=== PATIENT | male | born 1975 | race Caucasian/White ===

== ENCOUNTER 2017-10-21 23:02 | Emergency (ER) | payer SELFPAY ==
[~2017-10-21] VITALS: Ht 180.3 cm; Wt 79.4 kg
[~2017-10-21 23:02] MED LIST: AZIT250T PO; EMTR1TAB12 PO; Fluconazole PO; RITO100T PO; [UNRECOGNIZED DRUG - CODE] PO
[2017-10-21 23:04] VITALS: BP 114/71
--- NOTE | 2017-10-22 00:15 | NUR ---
PT BB SELF C/C RASH/ITCHING AND SWELLING "ALL OVER BODY" X 3 MONTHS. PT STATES "I HAVE WHITE PATCHES IN MY MOUTH FOR 3-4 WKS". PT AMBULATED TO BED WITH STEADY GAIT. PT PLACED ON MONITOR WITH VS WNL. PT SITTING IN BED IN NO ACUTE DISTRESS. AWAITING MD ALLEN.
[2017-10-22] MEDS ORDERED: LIDOCAINE VISCOUS 2% UD 15 ML UDC ONE (00:28)
[2017-10-22] MEDS ORDERED: predniSONE 20 MG TABLET ONE (00:29)
[2017-10-22] MEDS ORDERED: LIDOCAINE VISCOUS 2% UD 15 ML UDC MM ONE (00:30)
[2017-10-22] MEDS ORDERED: predniSONE 20 MG TABLET PO ONE (00:30)
== END 2017-10-22 01:13 | disposition home or self-care (01) ==
LOC: ER 23:07
DX: K13.21 Leukoplakia of oral mucosa, including tongue (principal); R21 Rash and other nonspecific skin eruption; F17.200 Nicotine dependence, unspecified, uncomplicated; Z86.19 Personal history of other infectious and parasitic diseases
CPT/HCPCS: A4606; Z7610

== ENCOUNTER 2018-02-06 18:58 | Emergency (ER) | payer SELFPAY ==
[~2018-02-06] VITALS: Ht 180.3 cm; Wt 79.4 kg
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
--- NOTE | 2018-02-06 19:15 | NUR ---
MD AT BEDSIDE FOR EVALUATION
[2018-02-06] MEDS ORDERED: ACETAMINOPHEN ES 500 MG TABLET ONE (19:27)
[2018-02-06] MEDS ORDERED: ACETAMINOPHEN ES 500 MG TABLET PO ONE (19:30)
[2018-02-06] MEDS ORDERED: IV NS 0.9% 1,000 ML BAG IV ONE (19:30)
--- NOTE | 2018-02-06 19:45 | NUR ---
AT BEDSIDE FOR IV INSERTION. PT REFUSED IV INSERTION, FLUIDS, AND CT WITH CONTRAST. RISKS AND BENEFITS EXPLAINED TO PT, PT VERBALIZED UNDERSTANDING.
--- NOTE | 2018-02-06 19:56 | NUR ---
PT BROUGHT BY RADIOLOGY FOR XRAY AND CT
--- NOTE | 2018-02-06 20:06 | NUR ---
PT BROUGHT BACK FROM RADIOLOGY
--- NOTE | 2018-02-06 21:07 | NUR ---
Patient discharged to home in stable condition. Written and verbal after care instructions given. Patient verbalizes understanding of instruction. Pt ambulatory with a steady gait
[2018-02-06 21:08] VITALS: BP 135/72
== END 2018-02-06 21:19 | disposition home or self-care (01) ==
LOC: ER 19:01
DX: S20.212A Contusion of left front wall of thorax, initial encounter (principal); Z21 Asymptomatic human immunodeficiency virus [HIV] infection status; F17.200 Nicotine dependence, unspecified, uncomplicated; Z79.899 Other long term (current) drug therapy; Y04.0XXA Assault by unarmed brawl or fight, initial encounter; Y93.89 Activity, other specified; Y92.89 Other specified places as the place of occurrence of the external cause; Y99.8 Other external cause status
CPT/HCPCS: 71046; 74176; 99284; A4606; A4649; J7030; Z7610

== ENCOUNTER 2019-06-05 14:58 | Inpatient (IN) | payer MEDICAID ==
[2019-06-03 20:24] VITALS: BP 115/74
[~2019-06-05] VITALS: Ht 180.3 cm; Wt 80.7 kg
--- NOTE | 2019-06-05 14:58 | NUR ---
CHEYENNE RA 878 FROM HOME, C/O FLU-LIKE SX,COUGH/SOB , PT TO BED 6, NAD NOTED, PT ON MONITOR, VSS, PENDING MD ALLEN
[2019-06-05] MEDS ORDERED: IV NS 0.9% 1,000 ML BAG IV ONE (15:30)
[2019-06-05 15:47] LABS: BASOPHILS % (AUTO) 0.7 % (0.0-2.0); EOSINOPHILS % (AUTO) 18.6 % (0.0-6.0); HEMATOCRIT 34 % (39-51); LYMPHOCYTES % (AUTO) 26.2 % (20.0-44.0); MEAN CORPUSCULAR HGB CONC 33 g/dl (31.0-36.0); MEAN CORPUSCULAR VOLUME 85 fL (80-96); MONOCYTES # (AUTO) 0.4 /CMM (0.1-1.30); NEUTROPHILS # (AUTO) 1.7 /CMM (1.8-8.9); NEUTROPHILS % (AUTO) 44.5 % (43.0-81.0); PLATELET COUNT (AUTO) 111 /CMM (150-450); RED BLOOD CELL COUNT(AUTO) 3.97 MIL/uL (4.5-6.0); WHITE BLOOD COUNT (AUTO) 3.7 K/uL (4.3-11.0)
[2019-06-05] MEDS ORDERED: VANCOMYCIN 1 GM in IV D5W 250 ML IV ONE (16:00)
[2019-06-05] MEDS ORDERED: CEFEPIME 1 GM in IV D5W 50 ML IV ONE ×2 (16:00→18:30)
[2019-06-05] MEDS ORDERED: SULFAMETHOXAZOLE/TRIMETHOPRIM 20 ML in IV D5W 500 ML IV SCH (16:00)
[2019-06-05] MEDS ORDERED: DEXAMETHASONE SOD PHOSPHATE 10 MG/ML VIAL IV ONE (16:00)
[2019-06-05 16:07] LABS: SODIUM SERUM 135 mmol/L (136-145)
[2019-06-05 16:08] LABS: CALCIUM, SERUM 7.9 mg/dL (8.5-10.1); CARBON DIOXIDE 30 mmol/L (21-32); CHLORIDE 101 mmol/L (98-107); CREATININE 0.8 mg/dL (0.6-1.3); GLUCOSE 100 mg/dL (74-106); POTASSIUM 4.6 mmol/L (3.5-5.1); UREA NITROGEN, BLOOD 20 mg/dL (7-18)
[2019-06-05] MEDS ORDERED: DEXAMETHASONE SOD PHOSPHATE 10 MG/ML VIAL ONE (16:16)
[2019-06-05 16:24] LABS: ALKALINE PHOSPHATASE 58 U/L (46-116); ASPARTATE AMINOTRANSFERASE 28 U/L (15-37); BILIRUBIN,TOTAL 0.2 mg/dL (0.2-1.0)
[2019-06-05 16:25] LABS: ALANINE AMINOTRANSFERASE 28 U/L (12-78); ALBUMIN 2.3 g/dL (3.4-5.0); B-TYPE NATRIURETIC PEPTIDE 55 PG/ML (0-125); TOTAL PROTEIN, SERUM 7.7 g/dL (6.4-8.2)
--- NOTE | 2019-06-05 16:45 | NUR ---
PT. 53 Y OLD AWAKE AND ALERT IN ER ROOM # 6 REFUSED ABG AND BIPAP USE ER INFORMED AND PT. CONVICTED TO USE BIPAP FOR SAFETY, BUT PT. STILL REFUSING THE ABG, BIPAP PLACED ON AT 1645 WITH NOTED SETTINGS, AND PLUGGED TO RED OUT LET AND ALARMS ARE SET AND FUNCTIONAL. B/S BILATERALLY DIMINISHED AND AMBU BAG REMAIN AT THE BEDSIDE. PT. KHALIF. BIPAP AND EDUCATED ABOUT THE MACHINE. CONTINUE TO MONITOR. Addendum: 06/05/19 at 1858 by PRAMOD ESPINOSA RT Amended: Links added.
[2019-06-05] MEDS ORDERED: SULF1TAB48 PO (17:16)
[2019-06-05 17:38] LABS: APPEARANCE,URINE Clear (CLEAR); BILIRUBIN,URINE Negative (NEGATIVE); BLOOD, URINE Trace-intact Ery/uL (NEGATIVE); COLOR,URINE Yellow (YELLOW); KETONES,URINE Negative (NEGATIVE); LEUKOCYTE ESTERASE ,URINE Negative (NEGATIVE); NITRITE, URINE Negative (NEGATIVE); PROTEIN,URINE Negative (NEGATIVE); UGLUCOSE Negative (NEGATIVE); UROBILINOGEN,URINE 0.2 EU/dL (0.2)
[2019-06-05 17:58] LABS: BACTERIA,URINE Rare /HPF (None Seen); SQUAMOUS EPITHELIAL CELL,UR None Seen /HPF (None Seen)
[2019-06-05 17:59] LABS: RBC,URINE 0-2 /HPF (0-2); WBC,URINE NONE SEEN /HPF (0-3)
--- NOTE | 2019-06-05 18:05 | NUR ---
ICU 259
[2019-06-05] MEDS ORDERED: ZOLPIDEM TARTRATE 5 MG TABLET PO PRN (18:30)
[2019-06-05] MEDS ORDERED: Z GUARD REMEDY 2 OZ OINT TP PRN (18:30)
[2019-06-05] MEDS ORDERED: ACETAMINOPHEN 325 MG TABLET PO PRN (18:30)
[2019-06-05] MEDS ORDERED: MAGNESIUM HYDROXIDE 30 ML UDC PO PRN (18:30)
[2019-06-05] MEDS ORDERED: HYDROCODONE/APAP 5/325MG 1 EACH TABLET PO PRN (18:30)
[2019-06-05] MEDS ORDERED: ONDANSETRON HCL/PF 4 MG/2 ML VIAL IVP PRN (18:30)
[2019-06-05] MEDS ORDERED: MAG HYDROX/AL HYDROX/SIMETH 30 ML UDC PO PRN (18:30)
--- NOTE | 2019-06-05 18:31 | NUR ---
called for report, no nurse until pm shift.
--- NOTE | 2019-06-05 19:55 | NUR ---
CALLED PM SHIFT NURSE, NOT READY AT THE MOMENT.
--- NOTE | 2019-06-05 19:58 | NUR ---
I WAS DRAWING BLOOD FOR A PT WHEN ER CALLED FOR REPORT, I CALLED BACK TO ER SOON I WAS DONE WITH BLOOD DRAW AFTER 3 MINUTES
--- NOTE | 2019-06-05 20:06 | NUR ---
REPORT GIVEN TO KIM ARMAS FOR JHONATAN PT WILL BE TRANSPORTED TO ICU VIA ACLS PROTOCOL
--- NOTE | 2019-06-05 20:22 | NUR ---
pt transported to icu
[2019-06-05 20:24] VITALS: BP 115/74
[2019-06-05 20:30] VITALS: BP 115/74
--- NOTE | 2019-06-05 20:30 | NUR ---
ENGINEERING TEAM SUPERVISOR - NOTES - PT RECEIVED FROM ER FOR PNEUMONIA, COMPLAINING OF SOB AND LOW O2SAT, REQUIRING BIPAP. PT IS AWAKE, ALERT, ORIENTED X 4, PT IS ABLE TO WALK, STAND AND USE ALL EXTREMITIES. PT REFUSED BIPAP WHEN HE ARRIVED TO ICU AND HE WAS PLACED ON 12 LPM VIA SIMPLE MASK AFTER DESATTING INTO LOW 80S, HE IS NOW SATTING 92%. PT IS IN SINUS RHYTHM HR 80S, BP WNL. PT IS USING URINAL, ADEQUATE CLEAR YELLOW URINE OUTPUT. SKIN IS INTACT, PT HAS ILSA 20G IV AND IS REFUSING ADDITIONAL IV ATTEMPT. PT GIVEN ANTIBIOTICS AND STARTED ON IVF NS @ 100 ML/HR. WILL CONTINUE TO MONITOR
[2019-06-05] MEDS: IV NS 0.9% 1,000 ML IV PRN (20:35)
[2019-06-05] MEDS: AZITHROMYCIN 500 MG in IV D5W 250 ML IV SCH (20:39)
[2019-06-05 21:00] VITALS: BP 109/70
[2019-06-05] MEDS: methylPREDNISolone SOD SUCC 125 MG/2ML VIAL IV SCH (21:52)
[2019-06-05 22:00] VITALS: BP 115/66
[2019-06-05 23:00] VITALS: BP 110/65
[2019-06-06] VITALS (30 sets, daily range): BP systolic 93–127; BP diastolic 43–82
--- NOTE | 2019-06-06 04:45 | NUR ---
PT REFUSED LAB DRAW, PT EDUCATED ON IMPORTANCE OF LABS, AND PT STILL WANTS TO GO BACK TO SLEEP, WILL CONTINUE TO MONITOR
[2019-06-06] MEDS: methylPREDNISolone SOD SUCC 125 MG/2ML VIAL IV SCH ×3 (09:33→18:24)
[2019-06-06 11:13] LABS: BASOPHILS % (AUTO) 0.3 % (0.0-2.0); EOSINOPHILS % (AUTO) 0.1 % (0.0-6.0); HEMATOCRIT 32 % (39-51); HEMOGLOBIN 10.5 g/dL (13.5-17.5); LYMPHOCYTES # (AUTO) 0.9 /CMM (0.8-4.8); LYMPHOCYTES % (AUTO) 22.4 % (20.0-44.0); MEAN CORPUSCULAR HGB CONC 32 g/dl (31.0-36.0); MEAN CORPUSCULAR VOLUME 85 fL (80-96); MONOCYTES # (AUTO) 0.3 /CMM (0.1-1.30); MONOCYTES % (AUTO) 7.2 % (2.0-12.0); NEUTROPHILS # (AUTO) 2.7 /CMM (1.8-8.9); PLATELET COUNT (AUTO) 107 /CMM (150-450); RED BLOOD CELL COUNT(AUTO) 3.81 MIL/uL (4.5-6.0); WHITE BLOOD COUNT (AUTO) 3.9 K/uL (4.3-11.0)
[2019-06-06 12:02] LABS: CREATININE 0.6 mg/dL (0.6-1.3); PHOSPHORUS 3.7 mg/dL (2.5-4.9); POTASSIUM 4.8 mmol/L (3.5-5.1)
[2019-06-06] MEDS: IV NS 0.9% 1,000 ML IV PRN ×2 (14:36→20:38)
[2019-06-06] MEDS: SULFAMETHOXAZOLE/TRIMETHOPRIM 20 ML in IV D5W 500 ML IV SCH ×2 (15:13→21:11)
[2019-06-06] MEDS: CEFEPIME 2 GM in IV D5W 100 ML IV SCH (18:24)
[2019-06-06] MEDS ORDERED: FLUCONAZOLE IN NS 200 MG in PREMIX 1 EA IV SCH ×2 (20:00)
--- NOTE | 2019-06-06 20:00 | NUR ---
DRY CLEANING MANAGER - NOTES - PT RECEIVED SLEEPING, EASY TO AROUSE, ALERT, ORIENTED X 4, PT IS ABLE TO WALK, STAND AND USE ALL EXTREMITIES. PT ON 12 LPM VIA SIMPLE MASK, SATTING LOW 90S%. PT IS IN SINUS RHYTHM HR 80S, BP WNL. PT IS USING URINAL, ADEQUATE CLEAR YELLOW URINE OUTPUT. SKIN IS INTACT, PT HAS ILSA 20G IV AND IS REFUSING ADDITIONAL IV ATTEMPT. PT ON ANTIBIOTICS AND NS @ 100 ML/HR. WILL CONTINUE TO MONITOR
[2019-06-06] MEDS: AZITHROMYCIN 500 MG in IV D5W 250 ML IV SCH (20:11)
[2019-06-07] VITALS (19 sets, daily range): BP systolic 111–130; BP diastolic 54–76
--- NOTE | 2019-06-07 00:05 | NUR ---
PT DESATTING TO 87% ON 15 LPM SIMPLE MASK, PT CHANGED TO NON REBREATHER AT 15 LPM, PT NOW SATTING MID 90S %
[2019-06-07 04:06] LABS: *BASOS 0 % (Not Estab.); *EOS 0 % (Not Estab.); *HCT 32.2 % (37.5-51.0); *HGB 10.2 g/dL (13.0-17.7); *IMMATURE GRANULOCYTES 0 % (Not Estab.); *LYMPHOCYTES 23 % (Not Estab.); *MCH 26.8 pg (26.6-33.0); *MCHC 31.7 g/dL (31.5-35.7); *MCV 85 fL (79-97); *MONOCYTES 4 % (Not Estab.); *MONOS, ABSOLUTE 0.2 x10E3/uL (0.1-0.9); *NEUTROPHILS 73 % (Not Estab.); *NEUTROPHILS, ABSOLUTE 3.3 x10E3/uL (1.4-7.0); *PLT 132 x10E3/uL (150-450); *RBC 3.81 x10E6/uL (4.14-5.80)
[2019-06-07] MEDS: SULFAMETHOXAZOLE/TRIMETHOPRIM 20 ML in IV D5W 500 ML IV SCH ×2 (04:29→16:13)
--- NOTE | 2019-06-07 11:48 | NUR ---
ANNUAL GIVING OFFICER NOTE RECEIVED PATENT FROM MERISSA ,PATIENT ALERT ORIENTED, ON SIMPLE MAST AT THIS TIME SAT 92% , ON TELE MONITOR SR HR 82 , RT UPPER ARM HL INTACT ON IVF ORDERED , BED IN LOWEST AND LOCKED POSITION , WILL CONT TO MONITOR
[2019-06-07] MEDS: methylPREDNISolone SOD SUCC 125 MG/2ML VIAL IV SCH ×3 (11:51→16:19)
--- NOTE | 2019-06-07 12:19 | NUR ---
ICU R NOTE SOLU-MEDROL WAS GIVEN BY MERISSA ARMAS 26 MIN AGO WILL F\U
--- NOTE | 2019-06-07 12:34 | NUR ---
BRIDGE CLUB MANAGER NOTE SPUTUM FOR AF[employer] COLLECTED SENT TO LAB
--- NOTE | 2019-06-07 12:37 | NUR ---
FELT FINISHER NOTE ORTHOSTATIC BP DONE ONLY BOTH POSITION SUPINE AND SITTING UNABLE TO STAND UP AT THIS TIME
[2019-06-07 13:08] LABS: *% CD 4 POS. LYMPH 1.6 % (30.8-58.5); *ABSOLUTE CD 4 HELPER 16 /uL (359-1519); *ABSOLUTE CD 8 SUPPRESSOR 720 /uL (109-897); *CD4/CD8 RATIO 0.02 (0.92-3.72)
--- NOTE | 2019-06-07 13:51 | NUR ---
PETTY RN NOTES RECEIVED PATENT FROM ICU, ALERT ORIENTED X4 ,ON SIMPLE MASK ON 15 L SAT 95%, ON TELE MONITOR SR HR 98 , RT UPPER ARM HL INTACT ON IVF ORDERED, BED IN LOWEST AND LOCKED POSITION , WILL CONT TO MONITOR CALL LIGHT WITHIN REACH
[2019-06-07] MEDS: IV NS 0.9% 1,000 ML IV PRN (14:52)
--- NOTE | 2019-06-07 15:36 | NUR ---
AEROSPACE CONTROL AND WARNING SYSTEMS NOTE CALLED MRI DEPARTMENT STATED THAT WILL BE DONE TODAY
--- NOTE | 2019-06-07 15:55 | NUR ---
Social service consult requested by NATANAEL Lanier for possible homelessness. Per MD notes and chart review, pt. is a 44-year-old male, with history of HIV, Syphilis and recent pneumonia who presented to the ED for evaluation of dizziness for the past 1 week. ELECTRICIAN THIRD contacted pt's PAEWL Angulo, regarding if pt. is homeless. Per PAWEL Angulo, pt is not homeless and resides with his family in [place]. No other social service needs are requested at this time. ELECTRICIAN THIRD is available, if needed.
--- NOTE | 2019-06-07 16:12 | NUR ---
RT Sputum sample obtained and given to Ochoa Angulo.
--- NOTE | 2019-06-07 16:23 | NUR ---
GALINDO RN NOTE ON BREATHING TX ORDERED
--- NOTE | 2019-06-07 18:55 | NUR ---
PETTY RN NOTE MRI DONE
[2019-06-07] MEDS: ETHAMBUTOL HCL (400 MG) 400 MG TABLET PO SCH (18:59)
[2019-06-07] MEDS: RIFAMPIN 300 MG CAPSULE PO SCH (18:59)
--- NOTE | 2019-06-07 19:27 | NUR ---
RN OPENING NOTES RECEIVED PATIENT FROM PAWEL BRADFORD. PATIENT AWAKE IN BED. A/O X 4. PATIENT ABLE TO VERBALIZE NEEDS. ON SIMPLE MASK ON 15 L, TOLERATING WELL. TELE MONITOR SHOWING SR HR 76. NO COMPLAINTS OF PAIN OR DISCOMFORT AT THIS TIME. IV SITE ILSA IN PLACE, INTACT, PATENT, NO SIGNS OF INFECTION/INFILTRATION. SAFETY PRECAUTIONS IMPLEMENTED; CALL LIGHT WITHIN REACH, BED LOW, BED LOCKED, BILATERAL UPPER SIDE RAILS UP. WILL CONTINUE TO MONITOR.
[2019-06-07] MEDS: CEFEPIME 2 GM in IV D5W 100 ML IV SCH (19:28)
[2019-06-07] MEDS: AZITHROMYCIN 500 MG in IV D5W 250 ML IV SCH (20:06)
--- NOTE | 2019-06-08 00:05 | NUR ---
RN NOTES PATIENT REFUSED VITAL SIGNS AT 0000 AND MEDICATION DUE AT 0000. PATIENT STATES HE DOES NOT WANT TO BE BOTHERED. EXPLAINED THE RISKS AND BENEFITS. PATIENT STILL INSISTS ON REFUSING MED IV AND VITAL SIGNS AT THIS TIME. WILL CONTINUE TO MONITOR.
--- NOTE | 2019-06-08 04:05 | NUR ---
RN NOTES PATIENT NONCOMPLIANT WITH VITAL SIGNS DUE FOR 0400. PATIENT STATES HE DOES NOT WANT TO BE DISTURBED. HE STATES "LET ME GET SOME REST. DO NOT DISTURB ME. PLEASE TURN OFF THE LIGHT." EXPLAINED THE RISKS AND BENEFITS OF VITAL SIGNS. PATIENT INSISTS ON REFUSING VITAL SIGNS AT THIS TIME. PATIENT NON COMPLIANT. WILL CONTINUE TO MONITOR.
--- NOTE | 2019-06-08 06:11 | NUR ---
RN CLOSING NOTES PATIENT IS CURRENTLY ASLEEP, EASILY AWAKENED. ON SIMPLE MASK ON 15 LPM, TOLERATING WELL. TELE MONITOR SHOWING SR 74. NO SIGNS OF FACIAL GRIMACING INDICATING PAIN OR DISCOMFORT AT THIS TIME. IV SITE ILSA IN PLACE, INTACT AND PATENT, NO SIGNS OF INFECTION/INFILTRATION, FLUSHED. PATIENT KEPT CLEAN, DRY AND COMFORTABLE. ALL NEEDS MET ON SHIFT. MEDS THAT WERE GIVEN SHOW NO ADVERSE EFFECTS. SAFETY PRECAUTIONS IMPLEMENTED; CALL LIGHT WITHIN REACH, BED LOW, BED LOCKED, BILATERAL UPPER SIDE RAILS UP. WILL ENDORSE TO DAYSWAFT NURSE FOR CONTINUITY OF CARE.
[2019-06-08 08:00] VITALS: BP 116/70
[2019-06-08] MEDS: ETHAMBUTOL HCL (400 MG) 400 MG TABLET PO SCH (08:16)
[2019-06-08] MEDS: methylPREDNISolone SOD SUCC 125 MG/2ML VIAL IV SCH ×3 (08:16→16:03)
--- NOTE | 2019-06-08 08:46 | NUR ---
leasing consultant Notes Patient is in bed. Patient verbalizes anxiety and desire to go home. MD Connei Perez notified. Bed is in lowest position, call light within reach, patient is able to make his needs known to staff. Teaching completed on reason for isolation and purpose of medication.
[2019-06-08] MEDS ORDERED: FLUCONAZOLE (100 MG) 100 MG TABLET PO SCH (09:00)
[2019-06-08] MEDS ORDERED: SODIUM CL FOR INHALATION 3% 15 ML VIAL.NEB IH ONE ×2 (09:30→17:00)
[2019-06-08] MEDS: SULFAMETHOXAZOLE/TRIMETHOPRIM 20 ML in IV D5W 500 ML IV SCH ×5 (09:45→23:48)
[2019-06-08] MEDS: RIFAMPIN 300 MG CAPSULE PO SCH (09:46)
[2019-06-08] MEDS ORDERED: LORAZEPAM 0.5 MG TABLET PO PRN (10:00)
--- NOTE | 2019-06-08 10:35 | NUR ---
telephone exchange operator note endorsed care to eden graham
[2019-06-08 12:00] VITALS: BP 111/71
[2019-06-08] MEDS: IV NS 0.9% 1,000 ML IV PRN (13:56)
[2019-06-08 16:00] VITALS: BP 123/78
[2019-06-08] MEDS: CEFEPIME 2 GM in IV D5W 100 ML IV SCH (18:10)
--- NOTE | 2019-06-08 18:30 | NUR ---
SIGNS AND DISPLAYS SALESPERSON NOTES PATIENT A/O X 4 AT TIMES PATIENT IS NOT COOPERATIVE WITH CARE. PATIENT WANTS TO LEAVE AND GO AMA. PATIENT IS ON TELE MONITOR SR8-'S PATIENTS SKIN IS INTACT. PATIENT IS USING A URINAL. WITH 400 ML COLOR IS ORANGE OUTPUT. NO PAIN, NO SIGNS OF ACUTE RESPIRATORY DISTRESS BED LOCKED AND LOWEST POSITION CALL LIGHT WITH IN REACH ALL SAFEY MEASURE IMPLEMENTED PER HOSPITAL POLICY
--- NOTE | 2019-06-08 19:25 | NUR ---
RN OPENING NOTES: PATIENT IN BED, AWAKE, AND VERBALLY RESPONSIVE. NO SOB. HOB ELEVATED. NO C/O PAIN AT THIS TIME. AAOX4. SAFETY PRECAUTIONS IMPLEMENTED. BED LOCKED AND IN LOWEST POSITION FOR SAFETY. SIDE RAILS X 2 UP. CALL LIGHT PLACED WITHIN REACH. WILL CONT. TO MONITOR. Addendum: 06/08/19 at 2105 by CHRIS MARTEL RN ON PLACEMENT SECRETARY, SHOWING NSR, HR 80s.
[2019-06-08 20:00] VITALS: BP 132/83
[2019-06-08] MEDS ORDERED: AZITHROMYCIN 250 MG TABLET PO SCH (20:00)
[2019-06-09] VITALS: BP 147/80
--- NOTE | 2019-06-09 01:40 | NUR ---
RN NOTE: AT 0045, PATIENT VERBALIZED HE WANTS TO LEAVE AGAINST MEDICAL ADVICE (AMA). UPON FURTHER ASSESSMENT, PATIENT STATED, "I HAVE MADE UP MY MIND. I WANT TO LEAVE THIS HOSPITAL." PATIENT STATED HE FEELS ANXIOUS AND DOES NOT WANT TO STAY ANY LONGER BECAUSE HE HAS BEEN HERE MORE THAN 3 DAYS. OFFERED PRN ANTI-ANXIETY MEDICATION BUT PATIENT REFUSED. EXPLAINED TO PATIENT THE RISKS AND CONSEQUENCES OF LEAVING THE HOSPITAL AND THE BENEFITS OF CONTINUED TREATMENT AND HOSPITALIZATION. CHARGE NURSE AND RN EXPLAINED TO HIM THAT AFB CULTURE SMEAR IS STILL IN PROCESS TO RULE OUT TB. PATIENT STILL REFUSED FURTHER CARE. AT 0105, SPOKE WITH DR. JYOTI GARCIA AND MADE AWARE OF PATIENT'S PLAN OF CARE AND THE INCIDENT. PER MD, OK TO HAVE PATIENT GO AMA. PATIENT IS AAOX4 AND IN STABLE CONDITION. PATIENT SIGNED AMA FORM. IV ACCESS (R) UPPER ARM G20 AND TELE MONITOR REMOVED. PATIENT LEFT THE UNIT WITH ALL PERSONAL BELONGINGS TAKEN. NURSING CLINICAL DATA MANAGEMENT MANAGER JOHN MADE AWARE. WILL NOTIFY WOOD (INFECTION CONTROL) TO CONTACT DEPARTMENT OF HEALTH. Addendum: 06/09/19 at 0300 by CHRIS MARTEL RN AMA FORM SIGNED BY PATIENT PLACED IN HIS CHART. Addendum: 06/09/19 at 0739 by CHRIS MARTEL RN PM CHARGE NURSE KAREN ENDORSED TO AM CHARGE NURSE NICHO ABOUT THE INCIDENT AND TO NOTIFY WOOD (INFECTION CONTROL).
== END 2019-06-09 01:30 | disposition left against medical advice (07) | DRG 974 ==
LOC: ER 15:05 → ICU 18:13 → TELE1 06-07 13:25
PROVIDERS: ADMIT Internal Medicine; ATTEND Internal Medicine
DX: B20 Human immunodeficiency virus [HIV] disease (principal); J96.01 Acute respiratory failure with hypoxia; G93.41 Metabolic encephalopathy; E43 Unspecified severe protein-calorie malnutrition; B59 Pneumocystosis; G93.6 Cerebral edema; E87.1 Hypo-osmolality and hyponatremia; I76 Septic arterial embolism; Z87.01 Personal history of pneumonia (recurrent); F19.10 Other psychoactive substance abuse, uncomplicated; Z91.19 Patient's noncompliance with other medical treatment and regimen; R93.0 Abnormal findings on diagnostic imaging of skull and head, not elsewhere classified; D63.8 Anemia in other chronic diseases classified elsewhere; Z68.24 Body mass index [BMI] 24.0-24.9, adult; F17.210 Nicotine dependence, cigarettes, uncomplicated
CPT/HCPCS: 36415; 70450-TC; 70551-TC; 71045-TC; 71250-TC; 80048-TC; 80076-TC; 80305; 81000-TC; 83605-TC; 83615-TC; 83735-TC; 83880; 84100-TC; 84484-TC; 85025-TC; 85730-TC; 86360; 87040-TC; 87081-TC; 87086-TC; 87116; 87206; 87899; 93307-TC; 94640-TC; 94760-TC; A4216; A4218; G0378; J0456; J0692; J1100; J1450; J2405; J2930; J3370; J3490; J7030; J7060

== ENCOUNTER 2019-06-15 01:40 | Inpatient (IN) | payer MEDICAID ==
[~2019-06-15] VITALS: Ht 180.3 cm; Wt 73.0 kg
[2019-06-15] VITALS (19 sets, daily range): BP systolic 100–137; BP diastolic 56–83
[~2019-06-15 01:40] MED LIST changes: -AZIT250T PO; -EMTR1TAB12 PO; -Fluconazole PO; -RITO100T PO; +SULF1TAB48 PO; -[UNRECOGNIZED DRUG - CODE] PO
--- NOTE | 2019-06-15 01:47 | NUR ---
PT BIB RA FROM HOME C/O SOB. PT STATES THAT HE WAS HERE 2 DAYS AGO FOR PNEUMONIA, BUT LEFT AMA BECAUSE HE WAS ANXIOUS. PT IS HIV POSITIVE. PT STATES HE RECENTLY USED CRYSTAL METH ABOUT A DAY AGO AND IS HAVING TROUBLE BREATHING. PT HAS COUGH WITH BLOODY SPUTUM. AAOX4. PLACED ON SIMPLE FACE MASK OF 10L. CONNECTED TO MONITOR.
--- NOTE | 2019-06-15 01:49 | NUR ---
RT CALLED FOR BREATHING TREATMENT
--- NOTE | 2019-06-15 01:50 | NUR ---
UNABLE TO FIND A VEIN, NOTIFIED.
--- NOTE | 2019-06-15 01:51 | NUR ---
UNABLE TO START IV LINE ON PATIENT. NOTIFIED.
--- NOTE | 2019-06-15 01:58 | NUR ---
FLU SWAB SAMPLE COLLECTED AND SENT WITH MANAGEMENT LECTURER FOR TESTING
[2019-06-15] MEDS ORDERED: methylPREDNISolone SOD SUCC 125 MG/2ML VIAL IV ONE ×2 (02:00→05:30)
[2019-06-15] MEDS ORDERED: ALBUTEROL FS 2.5 MG/3 ML VIAL.NEB CONTNEB ONE (02:00)
[2019-06-15] MEDS ORDERED: IPRATROPIUM NEB FS 0.5 MG/2.5 ML AMPUL.NEB NEB ONE (02:00)
--- NOTE | 2019-06-15 02:01 | NUR ---
POKER IN AT BEDSIDE
[2019-06-15] MEDS ORDERED: methylPREDNISolone SOD SUCC 125 MG/2ML VIAL ONE (02:06)
[2019-06-15] MEDS ORDERED: ALBUTEROL FS 2.5 MG/3 ML VIAL.NEB ONE (02:12)
[2019-06-15] MEDS ORDERED: IPRATROPIUM NEB FS 0.5 MG/2.5 ML AMPUL.NEB ONE (02:12)
--- NOTE | 2019-06-15 02:29 | NUR ---
RT AT BEDSIDE FOR ABG BLOOD DRAW
--- NOTE | 2019-06-15 02:30 | NUR ---
PATIENT REFUSED BLOOD DRAW AT THIS TIME BECAUSE PATIENT DOES NOT WANT NURSE TO ATTEMPT ANOTHER IV . NOTIFIED.
--- NOTE | 2019-06-15 02:30 | NUR ---
PT REFUSED ABG BLOOD TO BE DRAWN. NOTIFIED.
--- NOTE | 2019-06-15 02:34 | NUR ---
RT PT REFUSING ABG AT THIS TIME. RN AND MD ETIENNE AWARE.
--- NOTE | 2019-06-15 03:07 | NUR ---
NURSE DIRECTOR MEDICAL ECONOMICS CALLED TO PAGE PICC LINE NURSE
--- NOTE | 2019-06-15 03:46 | NUR ---
URINE COLLECTED AND SENT TO LAB FOR TESTING.
--- NOTE | 2019-06-15 03:56 | NUR ---
called RT to place the pt on BIPAP, called house sup for PETTY bed
--- NOTE | 2019-06-15 04:08 | NUR ---
RT AT BEDSIDE TO PLACE BIPAP ON PT.
--- NOTE | 2019-06-15 04:12 | NUR ---
repaged dr. Chand
[2019-06-15] MEDS ORDERED: OLANZAPINE 10 MG VIAL IM ONE ×2 (04:15→04:30)
--- NOTE | 2019-06-15 04:15 | NUR ---
DR ETIENNE ON THE PHONE W/ DR. MAGALLANES
--- NOTE | 2019-06-15 04:30 | NUR ---
PT TAKEN OFF BIPAP, PT DOES NOT WANT BIPAP, PREFERS NONREBREATHER INSTEAD.
--- NOTE | 2019-06-15 05:15 | NUR ---
ADDICTIONS RECOVERY SPECIALIST AT BEDSIDE DRAWING BLOOD AND CULTURES.
[2019-06-15 05:18] LABS: BASOPHILS % (AUTO) 0.5 % (0.0-2.0); EOSINOPHILS % (AUTO) 9.2 % (0.0-6.0); HEMATOCRIT 31 % (39-51); HEMOGLOBIN 10.3 g/dL (13.5-17.5); LYMPHOCYTES # (AUTO) 0.3 /CMM (0.8-4.8); LYMPHOCYTES % (AUTO) 10.2 % (20.0-44.0); MEAN CORPUSCULAR HGB CONC 33 g/dl (31.0-36.0); MEAN CORPUSCULAR VOLUME 86 fL (80-96); MONOCYTES # (AUTO) 0.1 /CMM (0.1-1.30); MONOCYTES % (AUTO) 3.8 % (2.0-12.0); NEUTROPHILS # (AUTO) 2.6 /CMM (1.8-8.9); NEUTROPHILS % (AUTO) 76.3 % (43.0-81.0); PLATELET COUNT (AUTO) 101 /CMM (150-450); RED BLOOD CELL COUNT(AUTO) 3.63 MIL/uL (4.5-6.0); WHITE BLOOD COUNT (AUTO) 3.4 K/uL (4.3-11.0)
[2019-06-15] MEDS ORDERED: SULFAMETHOXAZOLE/TRIMETHOPRIM 10 ML VIAL IV ONE ×2 (05:18→05:24)
[2019-06-15] MEDS ORDERED: D5W IV ONE (05:30)
[2019-06-15] MEDS ORDERED: SULFAMETHOXAZOLE IV ONE (05:30)
[2019-06-15] MEDS ORDERED: TRIMETHOPRIM IV ONE (05:30)
[2019-06-15] MEDS ORDERED: VANCOMYCIN 1 GM in IV D5W 250 ML IV ONE (05:30)
[2019-06-15 05:31] LABS: CALCIUM, SERUM 7.7 mg/dL (8.5-10.1); CARBON DIOXIDE 26 mmol/L (21-32); CHLORIDE 104 mmol/L (98-107); CREATININE 0.6 mg/dL (0.6-1.3); GLUCOSE 126 mg/dL (74-106); POTASSIUM 3.1 mmol/L (3.5-5.1); SODIUM SERUM 137 mmol/L (136-145); UREA NITROGEN, BLOOD 21 mg/dL (7-18)
--- NOTE | 2019-06-15 05:32 | NUR ---
PATIENT SENT TO CT
[2019-06-15 05:44] LABS: ALANINE AMINOTRANSFERASE 19 U/L (12-78); ALKALINE PHOSPHATASE 42 U/L (46-116); ASPARTATE AMINOTRANSFERASE 28 U/L (15-37); B-TYPE NATRIURETIC PEPTIDE 251 PG/ML (0-125); BILIRUBIN,TOTAL 0.2 mg/dL (0.2-1.0); TOTAL PROTEIN, SERUM 6.2 g/dL (6.4-8.2)
[2019-06-15] MEDS ORDERED: CT SWABBABLE VALVE TRANS SET 1 EA INFUS.SET MC ONE (05:47)
[2019-06-15] MEDS ORDERED: IV NS 0.9% 250 ML IV ONE (05:47)
[2019-06-15] MEDS ORDERED: IOHEXOL-350 100 ML VIAL IV ONE (05:47)
--- NOTE | 2019-06-15 05:48 | NUR ---
PATIENT RETURNED FROM CT
[2019-06-15] MEDS ORDERED: LORAZEPAM INJ 2 MG/ML VIAL IV PRN (06:00)
[2019-06-15] MEDS ORDERED: MORPHINE SULFATE INJ 2 MG/ML DISP.SYRIN IV PRN (06:00)
[2019-06-15] MEDS ORDERED: ONDANSETRON HCL/PF 4 MG/2 ML VIAL IVP PRN (06:00)
--- NOTE | 2019-06-15 06:31 | NUR ---
Konrad dowell in [facility] - 06/15/19 at 0633 by [facility] [id number]
--- NOTE | 2019-06-15 06:33 | NUR ---
REPORT GIVEN TO SMOOTH ARMAS FOR JHONATAN.
[2019-06-15] MEDS ORDERED: VANCOMYCIN 1 GM VIAL ONE (06:43)
--- NOTE | 2019-06-15 07:30 | NUR ---
RN NOTE PT IN BED 111/2 WITHOUT DETAILED REPORT. PT AGITATED ,CONFUSED, ON NON REBREATHER MASK 15 L/MIN. SATURATION 95%, IV VANCO INFUSING. REFUSED TELEMETRY LEADS AND BOX PLACED ON THE CHEST. CALL LIGHT WITHIN REACH, WILL MONITOR.
[2019-06-15] MEDS: SULFAMETHOXAZOLE/TRIMETHOPRIM 20 ML in IV D5W 500 ML IV SCH ×2 (08:00→16:00)
--- NOTE | 2019-06-15 08:22 | NUR ---
RN NOTE PT TRANSFERRED TO ROOM 101 FOR POSSIBLE TB. PT COMBATIVE REMOVES OXYGEN MASK. REFUSED IV TO BE CONNECTED BACK. COMBATIVE, SATURATION DROPS TO 60-56%. PER GOKUL BETTS TO RESTRAINT BOTH WRISTS IF NON COMPLIANT. BUT LATER PT CALMED DOWN, ASKED FOR WATER, JUICE AND FOOD.
[2019-06-15] MEDS: PANTOPRAZOLE 40 MG TABLET.DR PO SCH (08:46)
[2019-06-15] MEDS: Potassium Chloride 20 MEQ in IV NS 0.9% 1,000 ML IV PRN (08:46)
--- NOTE | 2019-06-15 09:00 | NUR ---
RN NOTE BACTRIM SCHEDULED FOR 0800 NOT GIVEN BECAUSE PT HAD RECEIVED DOSE IN ER AROUND 0600 THIS AM BEFORE COMING TO [facility]. PHARMACY AWARE.
--- NOTE | 2019-06-15 10:02 | NUR ---
ABG ATTEMPTED ON PATIENT. PROCEDURE AND PURPOSE EXPLAINED TO PATIENT. PATIENT VERBALLY REFUSED AND BECAME COMBATIVE. AT THIS TIME IT IS TOO DANGEROUS TO ATTEMPT ABG. PAWEL PEREZ NOTIFIED
[2019-06-15] MEDS ORDERED: DOSE PER PHARMACY MICAFUNGIN 1 EA XX PRN (10:30)
--- NOTE | 2019-06-15 10:42 | NUR ---
RN NOTE PT TRANSFERRED TO ICU 255 REPORT GIVEN TO RADHA BEAUTY COUNSELOR FOR JHONATAN. PT WAS ON NON REBREATHER MASK, BECAME AGITATED UPON TRANSFERRING, MOTHER AT BEDSIDE.
[2019-06-15] MEDS ORDERED: MICAFUNGIN SODIUM 100 MG in IV NS 0.9% 100 ML IV SCH (11:00)
--- NOTE | 2019-06-15 11:00 | NUR ---
COPY CENTER SPECIALIST ADMITTING NOTES Pt transferred from [facility] to ICU 255 for Acute Respiratory Failure. Pt transferred via bed accompanied by RN, WORKERS' COMPENSATION COMMISSIONER & mother. Pt is agitated, restless & combative. Refused to be assess & clean - charge nurse is aware. Pt on NRB at 15lpm, SOB, sating at 94%. ST on telemonitor. Has LH G20 SL, flushing well. Reconnect on current IVF & started IV KCl replacement, pt started to scream & shout to the staff. Refusing IV treatment despite of slowing down the KCl rate. CN at bedside. Disconnected from IVF & KCl IV per pt request despite of health teaching given. Juan BATTERY TECHNICIAN made aware w/ NNO. Dr. Kent updated about pt condition. Informed him that pt being non compliant w/ tx & care being given. Per MD to place pt on hi flow & order coccidiodies AB panel, serum & pneumocystis smear. RT made aware. Pt provided w/ sterile cup, instructed to spit phlegm if there's any. Lucinda BATTERY TECHNICIAN updated about pt status. Made aware that pt has been refusing IV tx & wasn't able to give Bactrim IV.
[2019-06-15] MEDS: methylPREDNISolone SOD SUCC 125 MG/2ML VIAL IV SCH ×3 (11:33→21:09)
[2019-06-15] MEDS: POTASSIUM CL. PREMIX PERIPHER. 50 ML IV SCH ×3 (13:30→14:29)
--- NOTE | 2019-06-15 16:37 | NUR ---
He left AMA on 06/09/19. He now readmitted to ICU with hypoxia and pneumonia.Patient lives locally with family. He was ambulatory and independent with adl's prior to admission. He has history of AIDS, methamphetamine abuse and dependency and anxiety disorder.Current dc plan is to return home. Addendum: 06/15/19 at 1637 by STEPHENIE SHI RN Amended: Links added.
[2019-06-15] MEDS ORDERED: AZITHROMYCIN 250 MG TABLET PO SCH (18:00)
--- NOTE | 2019-06-15 18:56 | NUR ---
HEAVY EQUIPMENT DIESEL MECHANIC CLOSING NOTES Pt resting comfortably on his bed, denies any SOB while on Hi flow. Pt refused to be bothered, wanted to sleep. SR/ST on telemonitor. Pt still refused to be connected to IVF, midline ordered, RN train operations supervisor & CN made aware. Safety precaution in place w/ bed in lowest & locked pos. Call light placed w/in reach. Isolation prec observed. Will endorse to PM RN for JHONATAN.
--- NOTE | 2019-06-15 19:55 | NUR ---
RN OPENING NOTES: PATIENT IN BED, ASLEEP, BUT EASILY AROUSABLE. ON HIGH FLOW O2 AT 50 LPM. NO RESPIRATORY DISTRESS AT THIS TIME. NO C/O PAIN. PATIENT REFUSING KCL IV. RISKS AND CONSEQUENCES EXPLAINED. MIDLINE TO BE REINSERTED ORDERED. SAFETY PRECAUTIONS IMPLEMENTED. BED LOCKED, ALARM ON, AND IN LOWEST POSITION. HOB ELEVATED AT ALL TIMES. CALL LIGHT PLACED WITHIN REACH. WILL CONT. TO MONITOR.
--- NOTE | 2019-06-15 20:30 | NUR ---
RN NOTE: PER RT, PATIENT REFUSED SPUTUM COLLECTION. RISKS AND CONSEQUENCES EXPLAINED.
[2019-06-15] MEDS: SULFAMETH/TRIMETH 800/160 MG 1 UDTAB TABLET PO SCH (21:09)
--- NOTE | 2019-06-15 22:25 | NUR ---
RN NOTE: PATIENT REFUSED MIDLINE INSERTION. RISKS AND CONSEQUENCES EXPLAINED. STILL REFUSED. PATIENT STATED, "TRY TOMORROW MORNING. I JUST WANT TO SLEEP." PATIENT ALSO REFUSED KCL IV. PAGED DR. MAGALLANES. WILL CONT. TO MONITOR FOR CHANGES. Addendum: 06/15/19 at 2231 by CHRIS MARTEL RN RECEIVED NEW ORDER FROM DR. MAGALLANES FOR KDUR 40 MEQ X 1. Addendum: 06/15/19 at 2257 by CHRIS MARTEL RN DR. MAGALLANES AWARE THAT PATIENT REFUSED MIDLINE AT THIS TIME.
[2019-06-15] MEDS ORDERED: POTASSIUM CHLORIDE 20 MEQ TAB.PRT.SR PO ONE (22:30)
[2019-06-16] VITALS (24 sets, daily range): BP systolic 93–160; BP diastolic 53–84
--- NOTE | 2019-06-16 04:28 | NUR ---
RN NOTE: PATIENT REFUSED BLOOD DRAW AT THIS TIME. RISKS AND CONSEQUENCES EXPLAINED, BUT PATIENT STILL REFUSED. CHARGE NURSE AWARE.
[2019-06-16] MEDS: SULFAMETH/TRIMETH 800/160 MG 1 UDTAB TABLET PO SCH ×2 (06:02→12:07)
[2019-06-16] MEDS: methylPREDNISolone SOD SUCC 125 MG/2ML VIAL IV SCH ×3 (06:03→21:00)
--- NOTE | 2019-06-16 07:15 | NUR ---
DIRECTOR FEDERAL INITIAL NOTES Rec'd pt asleep on bed, not in any distress, A/O x1, refused to be assess, wanted to sleep. On hi flow, not in any respiratory distress. SR on telemonitor. Has LH G20 SL, no IVF infusing as pt keeps on refusing. Safety precaution in place w/ bed in lowest & locked pos. Call light placed w/in reach. On airborne precaution. Will cont to monitor & attend pt needs.
--- NOTE | 2019-06-16 07:15 | NUR ---
RN CLOSING NOTES: PATIENT ASLEEP BUT EASILY AROUSABLE. NO RESPIRATORY DISTRESS. REMAINS ON HI FLOW O2, TOLERATING WELL. NO C/O PAIN DURING SHIFT. SAFETY PRECAUTIONS HAVE BEEN IMPLEMENTED. BED LOCKED, ALARM ON, AND IN LOWEST POSITION. INFORMED AM SHIFT NURSE REGARDING PATIENT'S REFUSAL OF MIDLINE INSERTION LAST NIGHT AND TO TRY THIS AM INSTEAD. DR. MAGALLANES AWARE. REMAINS ON AIRBORNE PRECAUTION. RT WAS UNABLE TO COLLECT SPUTUM. ENDORSED TO AM SHIFT NURSE FOR CONTINUITY OF CARE.
[2019-06-16] MEDS: PANTOPRAZOLE 40 MG TABLET.DR PO SCH (07:56)
[2019-06-16] MEDS: FLUCONAZOLE (100 MG) 100 MG TABLET PO SCH (08:23)
--- NOTE | 2019-06-16 08:35 | NUR ---
Pt seen by Dr. Dexter. updated about condition. Per , better to insert PICC line.
[2019-06-16] MEDS ORDERED: ETHAMBUTOL HCL (400 MG) 400 MG TABLET PO SCH (09:00)
[2019-06-16] MEDS ORDERED: RIFAMPIN 300 MG CAPSULE PO SCH (09:00)
--- NOTE | 2019-06-16 10:30 | NUR ---
Pt consented for PICC line insertion. Called pt sister Mirian & Zuleyka (pt's niece), updated about pt condition & POC.
--- NOTE | 2019-06-16 12:00 | NUR ---
s/p ILSA PICC line insertion c/o Amparo, per RN no need for CXR. Blood draw done for scheduled labs this AM.
[2019-06-16] MEDS: Potassium Chloride 20 MEQ in IV NS 0.9% 1,000 ML IV PRN (12:07)
[2019-06-16] MEDS ORDERED: PIPERACILLIN /TAZOBACTAM 3.375 G in IV D5W 50 ML IV ONE (13:00)
[2019-06-16 13:22] LABS: CALCIUM, SERUM 8.2 mg/dL (8.5-10.1); CREATININE 0.8 mg/dL (0.6-1.3); MAGNESIUM 1.9 mg/dL (1.8-2.4); PHOSPHORUS 2.9 mg/dL (2.5-4.9); POTASSIUM 4.8 mmol/L (3.5-5.1)
[2019-06-16] MEDS ORDERED: FEE PK DOSING 1 MIN EA MC ONE (13:49)
[2019-06-16 14:18] LABS: BASOPHILS % (AUTO) 0.3 % (0.0-2.0); EOSINOPHILS % (AUTO) 0.2 % (0.0-6.0); HEMATOCRIT 32 % (39-51); HEMOGLOBIN 10.3 g/dL (13.5-17.5); LYMPHOCYTES # (AUTO) 0.8 /CMM (0.8-4.8); LYMPHOCYTES % (AUTO) 15.6 % (20.0-44.0); MEAN CORPUSCULAR HGB CONC 32 g/dl (31.0-36.0); MEAN CORPUSCULAR VOLUME 87 fL (80-96); MONOCYTES # (AUTO) 0.2 /CMM (0.1-1.30); MONOCYTES % (AUTO) 3.6 % (2.0-12.0); NEUTROPHILS # (AUTO) 4.3 /CMM (1.8-8.9); NEUTROPHILS % (AUTO) 80.3 % (43.0-81.0); PLATELET COUNT (AUTO) 115 /CMM (150-450); WHITE BLOOD COUNT (AUTO) 5.4 K/uL (4.3-11.0)
--- NOTE | 2019-06-16 15:20 | NUR ---
Pt seen & examined by Lucinda RENEE, updated about pt condition. Carried out new orders. Faxed request form to [facility] re: request for pt's medical records.
[2019-06-16] MEDS: VANCOMYCIN 1.25 GM in IV D5W 250 ML IV SCH ×2 (15:26→21:31)
--- NOTE | 2019-06-16 17:15 | NUR ---
RT NOTE PT REFUSED SPUTUM INDUCTION, FOR AFB NURSE MADE AWARE WILL MONITOR CLOSELY
--- NOTE | 2019-06-16 18:54 | NUR ---
RN EMBEDDED CLOSING NOTES Pt resting on bed, not in any distress, A/O x1, sleeping. Tolerating hi flow, not in any respiratory distress but tachypneic. SR on telemonitor. Has ILSA PICC line w/ IVF infusing w/ no s/sx of infection/infiltration noted. Safety precaution kept in place w/ bed in lowest & locked pos. Call light placed w/in reach. On airborne precaution. Will endorse to PM RN for JHONATAN.
--- NOTE | 2019-06-16 19:15 | NUR ---
RN NOTE: PATIENT IN BED, ASLEEP, BUT EASILY AROUSABLE. REMAINS ON HI FLOW O2. NO C/O PAIN AT THIS TIME. ILSA PICC LINE INTACT, PATENT, AND FLUSHING WELL. SAFETY PRECAUTIONS IMPLEMENTED. BED LOCKED, ALARM ON, AND IN LOWEST POSITION. HOB ELEVATED. CALL LIGHT PLACED WITHIN REACH. WILL CONT. TO MONITOR.
[2019-06-16] MEDS: PIPERACILLIN /TAZOBACTAM 3.375 G in IV D5W 100 ML IV SCH (19:56)
[2019-06-16] MEDS: SULFAMETHOXAZOLE/TRIMETHOPRIM 20 ML in IV D5W 500 ML IV SCH ×2 (23:43→23:56)
--- NOTE | 2019-06-16 23:56 | NUR ---
RN NOTE: PATIENT REFUSED IV BACTRIM. PATIENT STARTED SCREAMING, "GO AWAY! LEAVE ME ALONE." PATIENT ALSO STATED, "I DON'T WANT ANY ANTIBIOTICS." RISKS AND CONSEQUENCES EXPLAINED, PATIENT STILL REFUSED. CHARGE NURSE MADE AWARE. Addendum: 06/17/19 at 0734 by CHRIS MARTEL RN 0000: BACTIM IV MEDICATION WASTED PER PATIENT REFUSED, WITNESSED BY ANOTHER PAWEL JONES. PATIENT ALSO REFUSED TO GET HIS TEMP CHECKED AT THIS TIME.
[2019-06-17] VITALS (23 sets, daily range): BP systolic 100–138; BP diastolic 54–86
[2019-06-17] MEDS: Potassium Chloride 20 MEQ in IV NS 0.9% 1,000 ML IV PRN ×2 (01:46→16:12)
--- NOTE | 2019-06-17 02:40 | NUR ---
RN NOTE: PATIENT'S O2 SAT DESATURATING AT 85-88%. RT NOTIFIED. RT WENT TO THE ROOM. PATIENT REFUSING O2. RISKS AND CONSEQUENCES EXPLAINED TO PATIENT, STILL REFUSED. PATIENT STATED, "I JUST WANT TO SLEEP."
--- NOTE | 2019-06-17 02:57 | NUR ---
Pt refuses respiratory intervention, pt refuses to talk speak, pt refuses to listen. Primary RN, and rn discharge aware.
[2019-06-17 04:56] LABS: CALCIUM, SERUM 8.3 mg/dL (8.5-10.1); CREATININE 0.6 mg/dL (0.6-1.3); POTASSIUM 3.8 mmol/L (3.5-5.1)
[2019-06-17] MEDS: methylPREDNISolone SOD SUCC 125 MG/2ML VIAL IV SCH ×3 (06:07→20:58)
[2019-06-17] MEDS: PIPERACILLIN /TAZOBACTAM 3.375 G in IV D5W 100 ML IV SCH ×3 (06:07→20:49)
[2019-06-17] MEDS: VANCOMYCIN 1.25 GM in IV D5W 250 ML IV SCH ×3 (06:07→22:05)
--- NOTE | 2019-06-17 07:00 | NUR ---
RN CLOSING NOTES: PATIENT AWAKE AND VERBALLY RESPONSIVE. PATIENT AGREED TO TAKE IV ANTIBIOTICS ZOSYN AND VANCO. PATIENT IN NO ACUTE DISTRESS. NEED TO F/U MED RECORDS FROM [facility]. ENDORSED TO AM SHIFT NURSE FOR CONTINUITY OF CARE.
--- NOTE | 2019-06-17 07:05 | NUR ---
RN NOTE: RECIVIED PT ON BED, ALERT/ ORIENTED x1-2 ,ON HI FLOW O2. O2 SAT WNL, NO DISTRESS NOTED, ILSA PICC LINE INTACT, PATENT, AND FLUSHING WELL. SR UP x3, CALL LIGHT WITHIN EASY SEARCH, SAFETY PRECAUTIONS IMPLEMENTED. BED LOCKED, ALARM ON, AND IN LOWEST POSITION. HOB ELEVATED. CALL LIGHT PLACED WITHIN REACH. WILL CONT. TO MONITOR.
[2019-06-17] MEDS: SULFAMETHOXAZOLE/TRIMETHOPRIM 20 ML in IV D5W 500 ML IV SCH ×2 (08:29→16:13)
[2019-06-17] MEDS: PANTOPRAZOLE 40 MG TABLET.DR PO SCH (08:29)
[2019-06-17] MEDS: FLUCONAZOLE (100 MG) 100 MG TABLET PO SCH (08:30)
--- NOTE | 2019-06-17 10:50 | NUR ---
pt. is desaturating, refuse RT intervention. Addendum: 06/17/19 at 1050 by GEORGIA MATIAS RT Amended: Links added.
--- NOTE | 2019-06-17 10:53 | NUR ---
RN NOTES O2 SAT IS IN LOW 80'S , PT IS VERY AGITATED AND SCREAMING , YELLING AND SAYING LEAVE ME ALONE, DOES NOT WANT TO BE TOUCHED . DR. VÁSQUEZ NOTED , CONTINUE TO MONITOR
--- NOTE | 2019-06-17 15:34 | NUR ---
pt.wants to use non rebreather. refused high flow nasal cannula. charge nurse notified. Addendum: 06/17/19 at 1535 by GEORGIA MATIAS RT Amended: Links added.
--- NOTE | 2019-06-17 16:00 | NUR ---
RN NOTES PT REFUSED TO HAVE HIGH FLOW O2 ON , PT WANTS TO BE ON NON REBREATHING MASK, CONTINUE TO MONITOR .
--- NOTE | 2019-06-17 18:00 | NUR ---
RN NOTES PT STABLE AT THIS TIME, O2 SAT WNL , SR UP x3, CALL LIGHT WITHIN EASY REACH, NO DISTRESS NOTED, WILL ENDORSE TO MENU PLANNER NURSE FOR CONTINUITY OF CARE .
--- NOTE | 2019-06-17 19:30 | NUR ---
Pt A&Ox4, grunting, ill appearance, yells out demands to the nurses, c/o sob, oxygen saturation 95% w/ Weg-agyxljxvl-[id number] 15LPM. Pt consumed 100 % dinner, drinks his own sodas. Pt w RUP picc line patent and infusing ordered IV fluid. Pt used bedside commode to defecated dark brown formed stool 400ml independently. Pt used urinal straw, clear urine 200 ml collected. Comfort & safety checked, verbal assurance rendered.
--- NOTE | 2019-06-17 20:20 | NUR ---
Pt laying quietly, breathing even, speaking in full sentence, clear speech, denies pain at this time. Pt w short temper, but reasonable when explain things ahead of time. comfort & safety maintained in pt.
--- NOTE | 2019-06-17 23:00 | NUR ---
REPORTS RECEIVED FROM PAWEL SKY FOR [facility] OF CARE. PATIENT IS RESTING IN BED. WITH NON REBREATHER MAS AT 15L/MIN. V/S TAKEN AND RECORDED. PATIENT IS AWAKE, A/O X4. NOT IN RESPIRATORY DISTRESS. HOB ELEVATED. URINAL AND BEDSIDE COMMODE AT THE BEDSIDE. ON DROPLET ISOLATION, SIGN ON THE DOOR PLACED AND CART AVAILABLE. AIRLINE FLIGHT ATTENDANT MADE AWARE OF THE ISOLATION. VITALS STABLE. CALL LIGHT WITHIN REACH. BED IN LOWEST AND LOCKED POSITION.
--- NOTE | 2019-06-17 23:00 | NUR ---
Patient stable, taken up to tele floor, transported by RN & STAMP MOUNTER.
[2019-06-18] VITALS (7 sets, daily range): BP systolic 119–131; BP diastolic 70–81
--- NOTE | 2019-06-18 | NUR ---
PATIENT'S RIGHT UPPER ARM PICC LINE WHITE PORT IS CLOGGED. THE OTHER 2 LUMENS ARE PATENT.
[2019-06-18] MEDS: SULFAMETHOXAZOLE/TRIMETHOPRIM 20 ML in IV D5W 500 ML IV SCH ×4 (00:27→23:07)
[2019-06-18] MEDS: PIPERACILLIN /TAZOBACTAM 3.375 G in IV D5W 100 ML IV SCH ×4 (04:11→19:59)
[2019-06-18] MEDS: Potassium Chloride 20 MEQ in IV NS 0.9% 1,000 ML IV PRN (04:12)
[2019-06-18] MEDS: methylPREDNISolone SOD SUCC 125 MG/2ML VIAL IV SCH ×3 (04:12→20:57)
--- NOTE | 2019-06-18 04:36 | NUR ---
BILLIARD PARLOR MANAGER REPORTED THAT THE PATIENT SAID THAT HE SAW FEW COCKROCHES CRAWLING IN HIS BED, CAITY PADILLA CHECKED THE BED AND THE SURROUNDINGS BUT NOTHING FOUND. CHARGE NURSE MOOK MADE AWARE. BILLIARD PARLOR MANAGER TOOK THE SECURITIES AND REAL ESTATE DIRECTOR AND CIGARETTE VAPER, AND GAVE TO THE CHARGE NURSE WITH THE PATIENT'S CASH ACCOUNTANT IT. CHECKED THE BED OF THE PATIENT FOR BUGS, NOTHING FOUND.
[2019-06-18] MEDS: VANCOMYCIN 1.25 GM in IV D5W 250 ML IV SCH ×4 (06:00→21:00)
--- NOTE | 2019-06-18 06:03 | NUR ---
MS RN CLOSING NOTES: PATIENT IS RESTING IN BED, A/O X4. STILL WITH NON REBREATHER MASK AT 15L/MIN. HOB ELEVATED AT ALL TIMES FOR COMFORT. URINAL AND COMMODE AT THE BEDSIDE. NO COMPLAIN OF PAIN DURING SHIFT. DROPLET ISOLATION OBSERVED AT ALL TIMES. CALL LIGHT WITHIN REACH. BED IN LOWEST AND LOCKED POSITION. CAITY PADILLA REPORTED THAT PATIENT IS UPSET RE: COCKROCHES IN BED, AND PATIENT WANTS TO TALK TO THE [employer]ES FOOTBALLER, CHARGE NURSE MOOK MADE AWARE.
--- NOTE | 2019-06-18 06:32 | NUR ---
PATIENT COMPLAINED OF DIFFICULTY OF BREATHING, PATIENT WAS ON THE PHONE TALKING TO HIS FAMILY MEMBER , VERY UPSET. CALLED THE RT FOR TREATMENT. INFORMED THE PATIENT.
--- NOTE | 2019-06-18 07:17 | NUR ---
PER CHARGE NURSE MOOK, HOUSEKEEPING ALREADY INFORMED THE PEST CONTROL.
--- NOTE | 2019-06-18 07:25 | NUR ---
INFORMED DR MAGALLANES RE: PATIENT REFUSED THE 0600 VANCOMYCIN.
[2019-06-18] MEDS: ALBUTEROL FS 2.5 MG/3 ML VIAL.NEB NEB PRN (07:52)
--- NOTE | 2019-06-18 08:14 | NUR ---
Rounds to patient, talking with curtain closed. Would like more food and says it (breathing treatment) is not working. Will give dietary tray and follow up with weight and intake/output. Yony Barnes RN
[2019-06-18] MEDS: PANTOPRAZOLE 40 MG TABLET.DR PO SCH (08:35)
[2019-06-18] MEDS: FLUCONAZOLE (100 MG) 100 MG TABLET PO SCH (08:35)
--- NOTE | 2019-06-18 19:00 | NUR ---
RN medsurg opening notes Received Pt from morning nurse. Pt is alert and orinetedX4. Pt is resting in bed comfortably. Respiration is normal in mask 15 L. No SOB. No S/S of distress noted. Pt refused assessment. Made aware risks and benefits. ILSA Picc line is clean, intact and no redness. airborne precautions is maintained. Bed at low position, brakes locked, side rails upX3 and call light is within reach. Will continue to monitor.
--- NOTE | 2019-06-18 20:00 | NUR ---
RN medsurg notes Pt refused VS at 1999. Pt also refused meds Zosyn at 1999. Made aware risks and benefits. Pt keep refusing. Charge nurse is aware and informed.
--- NOTE | 2019-06-18 21:30 | NUR ---
RN medsurg notes Find out and noticed window in Pt's room was open. Staff Closed the window and locked it. Pt stated "I will open the window again!" Made aware that is our hospital protocol and policy must closed and locked the window all the time. Pt keep screaming and yelling. Security was called and went to the room to check the window and locked it. Pt keep screaming and yelling. Charge nurse is aware and informed. Will continue to monitor.
--- NOTE | 2019-06-18 23:48 | NUR ---
PAWEL medsur notes Pt refused weekly skin assessment and pictures. Made aware risks and benefits. Pt keep refusing. Will continue to monitor.
[2019-06-19] MEDS: PIPERACILLIN /TAZOBACTAM 3.375 G in IV D5W 100 ML IV SCH ×4 (03:57→20:19)
[2019-06-19] MEDS: methylPREDNISolone SOD SUCC 125 MG/2ML VIAL IV SCH ×4 (04:20→21:00)
[2019-06-19] MEDS: VANCOMYCIN 1.25 GM in IV D5W 250 ML IV SCH (05:07)
--- NOTE | 2019-06-19 06:57 | NUR ---
RN medsurg closing notes Pt is resting in bed comfortably. Pt is alert and orientedX4, easily agitated and anxious. Respiration is normal in non rebreather mask. No SOB. No S/S of distress noted. ILSA PICC line is clean, intact, patent and infusing well. VS is stable. Afebrile. Routine meds were given as ordered. Kept Pt clean, dry and comfortable. All needs met and attended. Airborne precautions is maintained. Safety precautions is maintained. Bed at low position, brakes locked, side rails upX3 and call light is within reach. Will endorse to morning nurse for JHONATAN.
[2019-06-19 07:41] LABS: BASOPHILS % (AUTO) 0.4 % (0.0-2.0); EOSINOPHILS % (AUTO) 0.1 % (0.0-6.0); HEMATOCRIT 33 % (39-51); HEMOGLOBIN 10.6 g/dL (13.5-17.5); LYMPHOCYTES # (AUTO) 0.4 /CMM (0.8-4.8); LYMPHOCYTES % (AUTO) 25.8 % (20.0-44.0); MEAN CORPUSCULAR HGB CONC 32 g/dl (31.0-36.0); MEAN CORPUSCULAR VOLUME 87 fL (80-96); MONOCYTES # (AUTO) 0.1 /CMM (0.1-1.30); NEUTROPHILS # (AUTO) 1.1 /CMM (1.8-8.9); NEUTROPHILS % (AUTO) 69.7 % (43.0-81.0); PLATELET COUNT (AUTO) 78 /CMM (150-450); RED BLOOD CELL COUNT(AUTO) 3.83 MIL/uL (4.5-6.0)
--- NOTE | 2019-06-19 07:57 | NUR ---
MS RN NOTES PATIENT RECEIVED RESTING INSIDE ROOM. AWAKE, A/O X 4. NO CHANGES IN LOC NOTED. PATIENT ON O2 AT 15L/MIN VIA NRM, REPORTS SOB WHEN HE REMOVES MASK. DR MARIN PRESENT AT UNIT AND AWARE. MAINTAINED ISOLATION PRECAUTIONS. WILL CONTINUE TO MONITOR. BED LOCKED AND IN LOW POSITION. BILATERAL UPPER SIDE RAILS UP AND LOCKED. CALL LIGHT WITHIN EASY REACH
[2019-06-19 08:00] VITALS: BP 142/80
[2019-06-19] MEDS: FLUCONAZOLE (100 MG) 100 MG TABLET PO SCH (08:35)
[2019-06-19] MEDS: PANTOPRAZOLE 40 MG TABLET.DR PO SCH (08:39)
[2019-06-19 09:19] LABS: WHITE BLOOD COUNT (AUTO) 1.6 K/uL (4.3-11.0)
[2019-06-19 09:29] LABS: CALCIUM, SERUM 7.8 mg/dL (8.5-10.1); CREATININE 0.9 mg/dL (0.6-1.3); POTASSIUM 3.8 mmol/L (3.5-5.1)
[2019-06-19] MEDS: SULFAMETHOXAZOLE/TRIMETHOPRIM 20 ML in IV D5W 500 ML IV SCH ×3 (10:23→23:05)
--- NOTE | 2019-06-19 11:20 | NUR ---
MS RN NOTES WITH ORDER FROM DR MARIN TO ATTEMPT TO WEAN OFF OXYGEN, NOTED AND CARRIED OUT. PATIENT MADE AWARE AND VERBALIZED UNDERSTANDING. OFFERED FACE MASK AND PATIENT AGREED BUT REFUSED TO USE FACE MASK SOON HE TRIED IT. VERBALIZED, "IT DOESNT WORK". PLACED TO 10L/MIN VIA FACE MASK BUT PATIENT INSISTING THAT IT DOESNT WORK. TESTED O2 OUTPUT ON MASK AND NOTED TO BE WORKING PROPERLY BUT PATIENT REFUSES TO USE FACE MASK, VERBALIZED HE WOULD ONLY USE EITHER NASAL CANULA OR NON-REBREATHER MASK. PLACED ON NC AT 5L/MIN, NOTED O2 SAT TO DROP TO 78/79%. PATIENT PLACED BACK TO NON-REBREATHER MASK. DR MARIN MADE AWARE, NO NEW ORDERS AT THIS TIME. WILL CONTINUE TO MONITOR
[2019-06-19 12:30] LABS: BAND % (MANUAL) 1 % (0.0-5.0); LYMPHOCYTES % (MANUAL) 9 % (16-48); NEUTROPHILS % (MANUAL) 90 (42-76)
--- NOTE | 2019-06-19 14:15 | NUR ---
MS RN NOTES VANCO TROUGH 9. PHARMACY MADE AWARE, VERBALIZED THEY WILL CHANGE DOSE TROUGH LEVEL IS LOW. AWAITING NEW ORDERS. WILL CONTINUE TO MONITOR
--- NOTE | 2019-06-19 15:30 | NUR ---
MS RN NOTES WITH NEW ORDER FOR VANCOMYCIN DOSE CHANGE, AWAITING FOR MEDICATION TO BE DELIVERED, PHARMACY AWARE. WILL CONTINUE TO MONITOR
[2019-06-19 16:00] VITALS: BP 107/54
[2019-06-19] MEDS: VANCOMYCIN 1.5 GM in IV D5W 500 ML IV SCH ×2 (16:51→22:45)
--- NOTE | 2019-06-19 18:59 | NUR ---
MS RN NOTES PATIENT ALERT AND ORIENTED X 4. PATIENT IN BED RESTING. ON NON-REBREATHER MASK 15L. PATIENT PRESENTS GRUNTING, DEEP, AND SHALLOWS BREATHS. CONTINUE TO COMPLAIN OF SOB WHEN NOT USING NON-REBREATHER MASKS. DR MARIN AWARE, NO NEW ORDERS AT THIS TIME. MAINTAIN ISOLATION PRECAUTIONS. PATIENT KEPT CLEAN, DRY AND SAFETY PRECAUTIONS INITIATED WITH BED IN THE LOWEST POSITION, BED ALARM ON, BED LOCKED, BILATERAL SIDE-RAILS UP, AND CALL LIGHT WITH IN EASY REACH. WILL ENDORSE JHONATAN TO ONCOMING NURSE.
--- NOTE | 2019-06-19 19:30 | NUR ---
MS RN NOTES PATIENT REFUSED VITALS
--- NOTE | 2019-06-19 19:45 | NUR ---
MS RN NOTES PATIENT IN BED, AWAKE, WITH NON-REBREATHER MASK ON 15L. PATIENT DISPLAYS GRUNTING WHILE ON MASK. PATIENT ASKED TO BE LEFT ALONE. IV ON ILSA PICC LINE 3 LUMEN. SAFETY PRECAUTIONS IN PLACE. BED IN LOWEST POSITION, LOCKED, AND CALL LIGHT KEPT WITHIN REACH. WILL CONTINUE TO MONITOR.
--- NOTE | 2019-06-20 | NUR ---
MS RN NOTES PATIENT REFUSED MEDICATIONS 1999 ZOSYN, 2100 SOLUMEDROL, 2300 VANCO, AND 0000 BACTRIM. EDUCATED PATIENT ABOUT THE REASON FOR THE MEDICATIONS. PATIENT CONTINUE TO REFUSED AND STATED HE WOULD LIKE TO BE LEFT ALONE. CHARGE NURSE AWARE AND DOC AWARE. WILL CONTINUE TO MONITOR.
[2019-06-20] MEDS: Potassium Chloride 20 MEQ in IV NS 0.9% 1,000 ML IV PRN (03:21)
[2019-06-20] MEDS: PIPERACILLIN /TAZOBACTAM 3.375 G in IV D5W 100 ML IV SCH ×3 (03:57→22:25)
[2019-06-20] MEDS: methylPREDNISolone SOD SUCC 125 MG/2ML VIAL IV SCH ×3 (04:56→21:32)
[2019-06-20] MEDS: VANCOMYCIN 1.5 GM in IV D5W 500 ML IV SCH ×3 (07:00→16:10)
[2019-06-20 07:19] LABS: CALCIUM, SERUM 7.9 mg/dL (8.5-10.1); CREATININE 0.8 mg/dL (0.6-1.3); POTASSIUM 4.1 mmol/L (3.5-5.1)
--- NOTE | 2019-06-20 07:19 | NUR ---
MS RN NOTES PATIENT IN BED, ASLEEP EASILY AROUSED, ALERT AND ORIENTED X 4. BREATHING EVEN AND UNLABORED ON ROOM AIR. SHOWS NO SIGNS OF ACUTE RESPIRATORY DISTRESS. NO ACUTE PAIN. IV ON RIGHT AC 18G RUNNING D5 1/2 NS AT 125ML/HR. CLEAN DRY AND INTACT. SHOWS NO INFILTRATION, NO REDNESS. SAFETY PRECAUTIONS IN PLACE. ALL DUE MEDICATIONS GIVEN. BED IN LOWEST POSITION, LOCKED, AND CALL LIGHT KEPT WITHIN REACH. WILL ENDORSE TO ONCOMING NURSE. Addendum: 06/20/19 at 0720 by KVNG ELLIS RN WRONG PATIENT.
--- NOTE | 2019-06-20 07:20 | NUR ---
MS RN NOTES PATIENT IN BED, AWAKE, WITH NON-REBREATHER MASK ON 15L. PATIENT DISPLAYS GRUNTING WHILE ON MASK. PATIENT ASKED TO BE LEFT ALONE. IV ON ILSA PICC LINE 3 LUMEN. SAFETY PRECAUTIONS IN PLACE. ALL DUE MEDICATIONS GIVEN. BED IN LOWEST POSITION, LOCKED, AND CALL LIGHT KEPT WITHIN REACH. WILL ENDORSE TO ONCOMING NURSE.
--- NOTE | 2019-06-20 07:28 | NUR ---
MS RN OPENING NOTE RECEIVED PATIENT IN BED RESTING COMFORTABLY. PATIENT IN NO ACUTE DISTRESS. NO SOB NOTED. PATIENT BREATHING IS EVEN AND UNLABORED. PATIENT BREATHING ON NON REBREATHER MASK ON 15L. SAFETY PRECAUTIONS IN PLACE. PATIENT BED IS LOCKED AND IN LOWEST POSITION. CALL LIGHT WITHIN REACH. WILL CONTINUE TO MONITOR.
[2019-06-20] MEDS: PANTOPRAZOLE 40 MG TABLET.DR PO SCH (07:30)
--- NOTE | 2019-06-20 08:16 | NUR ---
MS RN NOTE PATIENT REFUSING VANCOMYCIN 0700 DOSE. EDUCATED RISKS VS BENEFITS. PATIENT CONTINUES TO REFUSE.
--- NOTE | 2019-06-20 08:31 | NUR ---
MS RN NOTE PATIENT REFUSING PANTOPRAZOLE 0730. EDUCATED RISKS VS BENEFITS. PATIENT CONTINUED TO REFUSE.
--- NOTE | 2019-06-20 08:40 | NUR ---
MS RN NOTE PATIENT FEELING SHORT OF BREATH. PATIENT SATURATING 96% SPO2 ON 15L NONREBREATHER. ORDERED FOR BREATHING TREATMENT. RT TO COME AND SEE PATIENT.
--- NOTE | 2019-06-20 08:46 | NUR ---
MS RN NOTE PATIENT REFUSING TO HAVE ABGS FROM ARTERIAL ACCESS, ONLY ALLOWS FOR VENOUS ACCESS. PATIENT GETTING AGITATED AND REFUSING ARTERIAL ACCESS.
[2019-06-20] MEDS: SULFAMETHOXAZOLE/TRIMETHOPRIM 20 ML in IV D5W 500 ML IV SCH ×2 (08:56→18:20)
[2019-06-20] MEDS: FLUCONAZOLE (100 MG) 100 MG TABLET PO SCH (08:59)
[2019-06-20 09:02] LABS: ABG BASE EXCESS 3.1 mmol/L; ABG OXYGEN SATURATION 93.6 % (92.0-98.5); ABG PH 7.483 (7.350-7.450); ABG PO2 64.8 mmHg (75.0-100.0); COHb 0.6 % (0.5-1.5); MetHb 0.2 % (0.0-1.5); O2Hb 92.9 % (94.0-97.0); SITE, ABG Other; VENT MODE, BG NON REBREATHER
--- NOTE | 2019-06-20 09:04 | NUR ---
RT Pt was refusing ABG and only allowing to draw blood through PICC line, sample was ran as VBG. Salena charge nurse notified and aware.
[2019-06-20] MEDS: ALBUTEROL FS 2.5 MG/3 ML VIAL.NEB NEB PRN (09:31)
--- NOTE | 2019-06-20 09:40 | NUR ---
MS RN NOTE PATIENT BREATHING IS EVEN AND UNLABORED. TOLERATED BREATHING TREATMENT WELL. WILL CONTINUE TO MONITOR.
[2019-06-20] MEDS ORDERED: ALPRAZOLAM 1 MG TABLET PO ONE (15:00)
--- NOTE | 2019-06-20 16:30 | NUR ---
MS RN NOTE WHEN ATTEMPTING TO GRAB VITALS FROM RN AND GRAIN AND YEAST PLANTS SUPERVISOR, PATIENT REFUSES. PATIENT GETS IRRITABLE AND STATES "LEAVE ME ALONE". EDUCATED IMPORTANCE OF VITALS AND PATIENT CONTINUED TO REFUSE.
--- NOTE | 2019-06-20 18:20 | NUR ---
MS RN NOTE SPOKE WITH LUDIN PETERSON, PER LUDIN TITRATE DOWN OXYGEN ON NON REBREATHER PATIENT TOLERATES. PATIENT NOW ON 10L OXYGEN NONREBREATHER SATURATING AT AT 94% SPO2.
--- NOTE | 2019-06-20 18:50 | NUR ---
MS RN CLOSING NOTE PATIENT IN BED RESTING COMFORTABLY. PATIENT IN NO ACUTE DISTRESS. NO SOB NOTED. PATIENT BREATHING IS EVEN AND UNLABORED. PATIENT CURRENTLY ON NONREBREATHER 10L OXYGEN SATURATING AT 94-95% SPO2. WILL ENDORSE TO GRADE TAMPER TO MONITOR AND CONTINUE TO TITRATE DOWN MUCH PATIENT TOLERATES. PATIENT KEPT CLEAN AND DRY THROUGHOUT SHIFT. PATIENT IN NO PAIN AT THIS TIME. PATIENT BED IS LOCKED AND IN LOWEST POSITION. SAFETY PRECAUTIONS IN PLACE. CALL LIGHT WITHIN REACH. WILL ENDORSE CARE TO PM SHIFT FOR JHONATAN. Addendum: 06/20/19 at 1932 by CHETNA KENDRICK RN MS RN CLOSING NOTE PATIENT IN BED RESTING COMFORTABLY. PATIENT MAINTAINED ON ISOLATION PRECAUTIONS. PATIENT IN NO ACUTE DISTRESS. NO SOB NOTED. PATIENT BREATHING IS EVEN AND UNLABORED. PATIENT CURRENTLY ON NONREBREATHER 10L OXYGEN SATURATING AT 94-95% SPO2. WILL ENDORSE TO GRADE TAMPER TO MONITOR AND CONTINUE TO TITRATE DOWN MUCH PATIENT TOLERATES. PATIENT KEPT CLEAN AND DRY THROUGHOUT SHIFT. PATIENT IN NO PAIN AT THIS TIME. PATIENT BED IS LOCKED AND IN LOWEST POSITION. SAFETY PRECAUTIONS IN PLACE. CALL LIGHT WITHIN REACH. WILL ENDORSE CARE TO PM SHIFT FOR JHONATAN.
--- NOTE | 2019-06-20 19:20 | NUR ---
MS RN OPENING NOTES PATIENT OXYGEN SATURATION AT 88-90% WITH NONREBREATHER MASK AT 10L. TITRATED OXYGEN BACK TO 12L AND STATING AT 92-94%. NO SOB NOTED AND IS BREATHING EVEN & UNLABORED. A/OX4. PICC LINE PRESENT ON RIGHT UPPER ARM WITH BACTRIM RUNNING AT 260 CC/HR. BED LOCKED, SIDE RAILS X2, CALL LIGHT WITHIN REACH. WILL CONTINUE TO MONITOR.
[2019-06-20 20:00] VITALS: BP 114/71
--- NOTE | 2019-06-20 20:00 | NUR ---
MS RN NOTES UNABLE TO HANG ZOSYN DUE AT 1999. BACTRIM STILL RUNNING AT 260CC/HR.
[2019-06-20 20:38] VITALS: BP 114/71
--- NOTE | 2019-06-20 22:25 | NUR ---
MS RN NOTES IV ANTIBIOTIC BACTRIM COMPLETED. ZOSYN STARTED AT 25CC/HR
--- NOTE | 2019-06-20 22:30 | NUR ---
MS RN NOTES TITRATED OXYGEN TO 10L, STATING AT 93-95%. WILL CONTINUE TO MONITOR.
[2019-06-21] MEDS: VANCOMYCIN 1.5 GM in IV D5W 500 ML IV SCH ×3 (03:06→20:41)
--- NOTE | 2019-06-21 03:06 | NUR ---
MS RN NOTES UNABLE TO SCAN IVPB VANCO 1.5GM. PER [facility], OK TO USE MANUAL BARCODE TO SCAN MEDICATION ON EMAR.
[2019-06-21] MEDS ORDERED: SULFAMETHOXAZOLE/TRIMETHOPRIM 20 ML in IV D5W 500 ML IV SCH (05:00)
[2019-06-21] MEDS: methylPREDNISolone SOD SUCC 125 MG/2ML VIAL IV SCH ×3 (05:27→21:26)
[2019-06-21] MEDS: PIPERACILLIN /TAZOBACTAM 3.375 G in IV D5W 100 ML IV SCH ×3 (05:27→22:51)
--- NOTE | 2019-06-21 06:00 | NUR ---
MS RN NOTES UNABLE TO WITHDRAW BLOOD FROM RIGHT UPPER PICC LINE. PATIENT REFUSED BASKET PERSON TO DRAW BLOOD ON ARM.
--- NOTE | 2019-06-21 07:45 | NUR ---
MS RN CLOSING NOTES PATIENT SLEEPING IN BED, EASY TO AWAKEN. ON 13L NON-REBREATHER MASK. OXYGEN SATURATION 92-95%. NO S/S OF ACUTE RESPIRATORY DISTRESS AND NO COMPLAINTS OF PAIN AT THIS TIME. PICC LINE PRESENT ON RIGHT UPPER ARM, WHITE AND BLOOD PORT CURRENTLY CLOGGED. BED LOCKED, ALARM ON, SIDE RAILS X2, CALL LIGHT WITHIN REACH. WILL ENDORSE TO DAY SHIFT NURSE TO FOLLOW PLAN OF CARE.
[2019-06-21 08:00] VITALS: BP 111/72
--- NOTE | 2019-06-21 08:30 | NUR ---
patient refusing titrate O2 level as ordered. Education provided , patient not listening and getting aggressive
[2019-06-21] MEDS: PANTOPRAZOLE 40 MG TABLET.DR PO SCH (09:47)
[2019-06-21] MEDS: SULFAMETHOXAZOLE/TRIMETHOPRIM 20 ML in IV D5W 500 ML IV SCH ×2 (09:47→18:00)
[2019-06-21] MEDS: FLUCONAZOLE (100 MG) 100 MG TABLET PO SCH (09:47)
[2019-06-21] MEDS: ALPRAZOLAM 1 MG TABLET PO PRN (13:11)
[2019-06-21 16:00] VITALS: BP 117/82
[2019-06-21 16:35] LABS: BASOPHILS % (AUTO) 0.2 % (0.0-2.0); EOSINOPHILS % (AUTO) 0.1 % (0.0-6.0); HEMATOCRIT 36 % (39-51); HEMOGLOBIN 11.8 g/dL (13.5-17.5); LYMPHOCYTES # (AUTO) 0.5 /CMM (0.8-4.8); MEAN CORPUSCULAR HGB CONC 33 g/dl (31.0-36.0); MEAN CORPUSCULAR VOLUME 85 fL (80-96); MONOCYTES # (AUTO) 0.1 /CMM (0.1-1.30); MONOCYTES % (AUTO) 4.8 % (2.0-12.0); NEUTROPHILS # (AUTO) 1.4 /CMM (1.8-8.9); NEUTROPHILS % (AUTO) 68.9 % (43.0-81.0); PLATELET COUNT (AUTO) 89 /CMM (150-450); RED BLOOD CELL COUNT(AUTO) 4.29 MIL/uL (4.5-6.0); WHITE BLOOD COUNT (AUTO) 2.1 K/uL (4.3-11.0)
[2019-06-21 16:57] LABS: BAND % (MANUAL) 3 % (0.0-5.0); LYMPHOCYTES % (MANUAL) 26 % (16-48); MONOCYTES % (MANUAL) 5 % (0-11.0); NEUTROPHILS % (MANUAL) 66 (42-76)
[2019-06-21 17:07] LABS: CALCIUM, SERUM 8.4 mg/dL (8.5-10.1); CREATININE 0.8 mg/dL (0.6-1.3); MAGNESIUM 1.9 mg/dL (1.8-2.4); POTASSIUM 4.8 mmol/L (3.5-5.1)
--- NOTE | 2019-06-21 17:10 | NUR ---
Tylenol for jocelyne pain administrated
--- NOTE | 2019-06-21 18:10 | NUR ---
Called pharmacy and requested Bactrim IV scheduled for 1800. Per pharmacy it will be delivered soon.
[2019-06-21] MEDS: ACETAMINOPHEN 325 MG TABLET PO PRN (19:25)
--- NOTE | 2019-06-21 19:25 | NUR ---
patient resting in bed, remains on non-rebreather mask 13l , refusing to ayon on simple mask and decrease O2 flow. Patient noncompliant. All needs attended , scheduled meds administrated. Patient kept clean and dry. ILSA PICC line intact and flashing well. Will endorse to next shift for JHONATAN.
--- NOTE | 2019-06-21 19:45 | NUR ---
MS RN OPENING NOTES RECEIVED PATIENT FROM MORNING SHIFT, ALERT AND ORIENTED X 3 ABLE TO FOLLOW DIRECTIONS. BREATHING REGULAR AND UNLABORED ON OXYGEN AT 13L/MIN VIA NON-REBREATHER MASK. RIGHT UPPER ARM PICC LINE INTACT AND PATENT, INFUSING WELL WITH NO BLEEDING OR S/S OF INFECTION NOTED. REFUSED BODY ASSESSMENT, RISK AND BENEFITS EXPLAINED. NO COMPLAINTS OF PAIN/DISCOMFORT REPORTED AT THIS TIME. BED LOW AND LOCKED ON SEMI FOWLERS POSITION. CALL LIGHT IN REACH. WILL CONTINUE TO MONITOR.
[2019-06-21 20:39] VITALS: BP 90/65
[2019-06-21 22:00] VITALS: BP 90/65
[2019-06-22] MEDS: SULFAMETHOXAZOLE/TRIMETHOPRIM 20 ML in IV D5W 500 ML IV SCH ×4 (01:39→23:04)
[2019-06-22] MEDS: VANCOMYCIN 1.5 GM in IV D5W 500 ML IV SCH ×2 (03:42→12:50)
[2019-06-22] MEDS: methylPREDNISolone SOD SUCC 125 MG/2ML VIAL IV SCH ×3 (05:09→21:46)
[2019-06-22] MEDS: PIPERACILLIN /TAZOBACTAM 3.375 G in IV D5W 100 ML IV SCH ×3 (05:43→20:32)
[2019-06-22] MEDS: ALPRAZOLAM 1 MG TABLET PO PRN ×2 (05:53→15:08)
--- NOTE | 2019-06-22 06:00 | NUR ---
MS RN NOTES NOTED WITH ANXIETY AND AGITATION, KICKING HIS BED AND SCREAMING. XANAX 1MG GIVEN BY MOUTH. NON-PHARMACOLOGICAL INTERVENTIONS PROVIDED. WILL CONTINUE TO MONITOR.
--- NOTE | 2019-06-22 06:40 | NUR ---
MS RN CLOSING NOTES PATIENT IN BED ALERT AND ORIENTED X 3. ABLE TO FOLLOW DIRECTIONS. BREATHING REGULAR AND UNLABORED ON OXYGEN AT 13L/MIN VIA NON-REBREATHER MASK. RIGHT UPPER ARM PICC LINE PATENT AND INFUSING WELL. NO COMPLAINTS OF PAIN/DISCOMFORT REPORTED THE WHOLE SHIFT. MAINTAINED ON ISOLATION FOR IMMUNOSUPPRESSION. REFUSED TO BE TRANSFERRED ON DIFFERENT ROOM EVEN AFTER EXPLAINING THAT HIS CURRENT ROOM IS FOR REPAIR. MOLDED GOODS SPOT PICKER NOTIFIED. BED LOW AND LOCKED ON SEMI FOWLERS POSITION. CALL LIGHT IN REACH. WILL ENDORSE TO MORNING SHIFT FOR JHONATAN.
[2019-06-22 06:51] LABS: CALCIUM, SERUM 6.9 mg/dL (8.5-10.1); POTASSIUM 3.9 mmol/L (3.5-5.1)
--- NOTE | 2019-06-22 07:00 | NUR ---
MS RN NOTES REFUSED OXYGEN TITRATION, RISK AND BENEFITS EXPLAINED. ENDORSE ACCORDINGLY TO MORNING SHIFT.
--- NOTE | 2019-06-22 07:05 | NUR ---
MS RN NOTES CRITICAL LAB: SODIUM 114; GLUCOSE 690mg/dl. REPORTED TO LAB THAT PRIOR AND WHILE DRAWING PATIENTS BLOOD FROM PICC LINE, HE'S EATING FRUITS WITH PINEAPPLE AND PAPAYA'S. ENDORSE ACCORDINGLY TO MORNING SHIFT.
--- NOTE | 2019-06-22 07:45 | NUR ---
MS RN NOTES PATIENT RECEIVED IN BED RESTING. ALERT AND ORIENTED X 4. CRITICAL LAB VALUES NOTIFIED FROM PREVIOUS NURSE, BLOOD GLUCOSE OF 690 mg/dL AND SODIUM 114, DR PETERSON MADE AWARE, NO NEW ORDERS AT THIS TIME. PATIENT ON NON-REBREATHER MASK, GRUNTING AND SHALLOW DEEP BREATHS PRESENT. SKIN DRY, INTACT, AND WARM. ILSA PICC LINE CLEAN, DRY AND INTACT. PATIENT URINE OUTPUT, CLEAR AND YELLOW. SAFETY PRECAUTION IN PLACE, BED IN THE LOWEST POSITION, BED LOCKED, BED ALARM ON, BILATERAL SIDE RAILS UP, AND CALL LIGHT WITHIN EASY REACH. WILL CONTINUE TO MONITOR PATIENT.
[2019-06-22] MEDS ORDERED: DEXTROSE 50%-WATER 50 ML DISP.SYRIN IV PRN (08:00)
--- NOTE | 2019-06-22 08:04 | NUR ---
MS RN NOTES DR PETERSON, ORDERED LABS; BASIC METABOLIC PANEL, MAGNESIUM, PHOSPHORUS, AND CBC. DR LOPEZ STATED TO WEAN OFF PATIENT FROM NON-REBREATHER MASK, AND NOTIFY O2 STAT WHILE WEANING PATIENT. IF PATIENT CAN TOLERATE. WILL CONTINUE TO MONITOR PATIENT.
[2019-06-22] MEDS: PANTOPRAZOLE 40 MG TABLET.DR PO SCH (08:36)
[2019-06-22] MEDS: FLUCONAZOLE (100 MG) 100 MG TABLET PO SCH (08:36)
--- NOTE | 2019-06-22 09:26 | NUR ---
MS RN NOTES ATTEMPTED TO WEAN PATIENT OFF O2. O2 SAT 75% IN ROOM AIR, 79% IN 5L/MIN VIA NC, 92% IN 8L/MIN VIA SIMPLE MASK. DR PETERSON, CONST[place] MADE AWARE. WILL CONTINUE TO MONITOR
--- NOTE | 2019-06-22 10:04 | NUR ---
MS RN NOTES PLACED CALL TO MICROBIOLOGY TO FOLLOW-UP REGARDING PNEUMOCYSTIS RESULT. PER MICROBIOLOGY TECH, NO RESULT FOR PNEUMOCYSTIS IS AVAILABLE AT THIS TIME NO SPECIMEN WAS PROVIDED. PATIENT UNABLE TO PROVIDED SPECIMEN AT THIS TIME WELL AND DOES NOT WANT TO BE INDUCED. RISKS AND BENEFITS EXPLAINED BUT PATIENT CONTINUES TO REFUSE. DR HENRIQUEZ MADE AWARE, NO NEW ORDERS AT THIS TIME. WILL CONTINUE TO MONITOR
--- NOTE | 2019-06-22 10:32 | NUR ---
Social Work Consult Met with this patient who has AIDS and a history of methamphetamine abuse and homelessness. Patient is alert and oriented x4. He says he is homeless but " will go to his mother upon discharge but this is temporary". Patient acknowledges that he is anxious and also says " I need oxygen when I leave". Discussed case with Guillaume, his assigned RN and Leila HAYWARD. Patient will be given homeless resources upon discharge and his oxygen needs will be addressed by case management. Patient cannot go to shelters with oxygen. He is aware of this and says his mother will let him stay with her temporarily. Provided support. Guillaume will request psychiatry consult via Sabas Varela NP.Will follow up if needed. Patient is not suicidal or homicidal and no in need of crisis evaluation or 5150. Will provide homeless resources and patient needs to sign a homeless waiver upon discharge.
[2019-06-22 11:37] LABS: BASOPHILS % (AUTO) 0.1 % (0.0-2.0); HEMATOCRIT 31 % (39-51); HEMOGLOBIN 9.9 g/dL (13.5-17.5); LYMPHOCYTES # (AUTO) 0.4 /CMM (0.8-4.8); LYMPHOCYTES % (AUTO) 23.7 % (20.0-44.0); MEAN CORPUSCULAR HGB CONC 32 g/dl (31.0-36.0); MEAN CORPUSCULAR VOLUME 87 fL (80-96); MONOCYTES # (AUTO) 0.1 /CMM (0.1-1.30); MONOCYTES % (AUTO) 3.6 % (2.0-12.0); NEUTROPHILS # (AUTO) 1.1 /CMM (1.8-8.9); NEUTROPHILS % (AUTO) 72.6 % (43.0-81.0); PLATELET COUNT (AUTO) 92 /CMM (150-450); RED BLOOD CELL COUNT(AUTO) 3.62 MIL/uL (4.5-6.0)
[2019-06-22 11:47] LABS: WHITE BLOOD COUNT (AUTO) 1.5 K/uL (4.3-11.0)
[2019-06-22 12:11] LABS: BAND % (MANUAL) 6 % (0.0-5.0); LYMPHOCYTES % (MANUAL) 24 % (16-48); MONOCYTES % (MANUAL) 3 % (0-11.0); NEUTROPHILS % (MANUAL) 67 (42-76)
[2019-06-22 12:23] LABS: CALCIUM, SERUM 7.3 mg/dL (8.5-10.1); CREATININE 0.9 mg/dL (0.6-1.3); MAGNESIUM 1.5 mg/dL (1.8-2.4); PHOSPHORUS 2.8 mg/dL (2.5-4.9)
[2019-06-22] MEDS: BLOOD SUGAR DIAGNOSTIC 1 EACH STRIP IN SCH ×3 (12:32→21:57)
--- NOTE | 2019-06-22 13:30 | NUR ---
MS RN NOTES GLUCOSE FROM BMP WITH RESULT OF 553. FSBS TAKEN TWICE WITH RESULTS OF 187 AND 154. PATIENT REFUSED TO HAVE INSULIN PER SS. RISKS AND BENEFITS EXPLAINED BUT PATIENT STRONGLY REFUSED, YELLED THAT HE IS NOT DIABETIC AND HE DOES NOT NEED INSULIN. DR PETERSON MADE AWARE, NO NEW ORDERS AT THIS TIME.
[2019-06-22] MEDS: INSULIN REGULAR, HUMAN 100 UNIT/ML 3 ML VIAL SQ PRN ×3 (15:11→21:58)
[2019-06-22 16:00] VITALS: BP 102/54
--- NOTE | 2019-06-22 16:32 | NUR ---
MS RN NOTES WITH NEW ORDER FOR VANCOMYCIN PER PHARMACY DOSING, WITH NEW DOSE SCHEDULED FOR 1700. PLACED CALL TO PHARMACY AND SPOKE WITH BRYSON TO VERIFY TIME, VERBALIZED OK TO GIVE VANCOMYCIN ORDERED FOR 1700. WILL CONTINUE TO MONITOR
[2019-06-22] MEDS: VANCOMYCIN 1.25 GM in IV D5W 250 ML IV SCH ×2 (16:53→22:04)
--- NOTE | 2019-06-22 18:17 | NUR ---
MS RN NOTES PATIENT IN BED RESTING. ALERT AND ORIENTED X 4. PATIENT ON 5L SIMPLE FACE MASK, NO SIGNS OF RESPIRATORY DISTRESS OR DEPRESSION, PATIENT PRESENT WITH GRUNTING. USES URINAL, WITH CLEAR AND YELLOW URINE OUTPUT. PATIENT KEPT CLEAN AND DRY. RIGHT UPPER ARM PICC LINE INTACT. PROVIDED COMFORT MEASURES. SAFETY PRECAUTIONS TAKEN PLACE, WITH BED LOCKED, IN THE LOWEST POSITION, BILATERAL SIDE RAILS UP, BED ALARM ON, AND CALL LIGHT WITHIN EASY REACH. WILL ENDORSE JHONATAN TO ONCOMING NURSE.
--- NOTE | 2019-06-22 19:45 | NUR ---
MS RN RECEIVED PATIENT IN BED A/O X 3,5LPM VIA MASK, REFUSES TO USE NASAL CANNULA DESPITE EXPLAINING RISKS AND BENEFITS. 02 SAT 100%. STABLE AND NOT IN DISTRESS. WILL CONTINUE TO MONITOR
[2019-06-22 20:00] VITALS: BP 115/75
[2019-06-22] MEDS: Potassium Chloride 20 MEQ in IV NS 0.9% 1,000 ML IV PRN (21:46)
--- NOTE | 2019-06-22 21:58 | NUR ---
PT REFUSED R INSULIN SLIDING SCALE OF 2 UNITS. BLOOD SUGAR 141 MG/DL DESPITE EXPLAINING RISKS AND BENEFITS OFFERED 3 TIMES STILL REFUSED
--- NOTE | 2019-06-22 22:00 | NUR ---
ATTEMPTED TO WEAN PATIENT OFF O2. O2 SAT 84% IN ROOM AIR, PT WANTED TO HAVE HIS SIMPLE FACE MASK ON AT 5LPM VIA 02 SAT 100%. PT REFUSED NASAL CANNULA AT THIS TIME
[2019-06-23] MEDS: PIPERACILLIN /TAZOBACTAM 3.375 G in IV D5W 100 ML IV SCH ×3 (03:09→21:02)
[2019-06-23] MEDS: VANCOMYCIN 1.25 GM in IV D5W 250 ML IV SCH ×3 (05:43→17:59)
[2019-06-23] MEDS: methylPREDNISolone SOD SUCC 125 MG/2ML VIAL IV SCH ×3 (05:44→21:02)
[2019-06-23] MEDS: BLOOD SUGAR DIAGNOSTIC 1 EACH STRIP IN SCH ×4 (05:44→21:13)
[2019-06-23] MEDS: INSULIN REGULAR, HUMAN 100 UNIT/ML 3 ML VIAL SQ PRN (06:12)
--- NOTE | 2019-06-23 06:43 | NUR ---
PT SLEPT WELL, NEEDS ATTENDED AND ANTICIPATED, KEPT CLEAN, DRY AND COMFORTABLE AT ALL TIMES. AM CARE RENDERED. NO APPARENT DISTRESS, PT REFUSED R INSULIN SLIDING SCALE BLOOD SUGAR 134 MG/DL PT VERBALIZED "IM NOT DIABETIC I DONT NEED ANY INSULIN" DESPITE EXPLAINING RISKS AND BENEFITS. SAFETY MEASURES IN PLACE. WILL ENDORSE TO NEXT SHIFT POC.
--- NOTE | 2019-06-23 07:33 | NUR ---
RN OPENING NOTES Patient received on oxygen mask, 10 L per hour. A/OP x4 at this time, refusing sputum sample, regular diet, with ILSA picc line. Bed at the lowest setting, call light within reach, side rails up x2.
[2019-06-23 08:00] VITALS: BP 113/62
[2019-06-23] MEDS: SULFAMETHOXAZOLE/TRIMETHOPRIM 20 ML in IV D5W 500 ML IV SCH ×3 (08:30→23:08)
[2019-06-23] MEDS: PANTOPRAZOLE 40 MG TABLET.DR PO SCH (08:31)
[2019-06-23] MEDS: FLUCONAZOLE (100 MG) 100 MG TABLET PO SCH (08:31)
[2019-06-23 08:45] LABS: CALCIUM, SERUM 7.9 mg/dL (8.5-10.1); CREATININE 0.9 mg/dL (0.6-1.3); POTASSIUM 4.3 mmol/L (3.5-5.1)
--- NOTE | 2019-06-23 10:19 | NUR ---
RN NOTES Patient refused blood draw at this time. Patient stated he is tired and weak. Patient refused 3x.
[2019-06-23] MEDS: ALPRAZOLAM 1 MG TABLET PO PRN ×2 (11:22→16:57)
[2019-06-23 16:00] VITALS: BP 123/73
[2019-06-23] MEDS ORDERED: oxyCODONE/APAP (5/325 MG) 1 UDTAB TABLET PO ONE (18:15)
--- NOTE | 2019-06-23 18:44 | NUR ---
RN CLOSING NOTES Patient remains on 10 L mask, no sob noted, and patient states that he is in pain at this time. BRAILLE AND TALKING BOOKS CLERK made aware and ordered a one time percocet. Patient has not had any issues until then. ILSA PICC line remains intact. Per Vivien Villa BRAILLE AND TALKING BOOKS CLERK, finish the NS with 20 MeQ bag and run NS. psych consult still pending. Bed at the lowest setting, call light within reach, side rails up x2. Will give report to NOC RN for JHONATAN bedside.
--- NOTE | 2019-06-23 19:10 | NUR ---
MS/RN OPENING NOTES: Patient is in bed sleeping.Saturating well on 10L mask oxygen. A/O x4, refusing sputum sample and skin assessment, regular diet, with ILSA picc line. Safety measures in place. Bed at the lowest setting, call light within reach, side rails up x2. Will continue monitoring pt. accordingly,.
[2019-06-23 20:00] VITALS: BP 111/65
--- NOTE | 2019-06-23 22:00 | NUR ---
MS/RN NOTES: PATIENT REFUSED ACCUCHECK. INFORMED ABOUT RISK AND BENEFITS 3X. STILL INSISTED ON REFUSING. WILL CONTINUE TO MONITOR PATIENT ACCORDINGLY.
[2019-06-24] MEDS: ALPRAZOLAM 1 MG TABLET PO PRN (00:15)
--- NOTE | 2019-06-24 00:18 | NUR ---
MS/RN NOTES: PATIENT IS AGITATED AND ANXIOUS. OFFERED XANAX 1MG PO TAB. TOLERATED WELL. IN STABLE CONDITION, WILL CONTINUE MONITORING PT. ACCORDINGLY.
[2019-06-24] MEDS: PIPERACILLIN /TAZOBACTAM 3.375 G in IV D5W 100 ML IV SCH ×3 (03:58→20:17)
[2019-06-24] MEDS: Potassium Chloride 20 MEQ in IV NS 0.9% 1,000 ML IV PRN (04:06)
[2019-06-24] MEDS: methylPREDNISolone SOD SUCC 125 MG/2ML VIAL IV SCH ×3 (04:06→20:18)
[2019-06-24] MEDS: VANCOMYCIN 1.5 GM in IV D5W 500 ML IV SCH ×3 (04:39→21:46)
--- NOTE | 2019-06-24 06:36 | NUR ---
MS/RN CLOSING NOTES: Patient remains on 5 L NC, no sob noted, saturating well at 94% and patient states that he is not in pain at this time. Refused blood sugar checks. Informed about risks and benefits x3. Still insisted refusing. Will endorse to day shift nurse to try again because patient doesn't wanna be disturbed at this time. ILSA PICC line remains intact. Psych consult still pending. Bed at the lowest setting, call light within reach, side rails up x2. All needs met and provided. All due meds given. Will give report to day shift RN for JHONATAN bedside.
[2019-06-24] MEDS: BLOOD SUGAR DIAGNOSTIC 1 EACH STRIP IN SCH ×4 (07:22→20:36)
--- NOTE | 2019-06-24 07:39 | NUR ---
rn opening notes Patient received on 10L mask, no sob noted, patient denies pain at this time and is asking for ice cream. A/O x4 and is refusing blood sugar check. ILSA picc line present, regular diet. Bed at the lowest setting, call light within reach, side rails up x2.
[2019-06-24] MEDS: FLUCONAZOLE (100 MG) 100 MG TABLET PO SCH (09:02)
[2019-06-24] MEDS: SULFAMETHOXAZOLE/TRIMETHOPRIM 20 ML in IV D5W 500 ML IV SCH ×3 (09:03→23:52)
[2019-06-24] MEDS: PANTOPRAZOLE 40 MG TABLET.DR PO SCH (09:03)
--- NOTE | 2019-06-24 10:31 | NUR ---
rn notes patient on room air at this time with no sob noted. Saturating 95%. Asleep and is relaxed.
[2019-06-24] MEDS: QUETIAPINE FUMARATE 25 MG TABLET PO SCH ×2 (10:43→20:17)
--- NOTE | 2019-06-24 15:19 | NUR ---
rn notes vancomycin not given due to vancomycin trough not being drawn yet. Stat order was already placed.
[2019-06-24 16:00] VITALS: BP 132/70
[2019-06-24 16:48] LABS: CALCIUM, SERUM 7.8 mg/dL (8.5-10.1); MAGNESIUM 1.7 mg/dL (1.8-2.4); PHOSPHORUS 3.2 mg/dL (2.5-4.9)
--- NOTE | 2019-06-24 17:00 | NUR ---
rn notes Patient refuses blood glucose check all shift. Explained to the patient the benefits. He still refuses 3x.
--- NOTE | 2019-06-24 18:00 | NUR ---
rn closing notes Patient remains on nasal cannula 5 litters per minute. Patient states that this is what he prefers. Patient refuses re draw of blood from him. Patient has a short temper and yells at staff. Very disrespectful. Patient requests for chocolate ice cream the whole shift. Bed at the lowest setting, call light within reach, side rails up x2. Will give report to NOC RN for JHONATAN bedside.
[2019-06-24] MEDS ORDERED: IV NS 0.9% 1,000 ML BAG IV PRN (19:30)
[2019-06-24 20:12] VITALS: BP 126/71
--- NOTE | 2019-06-24 20:32 | NUR ---
REFUSED ACCUCHECK PATIENT REFUSING ACCUCHECK. INFORMED THAT ALTHOUGH HE IS NOT DIABETIC THEY ARE RECOMMENDING WE CHECK IT DUE TO STEROIDS PT STATES, "I KNOW ALL THAT BRO, IT DOESNT MATTER. I JUST DONT WANT TO BE BOTHERED. HURRY UP FINISH UP GET OUT OF HERE AND LEAVE ME ALONE. I WANT TO SLEEP TONIGHT."
[2019-06-24] MEDS: INSULIN REGULAR, HUMAN 100 UNIT/ML 3 ML VIAL SQ PRN (20:36)
[2019-06-25] MEDS: IV NS 0.9% 1,000 ML IV PRN (00:07)
--- NOTE | 2019-06-25 01:21 | NUR ---
PAWEL MARQUIS NOTE. PATIENT SEEN LAYING IN BED. PT IN NO APPARENT RESPIRATORY DISTRESSL. REVIEWED POC WITH PATIENT QUESTIONS QUESTIONS CONCERNS ADDRESSED. PATIENT IS IRRITIBALE STATES, I DON'T NEED NOTHN. I WANT TO BE LEFT ALONE." PATIENT RECIEVING OXYGEN VIA NC. WILL CONT TO MONITOR. Addendum: 06/25/19 at 0525 by SHARMAINE MARION RN NOTE TIME SHOULD BE 1919
[2019-06-25] MEDS: VANCOMYCIN 1.5 GM in IV D5W 500 ML IV SCH ×3 (04:53→21:06)
[2019-06-25] MEDS: PIPERACILLIN /TAZOBACTAM 3.375 G in IV D5W 100 ML IV SCH ×3 (04:53→20:09)
[2019-06-25] MEDS: methylPREDNISolone SOD SUCC 125 MG/2ML VIAL IV SCH ×3 (04:54→21:06)
--- NOTE | 2019-06-25 05:25 | NUR ---
PATIENT REFUSING AM ACCUCHECK AND BLOOD DRAW. PATIENT STATES, "AINT NOBODY GOING TO DRAW BLOOD ON ME TODAY." INFORMED THAT DOCTOR WOULD LIKE TO SEE NEW TEST RESULTS PATIENT STILL REFUSING AM BLOOD DRAW, AM ACCUCHECK ADN SUBSEQUENT INSULIN
--- NOTE | 2019-06-25 05:27 | NUR ---
WEANING OFF OXYGEN UNSUCESSFUL. ATTEMPTED TO WEAN PATIENT OFF OXYGEN BY TURNING O2 DOWN FROM 5 TO 2 LNC. PATIENT REPORTEDLY DID NOT TOLERATE WEANING. WHILE RESTING IN BED PATIENT REPORTS HE IS FEELING SHORT OF BREATH AND SPO2 REPORTEDLY PER THE MACHINE IS AT 83%. PT RR IS 32. 0532 PATIENT TURNED UP TO 6 LNC VIA NC. PATIENT OFFERED FACE MASK BUT PATIENT REFUSED. STATES JUST TURN IT UP, i DON'T WANT TO WEAR NO FACEMASK." PATIENT BREATHING NOW 24 RR SPO2 NOW AT 88% Addendum: 06/25/19 at 0540 by SHARMAINE MARION RN SPO2 NOW AT 90% ON 6LNC HR 100 RR OF 24 PT REPORTS HE FEELS A BIT BETTER
--- NOTE | 2019-06-25 05:56 | NUR ---
PT SATURATING AT 90 PERCENT NOW ON 5LNC STILL DENIES SOB RR OF 24 WILL CONT MONITOR.
[2019-06-25] MEDS: BLOOD SUGAR DIAGNOSTIC 1 EACH STRIP IN SCH ×5 (07:21→21:34)
--- NOTE | 2019-06-25 07:22 | NUR ---
316 CLOSING NOTE. RN PM PATIENT AWAKE, PATIENT REFUSED ACCUCHECKS DOEN. LAB INFORMED THAT PATIENT REFUSING BLOOD DRAWS. DRILLER OPERATOR STATES THEY WILL ATTEMPT TO COLLECT LATER TODAY. PATIENT IN HIS ROOM SATURATING AT 90% ON NC. PT IS TACHYNEIC BUT BREATHING IS EVEN. PT DENES FFEELING SHORT OF BREATH AT THIS TIME. PAT INT BED DOWN LOCKED SRX2 CALL LIGHT WITHIN REACH. PATIENT VERBALIZED UNDERSTANDING TO CALL FOR ASSISTANCE NEEDE.D
[2019-06-25 08:00] VITALS: BP 118/76
--- NOTE | 2019-06-25 08:00 | NUR ---
MS RN OPENING NOTES RECEIVED PT IN BED, AWAKE ALERT AND ORIENTED X 4. NO CARDIAC DISTRESS NOTED. PT HAS HX OF HIV, ON REVERSE ISOLATION. PT HAS A PICC LINE ON ILSA NS AT 75ML/HR. NO COMPLAINTS OF PAIN OR DISCOMOFORT. SAFETY PRECAUTIONS IN PLACE. BED LOCKED AND IN LOW POSITION SIDE RAILS UP.
[2019-06-25] MEDS: PANTOPRAZOLE 40 MG TABLET.DR PO SCH (08:49)
[2019-06-25] MEDS: QUETIAPINE FUMARATE 25 MG TABLET PO SCH ×2 (08:50→21:06)
[2019-06-25] MEDS: FLUCONAZOLE (100 MG) 100 MG TABLET PO SCH (08:50)
[2019-06-25] MEDS: SULFAMETHOXAZOLE/TRIMETHOPRIM 20 ML in IV D5W 500 ML IV SCH ×2 (08:50→16:55)
[2019-06-25 10:01] LABS: BASOPHILS % (AUTO) 0.5 % (0.0-2.0); EOSINOPHILS % (AUTO) 0.1 % (0.0-6.0); HEMATOCRIT 33 % (39-51); HEMOGLOBIN 10.8 g/dL (13.5-17.5); LYMPHOCYTES # (AUTO) 0.3 /CMM (0.8-4.8); MEAN CORPUSCULAR HGB CONC 33 g/dl (31.0-36.0); MEAN CORPUSCULAR VOLUME 85 fL (80-96); MONOCYTES # (AUTO) 0.1 /CMM (0.1-1.30); MONOCYTES % (AUTO) 4.9 % (2.0-12.0); NEUTROPHILS # (AUTO) 1.1 /CMM (1.8-8.9); NEUTROPHILS % (AUTO) 74.5 % (43.0-81.0); PLATELET COUNT (AUTO) 115 /CMM (150-450); RED BLOOD CELL COUNT(AUTO) 3.89 MIL/uL (4.5-6.0)
[2019-06-25 10:11] LABS: WHITE BLOOD COUNT (AUTO) 1.4 K/uL (4.3-11.0)
[2019-06-25 10:14] LABS: CALCIUM, SERUM 7.7 mg/dL (8.5-10.1); CREATININE 0.9 mg/dL (0.6-1.3); MAGNESIUM 1.6 mg/dL (1.8-2.4); PHOSPHORUS 3.2 mg/dL (2.5-4.9); POTASSIUM 3.9 mmol/L (3.5-5.1)
[2019-06-25 10:18] LABS: BAND % (MANUAL) 5 % (0.0-5.0); EOSINOPHILS % (MANUAL) 1 % (0-4); LYMPHOCYTES % (MANUAL) 21 % (16-48); MONOCYTES % (MANUAL) 5 % (0-11.0); NEUTROPHILS % (MANUAL) 68 (42-76)
--- NOTE | 2019-06-25 10:30 | NUR ---
CRITICAL WBC 1.4 NOTIFED JOSE E ELEVATOR TECHNICIAN (HOSPITALIST) AND SOMMER MCCAULEY ELEVATOR TECHNICIAN (INFECTIOUS DISEASE) REGARDING BCRITICALLY LOW WBC. ACCORDING TO THEM NOTHING NEEDS TO BE DONE FOR NOW. PT HAS HIV. NO NEW ORDERS RECEIVED.
[2019-06-25] MEDS: Magnesium 1GM/D5W 100ML PREMIX 100 ML IV SCH ×2 (10:55→12:02)
--- NOTE | 2019-06-25 13:16 | NUR ---
F/U PHARMACY RE VANCO PER PHARMACY ([facility]I) ADMINISTER 1.5G VANCO FOR THE 1PM DOSE. NOTED AND CARRIED OUT.
[2019-06-25 16:00] VITALS: BP 137/86
--- NOTE | 2019-06-25 16:00 | NUR ---
SEEN BY PULMONOLOGY PT WAS SEEN BY PULMONOLOGY DR HUFFMAN, PER MD TO CHANGE NC TO A SIMPLE MASK, KEEP PT AT 6L, LONG PT IS SATURATING >90%
--- NOTE | 2019-06-25 17:15 | NUR ---
PT KEEPS WANTING TO INCREASE OXYGEN LEVEL. PT IS CURRENTLY ON A SIMPLE MASK AT 6L. SATURATING AT 91%. HE STARTS TO COUGH, THEN HE CALLS FOR 'NURSE! NURSE!' HE STATES HE'S SHORT OF BREATH. I ENCOURAGED HIM TO TAKE DEEP BREATHS SLOWLY, IT WILL HELP. HE SAYS, "NO. INCREASE MY OXYGEN, I WANT IT UP. IM HAVING SOB.", PT SATURATION STILL BETWEEN 90-91 AT THIS POINT. PT GETS UPSET AT NURSE THAT WE ARE NOT INCREASING THE O2 LEVELS TO THE MAX. I EXPLAINED TO HIM THAT THIS WILL NOT BE ALSO GOOD FOR HIS LUNGS TO KEEP O2 LEVELS AT A VERY HIGH AMOUNT. HE BECOMES VERY ARGUMENTATIVE AND ANGRY AND STARTS YELLING
--- NOTE | 2019-06-25 18:26 | NUR ---
MS RN CLOSING NOTES PATIENT AWAKE, ALERT AND ORIENTED. REFUSED ALL ACCUCHECKS THIS SHIFT. HE STATES THAT HES NOT DIABETIC AND THAT HIS BLOOD SUGAR DOES NOT NEED TO BE CHECKED. EXPLAINED RISKS CONSEQUENCES AND NEGATIVE OUTCOMES OF NON COMPLIANT BEHAVIORS. PATIENT IS CURRENTLY ON A SIMPLE MASK AT 6L O2. SATURATING AT 90-91%. IV SITE NOTED ON ILSA PICC LINE. NO S/S OF INFECTION OR INFILTRATION NOTED. IV SITE FLUSING WELL. PT HAD X 4 BM TODAY. BED DOWN LOCKED SRX2 CALL LIGHT WITHIN REACH. PATIENT VERBALIZED UNDERSTANDING TO CALL FOR ASSISTANCE NEEDED. WILL ENDORSE TO ONCOMING SHIFT.
--- NOTE | 2019-06-25 19:08 | NUR ---
NON COMPLIANT TO O2 ORDERS PT IS VERY NON COMPLIANT TO O2 ORDERS. HE REQUESTED FOR A NASAL CANULA TO BE PUT ON AND PLACED THE O2 AT 12L. I TOLD HIM THIS IS NOT APPROPRIATE, NOT GOOD FOR HIS LUNGS AND THIS IS NOT THE MD'S ORDERS. I TOLD HM THAT NEEDS TO BE ON A SIMPLE MASK AND WE CAN INCREASE THE O2 LEVELS. I TRIED TO LOWER IT DOWN. AND HE BECAME EXTREMELY UPSET AND STARTED YELLING AND SCREAMING. HE GOT UP, AND STARTED CURSING STATING, "FUCK! JUST DO WHAT I TELL YOU TO DO! I KNOW MY BODY." HE GOT UP AND TURNED THE O2, TOOK THE NASAL CANULA AND PLACED IT BACK ON HIS NOSE. I GAVE THE PT SPACE AND HE CONTINUED TO CURSE AND YELL AND SCREAM I LEFT THE ROOM. Addendum: 06/25/19 at 1913 by MICKEY GARCIA RN NON COMPLIANT TO O2 ORDERS PT IS VERY NON COMPLIANT TO O2 ORDERS. HE REQUESTED FOR A NASAL CANULA TO BE PUT ON AND PLACED THE O2 AT 12L. I TOLD HIM THIS IS NOT APPROPRIATE, NOT GOOD FOR HIS LUNGS AND THIS IS NOT THE MD'S ORDERS. I TOLD HM THAT NEEDS TO BE ON A SIMPLE MASK AND WE CAN INCREASE THE O2 LEVELS. I TRIED TO LOWER IT DOWN. AND HE BECAME EXTREMELY UPSET AND STARTED YELLING AND SCREAMING. HE GOT UP, AND STARTED CURSING STATING, "FUCK! JUST DO WHAT I TELL YOU TO DO! I KNOW MY BODY." HE GOT UP AND TURNED THE O2, TOOK THE NASAL CANULA AND PLACED IT BACK ON HIS NOSE. I GAVE THE PT SPACE AND HE CONTINUED TO CURSE AND YELL AND SCREAM I LEFT THE ROOM. PT TURNED UP THE O2 AT THE VERY MAXIMUM AMOUNT.
[2019-06-25 20:11] VITALS: BP 130/77
--- NOTE | 2019-06-25 21:34 | NUR ---
MS RN NOTES PT REFUSED BLOOD SUGAR CHECK. EXPLAINED TO PT IMPORTANCE OF BLOOD SUGAR CHECK IN HIS POC BUT PT STILL REFUSED. WILL CONTINUE TO MONITOR.
[2019-06-26] MEDS: SULFAMETHOXAZOLE/TRIMETHOPRIM 20 ML in IV D5W 500 ML IV SCH ×4 (00:38→23:27)
[2019-06-26] MEDS: IV NS 0.9% 1,000 ML IV PRN (04:10)
[2019-06-26] MEDS: PIPERACILLIN /TAZOBACTAM 3.375 G in IV D5W 100 ML IV SCH ×3 (04:10→20:01)
[2019-06-26] MEDS: methylPREDNISolone SOD SUCC 125 MG/2ML VIAL IV SCH ×3 (05:16→21:58)
[2019-06-26] MEDS: VANCOMYCIN 1.5 GM in IV D5W 500 ML IV SCH ×3 (05:17→20:30)
--- NOTE | 2019-06-26 06:20 | NUR ---
MS RN NOTES AWAKE & RESPONSIVE. NOT IN ANY DISTRESS. NO SOB NOTED. DENIES ANY PAIN OR DISCOMFORT AT THIS TIME. WITH IVF INFUSING WELL. AM CARE DONE. MONITORED ACCORDINGLY. CALL LIGHT WITHIN REACH. BED IN LOWEST POSITION. SR UP X 2 FOR SAFETY. WILL ENDORSE TO NEXT SHIFT.
[2019-06-26] MEDS: BLOOD SUGAR DIAGNOSTIC 1 EACH STRIP IN SCH ×4 (06:33→21:55)
[2019-06-26 08:00] VITALS: BP 137/70
--- NOTE | 2019-06-26 08:00 | NUR ---
MS RN OPENING NOTES Received Patient asleep and resting in bed. A/O x 4. VS stable with no acute distress. Breathing even and unlabored on 10LPM via Mask with no respiratory distress. Denies pain. No signs and symptoms of pain. ILSA PICC Line clean, intact, patent and flushing well with NS infusing at 75ml/hr. Safety precautions in place. Bed locked and set to lowest position with side rails x 2 up. All needs rendered at this time. Call light within reach. Will continue to monitor.
[2019-06-26] MEDS: PANTOPRAZOLE 40 MG TABLET.DR PO SCH (08:20)
[2019-06-26] MEDS: FLUCONAZOLE (100 MG) 100 MG TABLET PO SCH (08:21)
[2019-06-26] MEDS: QUETIAPINE FUMARATE 25 MG TABLET PO SCH ×2 (08:21→20:02)
[2019-06-26 17:16] LABS: BASOPHILS % (AUTO) 0.1 % (0.0-2.0); HEMATOCRIT 31 % (39-51); HEMOGLOBIN 10.3 g/dL (13.5-17.5); LYMPHOCYTES # (AUTO) 0.3 /CMM (0.8-4.8); LYMPHOCYTES % (AUTO) 15.9 % (20.0-44.0); MEAN CORPUSCULAR HGB CONC 33 g/dl (31.0-36.0); MEAN CORPUSCULAR VOLUME 85 fL (80-96); MONOCYTES # (AUTO) 0.1 /CMM (0.1-1.30); MONOCYTES % (AUTO) 6.4 % (2.0-12.0); NEUTROPHILS # (AUTO) 1.4 /CMM (1.8-8.9); NEUTROPHILS % (AUTO) 77.6 % (43.0-81.0); PLATELET COUNT (AUTO) 153 /CMM (150-450); RED BLOOD CELL COUNT(AUTO) 3.66 MIL/uL (4.5-6.0)
[2019-06-26 17:22] LABS: WHITE BLOOD COUNT (AUTO) 1.8 K/uL (4.3-11.0)
[2019-06-26 17:36] LABS: CALCIUM, SERUM 7.8 mg/dL (8.5-10.1); POTASSIUM 4.1 mmol/L (3.5-5.1)
--- NOTE | 2019-06-26 17:41 | NUR ---
MS RN NOTES BS - 143 Patient refused Insulin coverage. Explained risks and benefits. Patient still refused. Patient in stable condition. Will continue to monitor.
[2019-06-26] MEDS: INSULIN REGULAR, HUMAN 100 UNIT/ML 3 ML VIAL SQ PRN (17:43)
[2019-06-26 17:57] LABS: BAND % (MANUAL) 9 % (0.0-5.0); LYMPHOCYTES % (MANUAL) 15 % (16-48); MONOCYTES % (MANUAL) 6 % (0-11.0); NEUTROPHILS % (MANUAL) 70 (42-76)
--- NOTE | 2019-06-26 18:31 | NUR ---
MS RN NOTES Patient request Tums for indigestion. Called and notified [facility]. Per MD, may order 500mg Tums PRN TID. Order noted and carried out. Patient in stable condition. Will continue to monitor.
--- NOTE | 2019-06-26 18:48 | NUR ---
MS RN CLOSING NOTES Patient awake and resting in bed. A/O x 4. VS stable with no acute distress. Breathing even and unlabored on 10LPM via Mask with no respiratory distress. Denies pain. No signs and symptoms of pain. ILSA PICC Line clean, intact, patent and flushing well with NS infusing at 75ml/hr. Safety precautions in place. Bed locked and set to lowest position with side rails x 2 up. All needs rendered at this time. Mom at bedside. Call light within reach. Will endorse plan of care to oncoming shift.
[2019-06-26] MEDS ORDERED: CALCIUM CARBONATE 500 MG TAB.CHEW PO PRN (19:00)
--- NOTE | 2019-06-26 19:10 | NUR ---
MS/RN OPENING NOTES: Received poatient asleep and resting in bed. A/O x 4. VS stable with no acute distress. Breathing even and unlabored on 10LPM via Mask with no respiratory distress. Denies pain. No signs and symptoms of pain. ILSA PICC Line clean, intact, patent and flushing well with NS infusing at 75ml/hr. Safety precautions in place. Bed locked and set to lowest position with side rails x 2 up. All needs rendered at this time. Call light within reach. Will continue to monitor.
[2019-06-26 20:00] VITALS: BP 130/62
[2019-06-27] MEDS: PIPERACILLIN /TAZOBACTAM 3.375 G in IV D5W 100 ML IV SCH ×3 (03:03→20:00)
[2019-06-27] MEDS: VANCOMYCIN 1.5 GM in IV D5W 500 ML IV SCH ×2 (04:21→13:02)
[2019-06-27] MEDS: methylPREDNISolone SOD SUCC 125 MG/2ML VIAL IV SCH ×3 (04:21→20:05)
[2019-06-27] MEDS: IV NS 0.9% 1,000 ML IV PRN (06:08)
--- NOTE | 2019-06-27 06:37 | NUR ---
MS/RN CLOSING NOTES: Patient is in stable condition. Resting in bed. Remains A/O x 4. No significant changes in condition. VS stable with no acute distress. Breathing even and unlabored on 10LPM via Mask with no respiratory distress. Denies pain. No signs and symptoms of pain. ILSA PICC Line clean, intact, patent and flushing well with NS infusing at 75ml/hr. Safety precautions in place. Bed locked and set to lowest position with side rails x 2 up. All needs rendered at this time. Kept warm and comfortable in bed the entire night, Call light within reach. Will endorse plan of care to day shift nurse.
[2019-06-27 07:06] LABS: BASOPHILS % (AUTO) 0.3 % (0.0-2.0); HEMATOCRIT 33 % (39-51); HEMOGLOBIN 10.6 g/dL (13.5-17.5); LYMPHOCYTES # (AUTO) 0.3 /CMM (0.8-4.8); LYMPHOCYTES % (AUTO) 14.2 % (20.0-44.0); MEAN CORPUSCULAR HGB CONC 33 g/dl (31.0-36.0); MEAN CORPUSCULAR VOLUME 85 fL (80-96); MONOCYTES # (AUTO) 0.1 /CMM (0.1-1.30); MONOCYTES % (AUTO) 4.5 % (2.0-12.0); NEUTROPHILS # (AUTO) 1.6 /CMM (1.8-8.9); PLATELET COUNT (AUTO) 155 /CMM (150-450); RED BLOOD CELL COUNT(AUTO) 3.83 MIL/uL (4.5-6.0)
--- NOTE | 2019-06-27 07:15 | NUR ---
MS RN OPENING NOTES: RECEIVED PATIENT IN BED, AWAKE, WATCHING TV, A/O X4. PATIENT ON OXYGEN THERAPY ON 10 LPM VIA MASK. BREATHING IS EVEN, WITH NO SOB AT THIS TIME. DENIES ANY PAIN. ILSA PICC LINE IS INTACT AND INFUSING NS AT 75 CC/HR. SAFETY PRECAUTIONS IN PLACE; BED IN LOW POSITION AND LOCKED, RAILS UP X 2, CALL LIGHT WITHIN REACH. WILL CONTINUE TO MONITOR PATIENT.
[2019-06-27] MEDS: PANTOPRAZOLE 40 MG TABLET.DR PO SCH (07:38)
[2019-06-27] MEDS: BLOOD SUGAR DIAGNOSTIC 1 EACH STRIP IN SCH ×4 (07:44→22:00)
[2019-06-27 08:00] VITALS: BP 134/75
[2019-06-27 08:13] LABS: CREATININE 0.8 mg/dL (0.6-1.3); POTASSIUM 4.3 mmol/L (3.5-5.1)
[2019-06-27 08:21] LABS: WHITE BLOOD COUNT (AUTO) 1.9 K/uL (4.3-11.0)
--- NOTE | 2019-06-27 08:28 | NUR ---
MS RN NOTES RECEIVED A CALL FROM LAB WITH A CRITICAL VALUE FOR WBC OF 1.9. NOTIFIED.
[2019-06-27] MEDS: SULFAMETHOXAZOLE/TRIMETHOPRIM 20 ML in IV D5W 500 ML IV SCH ×2 (08:33→16:00)
[2019-06-27] MEDS: QUETIAPINE FUMARATE 25 MG TABLET PO SCH ×2 (09:00→20:06)
[2019-06-27] MEDS: FLUCONAZOLE (100 MG) 100 MG TABLET PO SCH (09:00)
[2019-06-27 09:15] LABS: LYMPHOCYTES % (MANUAL) 13 % (16-48); MONOCYTES % (MANUAL) 10 % (0-11.0); NEUTROPHILS % (MANUAL) 77 (42-76)
--- NOTE | 2019-06-27 12:07 | NUR ---
MS/RN NOTES BS 120MG/DL NO COVERAGE.
--- NOTE | 2019-06-27 14:46 | NUR ---
FIRE EXTINGUISHER TECHNICIAN was informed by Dr. Friedman to schedule a family meeting to discuss plan of care. FIRE EXTINGUISHER TECHNICIAN with assistance from RN Jennifer, ( mother is Bulgarian speaking) contacted pt's mother Luis and left a voicemail message requesting her to call back or speak to pt's nurse when she visits this evening to give a day and time for a meeting. [facility] also updated pt's PAWEL Dominguez to let pt's mother know when she visits this evening that doctor is wanting to schedule a family meeting to discuss plan of care.
--- NOTE | 2019-06-27 18:00 | NUR ---
MS/RN NOTES PATIENT REFUSED TO TAKE ANTIBIOTIC AND ACCUCHECK EXPLAINED THE RISK AND BENEFITS 2X, STILL PATIENT VERBALIZED THAT HE DOESN'T NEED IT.
--- NOTE | 2019-06-27 18:00 | NUR ---
MS/RN NOTES PATIENT REFUSED FOR SPUTUM COLLECTION EXPLAINED THE RISK AND BENEFITS X4. CHARGED NURSE IS AWARE.
--- NOTE | 2019-06-27 18:22 | NUR ---
MS/RN CLOSING NOTES PATIENT IS ON THE BED LYING COMFORTABLY. PATIENT IS ALERT AND ORIENTED X3. DENIES PAIN AT THIS TIME. NO RESPIRATORY DISCOMFORT NOTED. PATIENT IS ON MASK REBREATHER AT 10 L/HR. IV FLUID OF NS 1L AT 75ML/HR ON AND INFUSING WELL. RIGHT UA PICC PATENT AND INTACT. SEEN AND EXAMINED BY MD WITH ORDERS MADE AND CARRIED OUT. ALL DUE MEDS WAS GIVEN. PATIENT CHECKED EVERY 2 HOURS. BED IN LOWEST POSITION. SIDE RAILS UP X2. CALL LIGHT WITH IN REACH. WILL ENDORSED TO FOOD SERVICE HOTEL RUNNER FOR [facility].
--- NOTE | 2019-06-27 19:10 | NUR ---
MS/RN OPENING NOTES: Received patient resting in bed. A/O x 4. Verbally responsive and able to make needs known. VS stable with no acute distress. Breathing even and unlabored on 10LPM via Mask with no respiratory distress. No complains of pain at this time. ILSA PICC line clean, intact, patent and flushing well. patient is refusing to be connected and received IV fluids. Per patient "I don't need it". Explain the risks and benefits x3. Patient insisted on refusing. Safety precautions are in place. Bed is in locked and set to lowest position with side rails x 2 up. All needs rendered at this time. Call light within reach. Will continue to monitor accordingly.
[2019-06-27 20:00] VITALS: BP 128/76
--- NOTE | 2019-06-27 20:00 | NUR ---
MS/RN NOTES: PATIENT IS COMPLIANT WITH PO MEDS HOWEVER, REFUSES ALL IV ANTIBIOTICS. PER PATIENT "I DON'T EVEN NEED ALL THIS ANTIBIOTICS I'M GETTING." EDUCATED ABOUT THE RISKS AND BENEFITS X3. STILL INSISTED ON REFUSING. PATIENT IS STABLE AND WILL CONTINUE MONITORING ACCORDINGLY.
[2019-06-27 20:43] VITALS: BP 128/76
--- NOTE | 2019-06-27 22:00 | NUR ---
MS/RN NOTES: PATIENT REFUSED BS CHECK. EDUCATED ABOUT RISKS AND BENEFITS 3X. STILL INSISTED ON REFUSAL. WILL CONTINUE TO MONITOR.
--- NOTE | 2019-06-28 | NUR ---
MS/RN NOTES: PATIENT IS REFUSED BACTRIM 500 ML IV ANTIBIOTIC. EDUCATED ABOUT THE RISKS AND BENEFITS X3. STILL INSISTED ON REFUSING. PATIENT IS STABLE AND WILL CONTINUE MONITORING ACCORDINGLY.
[2019-06-28] MEDS: PIPERACILLIN /TAZOBACTAM 3.375 G in IV D5W 100 ML IV SCH ×3 (03:17→20:06)
[2019-06-28] MEDS: methylPREDNISolone SOD SUCC 125 MG/2ML VIAL IV SCH ×3 (05:03→20:06)
--- NOTE | 2019-06-28 05:44 | NUR ---
MS/RN NOTES: PATIENT IS REFUSED ZOSYN 3.375 MG IV ANTIBIOTIC. EDUCATED ABOUT THE RISKS AND BENEFITS X3. STILL INSISTED ON REFUSING. PATIENT IS STABLE AND WILL CONTINUE MONITORING ACCORDINGLY.
--- NOTE | 2019-06-28 06:52 | NUR ---
MS/RN CLOSING NOTES: Patient is in stable condition. Remains A/O x 4. No significant changes in condition. VS stable with no acute distress. Breathing even and unlabored on 10LPM via Mask with no respiratory distress. Denies pain. No signs and symptoms of pain. ILSA PICC Line clean, intact, patent and flushing well. Refuses fluids and antibiotics through out the shift, REFUSES LAB DRAW RIGHT NOW. WILL ENDORSE TO DAY SHIFT TO TRY LATER. Safety precautions in place. Bed locked and set to lowest position with side rails x 2 up. All needs rendered at this time. Kept warm and comfortable in bed the entire night, Call light within reach. Will endorse plan of care to day shift nurse.
[2019-06-28] MEDS: BLOOD SUGAR DIAGNOSTIC 1 EACH STRIP IN SCH ×4 (07:30→21:55)
[2019-06-28] MEDS: PANTOPRAZOLE 40 MG TABLET.DR PO SCH (07:30)
--- NOTE | 2019-06-28 07:51 | NUR ---
rn opening notes Patient received on mask, 12 L per minute. No sob noted, eating by himself, a/o x4. Denies pain at this time. Refusing a lot of blood draws, insulin checks, and IV fluid. Explained the benefits of such things, but still refuses. Bed at the lowest setting, call light within reach, side rails up x2.
[2019-06-28] MEDS: SULFAMETHOXAZOLE/TRIMETHOPRIM 20 ML in IV D5W 500 ML IV SCH ×4 (08:00→16:31)
[2019-06-28] MEDS: FLUCONAZOLE (100 MG) 100 MG TABLET PO SCH ×2 (08:53→11:51)
[2019-06-28] MEDS: QUETIAPINE FUMARATE 25 MG TABLET PO SCH ×3 (08:53→20:06)
--- NOTE | 2019-06-28 08:53 | NUR ---
rn notes Patient is refusing all of his medications x3. Patient stated "Fuck this hospital, I want to go home, I do not want to take anything, fuck this hospital".
--- NOTE | 2019-06-28 10:53 | NUR ---
Dr. Friedman discussed plan of care with pt's mother and sister Mirian via phone regarding pt. going home with hospice or [facility]. Per Dr. Friedman, pt's sister Mirian will visit the pt. today and speak with him regarding his two options. NATANAEL Martino has been updated as well.
[2019-06-28 12:03] LABS: CALCIUM, SERUM 7.8 mg/dL (8.5-10.1); CREATININE 0.8 mg/dL (0.6-1.3); POTASSIUM 4.4 mmol/L (3.5-5.1)
[2019-06-28 12:12] LABS: BASOPHILS % (AUTO) 0.2 % (0.0-2.0); HEMATOCRIT 35 % (39-51); HEMOGLOBIN 11.2 g/dL (13.5-17.5); LYMPHOCYTES # (AUTO) 0.3 /CMM (0.8-4.8); LYMPHOCYTES % (AUTO) 11.9 % (20.0-44.0); MEAN CORPUSCULAR HGB CONC 33 g/dl (31.0-36.0); MEAN CORPUSCULAR VOLUME 85 fL (80-96); MONOCYTES # (AUTO) 0.1 /CMM (0.1-1.30); MONOCYTES % (AUTO) 4.8 % (2.0-12.0); NEUTROPHILS # (AUTO) 2.3 /CMM (1.8-8.9); NEUTROPHILS % (AUTO) 83.1 % (43.0-81.0); PLATELET COUNT (AUTO) 152 /CMM (150-450); RED BLOOD CELL COUNT(AUTO) 4.05 MIL/uL (4.5-6.0); WHITE BLOOD COUNT (AUTO) 2.8 K/uL (4.3-11.0)
[2019-06-28 13:26] LABS: BAND % (MANUAL) 5 % (0.0-5.0); LYMPHOCYTES % (MANUAL) 5 % (16-48); MONOCYTES % (MANUAL) 7 % (0-11.0); MYELOCYTES % 5 % (0-0); NEUTROPHILS % (MANUAL) 78 (42-76)
[2019-06-28 16:00] VITALS: BP 131/72
[2019-06-28] MEDS: IBUPROFEN 400 MG TABLET PO PRN (17:09)
--- NOTE | 2019-06-28 18:04 | NUR ---
RN CLOSING NOTES Patient remains on mask 12 L per minute o2. A/O x4, remains aggressive at times, verbally. R UA picc line with NS 75 ml per hour running. Refused blood sugar checks. Stating pain is under control. IV abx medications taken this shift. Bed at the lowest setting, call light within reach, side rails up x2.Will give report to NOC RN for [facility] bedside.
--- NOTE | 2019-06-28 19:37 | NUR ---
MS RN NOTES PATIENT RECEIVED RESTING IN BED IN A HIGH FOWLERS POSITION, A/O X4. ON A MASK RECEIVING 10L OF O2, BREATHING EVEN AND UNLABORED, NO SOB NOTED. NO PAIN OR DISCOMFORT NOTED, NO SIGNS OF ACUTE DISTRESS. ILSA PICC NOTED INTACT. SAFETY PRECAUTIONS IN PLACE WITH BED IN LOWEST POSITION, CALL LIGHT WITHIN REACH, BREAKS ON, AND SIDE RAILS UPX2. WILL CONTINUE TO MONITOR.
[2019-06-28 20:00] VITALS: BP 124/77
--- NOTE | 2019-06-28 20:50 | NUR ---
MS RN NOTES PATIENT O2 SAT 86% ON 10 L VIA MASK. PATIENT HEAD OF THE BED IN HIGH FOWLERS ALREADY, CALLED RT. PATIENT WAS IRRITATED AND NON COMPLIANT, EDUCATED AND EXPLAINED TO PATIENT RISKS OF LOW O2 SAT. PT, COMPLIANT AND SWITCHED PATIENT TO NON REBREATHER MASK 16L 02 SAT AT 95%. PATIENT STILL IRRITATED AND TOLD ME TO "LEAVE HIM ALONE AND TO NOT COME BACK" WILL CONTINUE TO MONITOR.
[2019-06-29] MEDS: SULFAMETHOXAZOLE/TRIMETHOPRIM 20 ML in IV D5W 500 ML IV SCH ×4 (00:20→23:03)
[2019-06-29] MEDS: methylPREDNISolone SOD SUCC 125 MG/2ML VIAL IV SCH ×3 (04:13→20:30)
[2019-06-29] MEDS: PIPERACILLIN /TAZOBACTAM 3.375 G in IV D5W 100 ML IV SCH ×3 (04:13→20:00)
[2019-06-29] MEDS: IV NS 0.9% 1,000 ML IV PRN (05:36)
[2019-06-29] MEDS: BLOOD SUGAR DIAGNOSTIC 1 EACH STRIP IN SCH ×4 (06:45→21:46)
--- NOTE | 2019-06-29 06:46 | NUR ---
MS RN CLOSING NOTES PATIENT RESTING IN BED IN A HIGH FOWLERS POSITION, A/O X4. ON A NON REBREATHER MASK RECEIVING 12L OF O2, BREATHING EVEN AND UNLABORED, NO SOB NOTED. NO PAIN OR DISCOMFORT NOTED, NO SIGNS OF ACUTE DISTRESS. ILSA PICC NOTED INTACT. SAFETY PRECAUTIONS IN PLACE WITH BED IN LOWEST POSITION, CALL LIGHT WITHIN REACH, BREAKS ON, AND SIDE RAILS UPX2. ALL NEEDS WERE ATTENDE TO THROUGHOUT THE NIGHT. WILL ENDORSE TO ONCOMING SHIFT ABOUT [facility].
[2019-06-29 07:55] LABS: BASOPHILS % (AUTO) 0.3 % (0.0-2.0); HEMATOCRIT 34 % (39-51); HEMOGLOBIN 11.3 g/dL (13.5-17.5); LYMPHOCYTES # (AUTO) 0.3 /CMM (0.8-4.8); LYMPHOCYTES % (AUTO) 12.3 % (20.0-44.0); MEAN CORPUSCULAR HGB CONC 33 g/dl (31.0-36.0); MEAN CORPUSCULAR VOLUME 86 fL (80-96); NEUTROPHILS # (AUTO) 1.9 /CMM (1.8-8.9); NEUTROPHILS % (AUTO) 85.4 % (43.0-81.0); PLATELET COUNT (AUTO) 122 /CMM (150-450); RED BLOOD CELL COUNT(AUTO) 3.99 MIL/uL (4.5-6.0); WHITE BLOOD COUNT (AUTO) 2.2 K/uL (4.3-11.0)
--- NOTE | 2019-06-29 07:56 | NUR ---
ms opening notes Received patient on non rebreather mask, 15 L o2. No sob noted, patient denies pain at this time. Able to draw blood from patients PICC line. ILSA picc line with 75 ml per hour. Bed at the lowest setting, call light within reach, side rails up x2.
[2019-06-29 08:00] VITALS: BP 124/66
[2019-06-29 08:09] LABS: CALCIUM, SERUM 7.3 mg/dL (8.5-10.1); CREATININE 0.8 mg/dL (0.6-1.3); POTASSIUM 4.2 mmol/L (3.5-5.1)
[2019-06-29] MEDS: QUETIAPINE FUMARATE 25 MG TABLET PO SCH ×2 (08:09→20:25)
[2019-06-29] MEDS: PANTOPRAZOLE 40 MG TABLET.DR PO SCH (08:09)
[2019-06-29] MEDS: FLUCONAZOLE (100 MG) 100 MG TABLET PO SCH (08:10)
--- NOTE | 2019-06-29 10:27 | NUR ---
Psychiatric Social Work Note Pt. was reportedly angry and volatile with family last night. He was seen in his room this morning where he is very irritable and angry. P. is alert and oriented to person, situation and place. Patient is very anxious and repeats " I cannot breathe". 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 Discussed this case with Dr Jaeger who last saw this patient on June [address] Jaeger will come and do another consultation. Patient has multiple comorbidities that cause his behavior and labile mood. He is neither suicidal nor homicidal. Discussed case with Leila Santiago LCSW who will coordinate with case management re code status and likely discharge home with mother and Hospice which has been recommended by [facility] physician. Patient was rejected at [place] per Pamela ARMASmailroom manager.
[2019-06-29] MEDS: IBUPROFEN 400 MG TABLET PO PRN (17:55)
--- NOTE | 2019-06-29 18:09 | NUR ---
rn closing notes Patient remains on NRB at this time, ILSA piccline remains patent with NS @ 75 ml per hour. Patient gets verbally abusive at times, yelling at his mom, staff, and just yelling in the room by himself. Takes medications and IV medications but not blood sugar checks. Bed at the lowest setting, call light within reach, side rails up x2. Will give report to NOC RN for [facility] bedside.
--- NOTE | 2019-06-29 19:05 | NUR ---
MS RN NOTES PT RECEIVED IN BED AND AWAKE. PT A/O X3 AND ABLE TO MAKE NEEDS KNOWN. SAFETY MEASURES IN PLACE WITH BED IN LOWEST AND LOCKED POSITION WITH SIDE RAILS UPX2, PT NOTED TO BE ON 15L VIA NONREBREATHER AT THIS TIME WITH PLAN TO WEAN OFF OXYGEN, PICC LINE IS PATENT CALL LIGHT WITHIN REACH, WILL CONTINUE TO MONITOR.
--- NOTE | 2019-06-29 20:00 | NUR ---
MS RN NOTES PT REFUSED VITALS AT THIS TIME. WILL CONTINUE TO MONITOR.
--- NOTE | 2019-06-29 20:15 | NUR ---
MS RN NOTES PT COMPLAINS OF PAIN, PT REFUSED TYLENOL AND MOTRIN WAS PREVIOUSLY GIVEN. MADE AWARE. NEW ORDER FOR NORCO 5/325 PO X1. AWAITING VERIFICATION FROM PHARMACY. WILL CONTINUE TO MONITOR.
--- NOTE | 2019-06-29 20:22 | NUR ---
MS RN NOTES PT REFUSING IV ATX ZOSYN 3.375 AT THIS TIME. PT YELLING AND VERBALLY ABUSIVE. EXPLAINED RISKS AND BENEFITS AND PT VERBALIZED UNDERSTANDING.
[2019-06-29] MEDS ORDERED: HYDROCODONE/APAP 5/325MG 1 EACH TABLET PO ONE (20:30)
--- NOTE | 2019-06-29 20:31 | NUR ---
MS RN NOTES PT REFUSED SOLUMEDROL MEDICATION. PT CONTINUES TO YELL AND BE ABUSIVE TO STAFF. EXPLAINED RISKS AND BENEFITS AND PT VERBALIZED UNDERSTANDING.
--- NOTE | 2019-06-29 21:02 | NUR ---
MS RN NOTES PT REFUSING IV HYDRATION AT THIS TIME. WILL CONTINUE TO MONITOR.
--- NOTE | 2019-06-29 21:46 | NUR ---
MS RN NOTES PT REFUSING ACCU-CHECK AT THIS TIME. WILL CONTINUE TO MONITOR.
--- NOTE | 2019-06-29 23:03 | NUR ---
MS RN NOTES PT REFUSING IV ABX BACTRIM AT THIS TIME. EXPLAINED RISK AND BENEFITS AND PT VERBALIZED UNDERSTANDING. WILL CONTINUE TO MONITOR.
[2019-06-30] MEDS: PIPERACILLIN /TAZOBACTAM 3.375 G in IV D5W 100 ML IV SCH ×3 (04:00→20:58)
--- NOTE | 2019-06-30 04:23 | NUR ---
MS RN NOTES PT CONTINUES TO REFUSE ZOSYN AT THIS TIME. WILL CONTINUE TO MONITOR.
[2019-06-30] MEDS: methylPREDNISolone SOD SUCC 125 MG/2ML VIAL IV SCH ×3 (04:26→21:34)
[2019-06-30] MEDS: IBUPROFEN 400 MG TABLET PO PRN ×2 (04:33→16:27)
[2019-06-30] MEDS: BLOOD SUGAR DIAGNOSTIC 1 EACH STRIP IN SCH ×4 (07:01→21:34)
--- NOTE | 2019-06-30 07:01 | NUR ---
MS RN NOTES PT REFUSED BLOOD SUGAR CHECK AT THIS TIME. WILL CONTINUE TO MONITOR.
--- NOTE | 2019-06-30 07:27 | NUR ---
RN OPENING NOTE PT WAS RECEIVED IN BED AT LOWEST AND LOCKED POSITION WITH SIDE RAILS UPX2, A/O X3, NOTED TO BE ON 15L VIA NONREBREATHER AT THIS TIME WITH PLAN TO WEAN OFF OXYGEN, PT REFUSED FLUIDS/ACCUCHECKS/VITALS/ANTIBIOTICS LAST NIGHT, PICC LINE IS PATENT AND INTACT WITH BLOOD JUST DRAWN FOR LABS, SAFETY PRECAUTIONS IN PLACE, CALL LIGHT IN REACH, WILL MONITOR PT ACCORDINGLY
--- NOTE | 2019-06-30 07:34 | NUR ---
MS RN NOTES PT IN BED AND AWAKE. PT A/O X3 AND ABLE TO MAKE NEEDS KNOWN. SAFETY MEASURES IN PLACE WITH BED IN LOWEST AND LOCKED POSITION WITH SIDE RAILS UPX2, PT NOTED TO BE ON 15L VIA NONREBREATHER AT THIS TIME WITH PLAN TO WEAN OFF OXYGEN, PICC LINE IS PATENT CALL LIGHT WITHIN REACH, NO ACUTE CHANGES THROUGHOUT SHIFT, WILL ENDORSE TO ONCOMING NURSE FOR [facility].
[2019-06-30 07:52] LABS: BASOPHILS % (AUTO) 0.1 % (0.0-2.0); HEMATOCRIT 36 % (39-51); HEMOGLOBIN 11.8 g/dL (13.5-17.5); LYMPHOCYTES # (AUTO) 0.3 /CMM (0.8-4.8); LYMPHOCYTES % (AUTO) 11.9 % (20.0-44.0); MEAN CORPUSCULAR HGB CONC 32 g/dl (31.0-36.0); MEAN CORPUSCULAR VOLUME 86 fL (80-96); MONOCYTES # (AUTO) 0.1 /CMM (0.1-1.30); MONOCYTES % (AUTO) 2.3 % (2.0-12.0); NEUTROPHILS # (AUTO) 2.4 /CMM (1.8-8.9); NEUTROPHILS % (AUTO) 85.7 % (43.0-81.0); PLATELET COUNT (AUTO) 108 /CMM (150-450); RED BLOOD CELL COUNT(AUTO) 4.22 MIL/uL (4.5-6.0); WHITE BLOOD COUNT (AUTO) 2.8 K/uL (4.3-11.0)
[2019-06-30 08:00] VITALS: BP 126/70
[2019-06-30] MEDS: SULFAMETHOXAZOLE/TRIMETHOPRIM 20 ML in IV D5W 500 ML IV SCH ×2 (08:00→15:03)
[2019-06-30] MEDS: FLUCONAZOLE (100 MG) 100 MG TABLET PO SCH (08:10)
[2019-06-30] MEDS: QUETIAPINE FUMARATE 25 MG TABLET PO SCH ×2 (08:10→21:00)
[2019-06-30] MEDS: PANTOPRAZOLE 40 MG TABLET.DR PO SCH (08:10)
--- NOTE | 2019-06-30 08:14 | NUR ---
RN NOTE PT REFUSED IV BACTRIM AT THIS TIME SAYING "HE DOES NOT NEED IT, I AM GOOD", INFORMED AND EDUCATED ABOUT ANTIBIOTIC REFUSAL. WILL CONTINUE TO MONITOR
[2019-06-30 08:22] LABS: CALCIUM, SERUM 7.7 mg/dL (8.5-10.1); CREATININE 0.8 mg/dL (0.6-1.3); POTASSIUM 4.3 mmol/L (3.5-5.1)
[2019-06-30 08:34] LABS: BAND % (MANUAL) 16 % (0.0-5.0); LYMPHOCYTES % (MANUAL) 10 % (16-48); METAMYELOCYTES % 2 % (0-0); MONOCYTES % (MANUAL) 1 % (0-11.0); NEUTROPHILS % (MANUAL) 71 (42-76)
[2019-06-30] MEDS: ALBUTEROL FS 2.5 MG/3 ML VIAL.NEB NEB PRN (11:28)
--- NOTE | 2019-06-30 11:34 | NUR ---
RN NOTE PT REFUSED ACCUCHECK AT THIS TIME, INFORMED AND EDUCATED ABOUT INTENDED PURPOSE AND RISKS AND BENEFITS OF GETTING BLOOD SUGARS CHECKED.
--- NOTE | 2019-06-30 15:03 | NUR ---
RN NOTE PT AGAIN REFUSED IV BACTRIM AT THIS TIME SAYING "I AM GOOD", PT ALSO REFUSED VITALS. INFORMED AND EDUCATED ABOUT ANTIBIOTIC AND VITAL SIGN REFUSAL. WILL CONTINUE TO MONITOR
--- NOTE | 2019-06-30 15:30 | NUR ---
RN NOTE INSULATOR TESTER SULAIMAN WILSON FROM ID MADE AWARE OF PT REFUSING IV BACTRIM, ASKED IF POSSIBLE TO SWITCH TO PO. INSULATOR TESTER WILL F/U WITH ID DOCTOR REGARDING CHANGE
--- NOTE | 2019-06-30 16:21 | NUR ---
RN NOTE PAGE AND NOTIFIED OF PATIENT COMPLAINT OF CHEST PAIN 7 TO 8 DESCRIBED CRUSHING, ORDER GIVEN FOR STAT EKG AND TROPONIN. WILL IMPLEMENT AND CARRY OUT
--- NOTE | 2019-06-30 16:57 | NUR ---
RN NOTE STAT EKG DONE AND INFORMED BY RT THAT IT WAS SINUS TACH
--- NOTE | 2019-06-30 17:11 | NUR ---
RN NOTE PT REFUSED ACCUCHECK AGAIN AT THIS TIME, INFORMED AND EDUCATED ABOUT INTENDED PURPOSE AND RISKS AND BENEFITS OF GETTING BLOOD SUGARS CHECKED.
--- NOTE | 2019-06-30 17:15 | NUR ---
RN NOTE BLOOD DRAWN FOR TROPONIN AT THIS TIME
--- NOTE | 2019-06-30 18:19 | NUR ---
RN CLOSING NOTE PT IN BED AT LOWEST AND LOCKED POSITION WITH SIDE RAILS UPX2, A/O X3, ON 15L VIA NONREBREATHER AT THIS TIME, PT REFUSED FLUIDS/ACCUCHECKS/VITALS/ANTIBIOTICS THROUGHOUT THE SHIFT, PICC LINE IS PATENT AND INTACT, TROPONIN PENDING, SAFETY PRECAUTIONS IN PLACE, CALL LIGHT IN REACH, ALL NEEDS ATTENDED TO, WILL ENDORSE TO NIGHT RN FOR [facility].
--- NOTE | 2019-06-30 19:20 | NUR ---
PT REFUSING IVF NS DESPITE EXPLAINING RISKS AND BENEFITS EDUCATED PT.
--- NOTE | 2019-06-30 20:06 | NUR ---
MS RN PATIENT IN BED AWAKE, A/O X 3, STABLE AND NOT IN DISTRESS, SAFETY MEASURES IN PLACE. WILL CONTINUE TO MONITOR.
[2019-06-30] MEDS: SULFAMETH/TRIMETH 800/160 MG 1 UDTAB TABLET PO SCH (21:00)
--- NOTE | 2019-06-30 22:04 | NUR ---
MS RN PATIENT REFUSED ACCUCHECK, MEDICATION BACTRIM AND SEROQUEL DUE AT HS DESPITE EXPLAINING RISKS AND BENEFITS OFFERED 3 TIMES. PT STILL REFUSED.
--- NOTE | 2019-06-30 22:05 | NUR ---
PT REFUSING VITAL SIGNS AT THIS TIME PT VERBALIZED "LEAVE ME ALONE". DESPITE EXPLAINING RISKS AND BENEFITS
--- NOTE | 2019-07-01 03:00 | NUR ---
PT SLEEPING CALM AT THIS TIME. NO S/S OF DISTRESS. WILL CONTINUE TO MONITOR.
[2019-07-01] MEDS: PIPERACILLIN /TAZOBACTAM 3.375 G in IV D5W 100 ML IV SCH ×3 (04:00→19:47)
[2019-07-01] MEDS: methylPREDNISolone SOD SUCC 125 MG/2ML VIAL IV SCH ×3 (04:57→20:58)
[2019-07-01] MEDS: SULFAMETH/TRIMETH 800/160 MG 1 UDTAB TABLET PO SCH ×3 (04:58→21:00)
--- NOTE | 2019-07-01 04:59 | NUR ---
PT REFUSED ZOSYN IV ATB DUE AT 0400 AND BACTRIM PO DUE AT 0500 DESPITE EXPLAINING RISKS AND BENEFITS PER PT "NO ANTIBIOTIC ONLY STEROIDS FOR MY LUNGS". OFFERED 3 TIMES PT STILL REFUSED.
[2019-07-01] MEDS: BLOOD SUGAR DIAGNOSTIC 1 EACH STRIP IN SCH ×4 (06:30→21:10)
--- NOTE | 2019-07-01 06:31 | NUR ---
PT REFUSED ACCUCHECK DESPITE EXPLAINING RISKS AND BENEFITS OFFERED 3 TIMES PT REFUSED. PT VERBALIZED"IM NOT DIABETIC LEAVE ME ALONE".
--- NOTE | 2019-07-01 06:33 | NUR ---
MS RN PT NEEDS ATTENDED AND ANTICIPATED, MONITORED ACCORDINGLY. PT STILL ON 15L NON RE BREATHER MASK O2 SAT 100%. REFUSING TO BE CHANGED AT THIS TIME. KEPT CLEAN, DRY AND COMFORTABLE. SAFETY MEASURES AT ALL TIMES. WILL ENDORSE NEXT SHIFT POC.
[2019-07-01] MEDS: PANTOPRAZOLE 40 MG TABLET.DR PO SCH (07:30)
--- NOTE | 2019-07-01 07:30 | NUR ---
RN OPENING NOTES RECEIVED PATIENT IN BED RESTING. A/OX4, ABLE TO MAKE NEEDS KNOWN. NOT IN NAY FORM OF DISTREES, DENIED PAIN OR DISCOMFORT AT THIS TIME. NOTED ON 15 LPM OXYGEN VIA NONREBREATHER MASK, REFUSED TO BE WEANED OFF ON OXYGEN, PATIENT YELLED, "DONT FCKN TOUCH THAT OXYGEN!". REFUSED TO BE HOOK ON IVF. WILL NOTIFY MD. NO NEEDS AT THIS TIME PER PATIENT. KEPT PATIENT SAFE AND COMFORTABLE. BED IN LOW/LOCKED POSITION, SIDERAILS UPX2, HOB ELEVATED. CALL LIGHT IN REACH. WILL CONT TO MONIOTR ACCORDINGLY.
--- NOTE | 2019-07-01 07:40 | NUR ---
DR CANTU AT BEDSIDE TALKING TO THE PATIENT. MD AWARE OF PATIENT'S REFUSAL OF IVF AND O2 WEAN OFF.. PER MD, HE IS AWARE THAT PATIENT REFUSED A LOT OF THINGS.
[2019-07-01 08:00] VITALS: BP 139/77
[2019-07-01 08:03] LABS: CALCIUM, SERUM 7.7 mg/dL (8.5-10.1); CREATININE 0.6 mg/dL (0.6-1.3); POTASSIUM 4.4 mmol/L (3.5-5.1)
[2019-07-01] MEDS: FLUCONAZOLE (100 MG) 100 MG TABLET PO SCH (08:27)
[2019-07-01] MEDS: QUETIAPINE FUMARATE 25 MG TABLET PO SCH ×2 (08:27→20:58)
--- NOTE | 2019-07-01 08:29 | NUR ---
RN NOTES ASKED PATIENT IF HE WANTED TO TAKE HIS AM MEDICATIONS NOW. TOLD PATIENT EACH MEDICATIONS AND WHAT IT IS FOR. WHILE EXPLAINING THE MEDICATIONS TO THE PATIENT, PATIENT NODDED HEAD FROM SIDE TO SIDE AND YELLED "JUST LEAVE ME ALONE!". PATIENT WAS VERBALLY ABUSIVE AND HOSTILE TOWARDS STAFF. TOLD PATIENT TO CALL/PRESS CALL LIGHT IF HE NEEDS ANYTHING.
--- NOTE | 2019-07-01 08:49 | NUR ---
pt. is awake and alert refused abg. Addendum: 07/01/19 at 0849 by GEORGIA MATIAS RT Amended: Links added.
--- NOTE | 2019-07-01 11:45 | NUR ---
RN NOTE PATIENT REFUSED ACCUCHECK AT THIS TIME, INFORMED AND EDUCATED ABOUT INTENDED PURPOSE AND RISKS AND BENEFITS OF GETTING BLOOD SUGARS CHECKED. PATIENT SAID "NO!" WITH HAND GESTURE ASKING FOR THE NURSE TO GO AWAY.
[2019-07-01 12:08] LABS: ABG BASE EXCESS 2.3 mmol/L; ABG OXYGEN SATURATION 90.4 % (92.0-98.5); ABG PH 7.425 (7.350-7.450); COHb 0.3 % (0.5-1.5); MetHb 0.4 % (0.0-1.5); O2Hb 89.8 % (94.0-97.0); SITE, ABG Right Radial; VENT MODE, BG NON REBREATHER
[2019-07-01] MEDS: ALPRAZOLAM 1 MG TABLET PO PRN (13:53)
--- NOTE | 2019-07-01 14:00 | NUR ---
rn notes: ABG Patient agreed ABG. RT tomi blood.
--- NOTE | 2019-07-01 14:45 | NUR ---
Relayed to Dr Idalia SANTANA results. Per MD, patient does NOT need to be transferred to ICU, as patient requested earlier. Patient stays in [facility].
[2019-07-01 16:00] VITALS: BP 129/87
--- NOTE | 2019-07-01 16:36 | NUR ---
rn notes Dr Friedman paged and notified of patients complaints of chest pain 11/23 described as crushing. Per MD, "he did that yesterday, we did EKG and Troponin and it was negative. Its the pneumonia.". Asked MD if he wants to order something. Per MD, "NO NEW ORDERS".. Readback verified..
--- NOTE | 2019-07-01 18:04 | NUR ---
BS 161. REFUSED INSULIN COVERAGE. EXPLAINED RISKS AND BENEFITS BUT STILL REFUSED AND STATED "NO".
--- NOTE | 2019-07-01 19:00 | NUR ---
PAWEL moseley opening notes Received Pt from morning nurse. Pt is resting in bed comfortably. Respiration is normal in non rebreather 15 L. No SOB. No S/S of distress noted. ILSA Piccline is clean, intact, patent and SL. Safety precautions is maintained. Bed at low position, brakes locked, side rails upX3 and call light is within reach. Will continue to monitor. Addendum: 07/01/19 at 2202 by NAI VASQUEZ RN Pt is alert and orientedX3.
--- NOTE | 2019-07-01 19:32 | NUR ---
RN CLOSING NOTES PATIENT IN STABLE CONDITION. ALL NEEDS ATTENDED AND PROVIDED. ALL DUE MEDS GIVEN ORDERED. KEPT PATIENT SAFE AND COMFORTABLE. BED IN LOW/LOCKED POSITION, SIDERAILS UPX2, HOB ELEVATED. CALL LIGHT IN REACH. ENDORSED ACCORDINGLY.
[2019-07-01 20:00] VITALS: BP 121/81
[2019-07-01 20:33] VITALS: BP 121/81
--- NOTE | 2019-07-01 21:00 | NUR ---
PAWEL moseley notes Pt refused to have second VS check. Made aware risk and benefits. Pt keep refusing and verbally abusive. Will continue to monitor.
--- NOTE | 2019-07-01 21:09 | NUR ---
RN medsurg notes Pt refused med bactrim DS tab 800/160 mg/1 tab/po. Made aware risks and benefits. Pt keep refusing and verbally abusive. Will continue to monitor.
--- NOTE | 2019-07-01 21:11 | NUR ---
RN medsursebastian notes Pt refused 2200 blood sugar check. Made aware risks and benefits. Pt keep refusing and verbally abusive. Pt stated "get out of my room and i told you I'm not diabetic." Will continue to monitor.
[2019-07-02] VITALS (21 sets, daily range): BP systolic 89–120; BP diastolic 60–81
[2019-07-02] MEDS: PIPERACILLIN /TAZOBACTAM 3.375 G in IV D5W 100 ML IV SCH ×3 (03:55→20:08)
[2019-07-02] MEDS: SULFAMETH/TRIMETH 800/160 MG 1 UDTAB TABLET PO SCH ×3 (04:00→20:36)
[2019-07-02] MEDS: methylPREDNISolone SOD SUCC 125 MG/2ML VIAL IV SCH ×3 (04:00→20:36)
--- NOTE | 2019-07-02 04:00 | NUR ---
RN lorelei notes Staff was trying to fixed IV pump and also trying to administered Zosyn abx piggyback. Pt is verbally abusive, screaming, and yelling stated "Get out of my room and turn off the light you fuckin bitch." Pt also refused bactrim DS tab 800/160 mg/1 tab/po. Made aware risks and benefits. Pt keep refusing and verbally abusive, screaming and yelling loudly. Pt states "Get out of here you fucking bitch." Charge nurse is aware and informed. Will continue to monitor.
--- NOTE | 2019-07-02 06:50 | NUR ---
PAWEL medsurg notes Pt refused morning blood sugar check. Made aware risks and benefits. Pt keep refusing. Will continue to monitor.
--- NOTE | 2019-07-02 06:52 | NUR ---
RN medsurg closing notes Pt is resting in bed comfortably. Respiration is normal in 15 L non rebreather mask. No SOB. No S/S of distress noted. ILSA PICCLine is clean, intact and patent. Routine meds were given as ordered. Pt refused bactrim abx. Pt refused blood sugar checked AC HS. Made aware risks and benefits. Pt keep refusing. Kept Pt clean, dry and comfortable. All needs met and attended. Safety precautions is maintained. Bed at low position, brakes locked, side rails upX3 and call light is within reach. Will endorse to morning nurse for JHONATAN.
[2019-07-02] MEDS: BLOOD SUGAR DIAGNOSTIC 1 EACH STRIP IN SCH ×4 (06:58→21:51)
--- NOTE | 2019-07-02 07:12 | NUR ---
RN medsurg notes Pt refused to have blood drawn. Made aware risks and benefits. Pt keep refusing. Informed Lab techician to come back again later. Will endorse to morning nurse.
--- NOTE | 2019-07-02 07:30 | NUR ---
MS/RN Opening Note Received patient AO x 3, able to resends all stimuli. Pt is on NBM at 15L with SOB. No appears pain. Skin is warm to touch, kept clean.dry. No s/s of adverse reaction from ATB therapy. Encouraged patient to oral fluid intake as tolerated, call light within reach, will continue to monitor.
--- NOTE | 2019-07-02 07:30 | NUR ---
Patient received in bed, on NBM at 15L with SOB. Able to responds pain stimuli. Noticed with labored breath, check vital sign, noticed oxygen was decrease 76% with NBM, 14:02: called rapid response, 14:03 rapid response arrived. 14:05 BS-172, bp-108/61, hr-113, t-98, rr- 22, o2sat- 75% 15LPM with NBM. 14:07 bp- 107/ 70, hr-115, spo2- 76% with NBM. 14:[address] Cdaena call phone, no response. 14:12 Dr. Cadena texted by RN [employer] Farm[employer]. 14:15 collected ABGs by RT, sister/Marine called and notified. Spo2 87% on 15LPM via NBM, at 1418 Dr. Cadena called back via avandeo. spoke with ICU charge nurse Florence RN. 14:20 Pt's sister/Yesi and mother arrived at room 316. 14:22 bp-95/52, hr-112, spo2- 81% on 15PLM. Received abnormal ABG result. 14:31 Dr. Friedman called back for ICU transfer. 14:35 Patient transfer to ICU room 256 accompanied by sister/mother, patient in stable condition, given report ICU/Yannick RN.
[2019-07-02] MEDS: IBUPROFEN 400 MG TABLET PO PRN (10:02)
[2019-07-02] MEDS: ALPRAZOLAM 1 MG TABLET PO PRN (10:03)
[2019-07-02] MEDS: PANTOPRAZOLE 40 MG TABLET.DR PO SCH (10:04)
[2019-07-02] MEDS: QUETIAPINE FUMARATE 25 MG TABLET PO SCH ×2 (10:05→20:36)
[2019-07-02] MEDS: FLUCONAZOLE (100 MG) 100 MG TABLET PO SCH (10:05)
[2019-07-02 14:29] LABS: ABG BASE EXCESS 6.6 mmol/L; ABG OXYGEN SATURATION 78.2 % (92.0-98.5); ABG PCO2 55.7 mmHg (35.0-45.0); ABG PH 7.391 (7.350-7.450); ABG PO2 46.8 mmHg (75.0-100.0); AaDO2 465.1 mmHg; COHb 0.4 % (0.5-1.5); MetHb 0.5 % (0.0-1.5); O2Hb 77.5 % (94.0-97.0); SITE, ABG Right Radial; VENT MODE, BG NRB
--- NOTE | 2019-07-02 14:48 | NUR ---
BALLET COMPANY ARTISTIC DIRECTOR PT TRANSFERRED TO ICU FROM 3RD FLOOR AFTER LABORER SHIPYARD WAS CALLED FOR RESP DISTRESS AND ALOC. REPORT RECEIVED FROM 3W RN. CONTACTED DR CNATU DURING LABORER SHIPYARD. INTUBATION ORDER WAS RECEIVED
[2019-07-02] MEDS ORDERED: PROPOFOL 100 ML IV ONE (15:06)
[2019-07-02] MEDS: PROPOFOL 100 ML IV PRN ×3 (15:08→22:50)
[2019-07-02] MEDS ORDERED: ETOMIDATE 2 MG/ML VIAL IV ONE ×2 (15:30→17:41)
[2019-07-02] MEDS ORDERED: SUCCINYLCHOLINE CHLORIDE 20 MG/ML VIAL IV ONE ×2 (15:30→17:41)
[2019-07-02 15:35] LABS: BASOPHILS % (AUTO) 0.5 % (0.0-2.0); EOSINOPHILS % (AUTO) 0.4 % (0.0-6.0); HEMATOCRIT 36 % (39-51); HEMOGLOBIN 11.8 g/dL (13.5-17.5); LYMPHOCYTES # (AUTO) 0.3 /CMM (0.8-4.8); LYMPHOCYTES % (AUTO) 16.7 % (20.0-44.0); MEAN CORPUSCULAR HGB CONC 33 g/dl (31.0-36.0); MEAN CORPUSCULAR VOLUME 86 fL (80-96); MONOCYTES % (AUTO) 2.7 % (2.0-12.0); NEUTROPHILS # (AUTO) 1.3 /CMM (1.8-8.9); NEUTROPHILS % (AUTO) 79.7 % (43.0-81.0); RED BLOOD CELL COUNT(AUTO) 4.17 MIL/uL (4.5-6.0)
[2019-07-02 15:44] LABS: WHITE BLOOD COUNT (AUTO) 1.6 K/uL (4.3-11.0)
[2019-07-02 15:45] LABS: PLATELET COUNT (AUTO) 36 /CMM (150-450)
--- NOTE | 2019-07-02 16:00 | NUR ---
AUTOMOBILE SERVICE STATION MANAGER PT NOW ON DIPRIVAN. DOSE TITRATED UP TO RESPONSE. PT SEDATED NOW. DIPRIVAN AT 50 MCG/KG/HR.
--- NOTE | 2019-07-02 16:16 | NUR ---
FILM EXAMINER NOTE RECEIVED CALL BACK FROM DR CANTU RELAYED CRITICAL LAB RESULTS WBC 1.6 AND PLT 32. NNO
[2019-07-02 16:30] LABS: CALCIUM, SERUM 7.7 mg/dL (8.5-10.1); CREATININE 0.7 mg/dL (0.6-1.3); POTASSIUM 4.7 mmol/L (3.5-5.1)
[2019-07-02 16:31] LABS: ABG BASE EXCESS 7.5 mmol/L; ABG OXYGEN SATURATION 87.9 % (92.0-98.5); ABG PCO2 70.7 mmHg (35.0-45.0); ABG PH 7.324 (7.350-7.450); ABG PO2 61.6 mmHg (75.0-100.0); AaDO2 580.7 mmHg; COHb 0.2 % (0.5-1.5); MetHb 0.4 % (0.0-1.5); O2Hb 87.4 % (94.0-97.0); PEEP,BG 10 cm H2O; SITE, ABG Right Radial; VT, ABG 550 mL
--- NOTE | 2019-07-02 16:55 | NUR ---
PT ORALLY INTUBATED BY PITER CAPPS WITH 7.5 ET-TUBE SECURED AT 23CM. B/S EQUAL POSITIVE CO2 CHANGE DETECTED. LARGE BLOOD TINGED SECRETIONS. SETTINGS ORDERED ALARMS SET AND AUDIBLE AMBUBAG AT HEAD OF BED WITH. CHARGE MASTER SPECIALIST CALLED AND AWARE OF ABG RESULTS. Addendum: 07/02/19 at 1700 by SEAN ZAZUETA RT Amended: Links added.
--- NOTE | 2019-07-02 17:14 | NUR ---
METAL MOULDER'S ASSISTANT NOTE SPOKE WITH DR CANTU, INFORMED PATIENT BLOOD PRESSURE ON LOW 90'S. WITH ORDERS FOR LEVO ON STANDBY, NO IVF AT THIS TIME, RESTRAINTS AND OK TO INCREASE DIPRIVAN TO 100MCG/KG/MIN NEEDED. CHARGE NURSE INFORMED
[2019-07-02] MEDS ORDERED: NOREPINEPHRINE 8 MG in IV D5W 500 ML IV PRN (17:30)
--- NOTE | 2019-07-02 18:00 | NUR ---
MOTION PICTURE DIRECTOR PT REMAINS SEDATED ON DIPRIVAN DRIP. MOTHER AND SISTER CAME IN TO SEE PT. UPDATE GIVEN. SPO2 REMAINS AT 88% ON FIO2 100%. ABG WAS DRAWN AND RESULTS RELAYED TO DR LARKIN. CXR AND ABG IN AM ORDERED. DR CANTU CONTACTED FOR IVF, INCREASING PROPOFOL NEEDED DUE TO PT DRUG ABUSE HISTORY, AND VASOPRESSORS. ORDERS RECEIVED.
[2019-07-02 19:45] LABS: BAND % (MANUAL) 7 % (0.0-5.0); LYMPHOCYTES % (MANUAL) 9 % (16-48); MONOCYTES % (MANUAL) 1 % (0-11.0); NEUTROPHILS % (MANUAL) 82 (42-76); REACTIVE LYMPHOCYTES 1 % (0-0)
--- NOTE | 2019-07-02 20:00 | NUR ---
EMISSIONS INSPECTOR - NOTES - PT RECEIVED IN BED, INTUBATED WITH 7.5 ETT 25 CM AT LIP, VENT SETTINGS AC 16 550 100% PEEP 10.0. PT IS SATTING ONLY 87-89% , PT HR 120S, BP WNL, PT HAVING BLOODY SECRETIONS FROM ETT. PT HAS F/C IN PLACE DRAINING CLOUDY YELLOW URINE. PT HAS ILSA PICC LINE WIT PROPOFOL @ 50 MCG/KG/MIN. WILL CONTINUE TO MONITOR
[2019-07-02] MEDS ORDERED: PIPERACILLIN /TAZOBACTAM 3.375 G VIAL IV ONE (20:07)
--- NOTE | 2019-07-02 22:09 | NUR ---
Zuleyka Marroquin - niece [phone] pts niece wants to talk to doctor in the morning
[2019-07-02] MEDS: INSULIN REGULAR, HUMAN 100 UNIT/ML 3 ML VIAL SQ PRN (22:16)
[2019-07-03] VITALS (65 sets, daily range): BP systolic 74–119; BP diastolic 48–84
[2019-07-03] MEDS: PROPOFOL 100 ML IV PRN ×8 (02:33→23:56)
[2019-07-03] MEDS: PIPERACILLIN /TAZOBACTAM 3.375 G in IV D5W 100 ML IV SCH ×2 (04:26→13:07)
[2019-07-03] MEDS ORDERED: PIPERACILLIN /TAZOBACTAM 3.375 G VIAL IV ONE (04:26)
[2019-07-03] MEDS: SULFAMETH/TRIMETH 800/160 MG 1 UDTAB TABLET PO SCH ×2 (04:29→12:20)
[2019-07-03] MEDS: methylPREDNISolone SOD SUCC 125 MG/2ML VIAL IV SCH ×3 (04:29→20:27)
[2019-07-03 04:44] LABS: BASOPHILS % (AUTO) 0.5 % (0.0-2.0); HEMATOCRIT 40 % (39-51); HEMOGLOBIN 12.7 g/dL (13.5-17.5); LYMPHOCYTES # (AUTO) 0.2 /CMM (0.8-4.8); LYMPHOCYTES % (AUTO) 8.9 % (20.0-44.0); MEAN CORPUSCULAR HGB CONC 32 g/dl (31.0-36.0); MEAN CORPUSCULAR VOLUME 88 fL (80-96); MONOCYTES # (AUTO) 0.1 /CMM (0.1-1.30); MONOCYTES % (AUTO) 3.5 % (2.0-12.0); NEUTROPHILS # (AUTO) 2.3 /CMM (1.8-8.9); NEUTROPHILS % (AUTO) 87.1 % (43.0-81.0); RED BLOOD CELL COUNT(AUTO) 4.48 MIL/uL (4.5-6.0); WHITE BLOOD COUNT (AUTO) 2.7 K/uL (4.3-11.0)
[2019-07-03 05:08] LABS: CALCIUM, SERUM 8.2 mg/dL (8.5-10.1); CREATININE 0.9 mg/dL (0.6-1.3); POTASSIUM 5.3 mmol/L (3.5-5.1)
[2019-07-03 05:24] LABS: PLATELET COUNT (AUTO) 42 /CMM (150-450)
[2019-07-03 05:34] LABS: LYMPHOCYTES % (MANUAL) 7 % (16-48); MONOCYTES % (MANUAL) 4 % (0-11.0); NEUTROPHILS % (MANUAL) 89 (42-76)
--- NOTE | 2019-07-03 07:00 | NUR ---
RN NOTES RECEIVED PT ON BED, ORALLY INTUBATED, SEDATED, ON DIPRIVAN AT 50MCG/KG/MIN AT THIS TIME, ON VENT , O2 SAT IN 80'S , MD AWARE, ON TELE ST HR IN 130'S, SALAS DRAINING TO GRAVITY, OGT CLAMPED AND INTACT , SALVATORE SOFT RESTRAINS ON FOR PT SAFETY, PT TRIES TO PULL ON HIS LINES AND ET TUBE AT TIMES , SR UP x3, CALL LIGHT WITHIN EASY REACH, BED LOCKED AND IN LOWEST POSITION, CONTINUE TO MONITOR .
--- NOTE | 2019-07-03 08:12 | NUR ---
RT PATIENT REC'D ORALLY INTUBATED WITH A 7.5 ETT SECURED AT 25CM MID LIP. VENT SETTINGS REC'D: AC16, VT600, 100% FIO2, PEEP +10. PULMO AWARE OF LOW PO2. AWAITING NEW VENT ORDERS. AIR SUCTIONED AND PATENT. TUBE SECURE AND IN PROPER POSITION. AMBU BAG AT [facility]. PATIENT SEDATED AND COMFORTABLE. WILL CONT CURRENT PLAN OF CARE. Addendum: 07/03/19 at 0815 by DOMINICK LINARES RT Amended: Links added.
[2019-07-03] MEDS: FLUCONAZOLE (100 MG) 100 MG TABLET PO SCH (08:37)
[2019-07-03] MEDS: PANTOPRAZOLE 40 MG TABLET.DR PO SCH (08:37)
[2019-07-03] MEDS: BLOOD SUGAR DIAGNOSTIC 1 EACH STRIP IN SCH ×4 (08:40→20:40)
[2019-07-03] MEDS: INSULIN REGULAR, HUMAN 100 UNIT/ML 3 ML VIAL SQ PRN ×3 (08:40→17:25)
[2019-07-03] MEDS: QUETIAPINE FUMARATE 25 MG TABLET PO SCH ×2 (08:41→20:27)
[2019-07-03 10:48] LABS: ABG BASE EXCESS 2.9 mmol/L; ABG OXYGEN SATURATION 85.1 % (92.0-98.5); ABG PCO2 67.6 mmHg (35.0-45.0); ABG PH 7.285 (7.350-7.450); ABG PO2 58.5 mmHg (75.0-100.0); AaDO2 586.9 mmHg; COHb 0.7 % (0.5-1.5); MetHb 0.6 % (0.0-1.5); PEEP,BG 15 cm H2O; SITE, ABG Right Radial
--- NOTE | 2019-07-03 11:01 | NUR ---
agricultural lender note relayed abg results to dr phan with orders to repeat at 1400. rt and rn aware
[2019-07-03] MEDS: ACETAMINOPHEN 325 MG TABLET PO PRN (13:16)
[2019-07-03 14:08] LABS: ABG BASE EXCESS 2.5 mmol/L; ABG OXYGEN SATURATION 84.5 % (92.0-98.5); ABG PCO2 70.6 mmHg (35.0-45.0); ABG PH 7.266 (7.350-7.450); ABG PO2 57.7 mmHg (75.0-100.0); AaDO2 584.7 mmHg; COHb 0.7 % (0.5-1.5); MetHb 0.5 % (0.0-1.5); O2Hb 83.5 % (94.0-97.0); PEEP,BG 15 cm H2O; SITE, ABG Right Radial
--- NOTE | 2019-07-03 14:17 | NUR ---
per dr phan peep increased to +17. nurse aware Addendum: 07/03/19 at 1417 by DOMINICK LINARES RT Amended: Links added.
--- NOTE | 2019-07-03 15:00 | NUR ---
RN NOTES PT IS ON DIPRIVAN , SEDATED, SUPPORTIVE FAMILY AT THE BEDSIDE, VSS STABLE, CONTINUE TO MONITOR .
[2019-07-03 15:58] LABS: APPEARANCE,URINE SL CLOUDY (CLEAR); BILIRUBIN,URINE NEGATIVE (NEGATIVE); BLOOD, URINE LARGE Ery/uL (NEGATIVE); COLOR,URINE YELLOW (YELLOW); KETONES,URINE NEGATIVE (NEGATIVE); LEUKOCYTE ESTERASE ,URINE NEGATIVE (NEGATIVE); NITRITE, URINE NEGATIVE (NEGATIVE); PH,URINE 5.5 (5.0-8.0); PROTEIN,URINE TRACE mg/dl (NEGATIVE); UGLUCOSE NEGATIVE (NEGATIVE); UROBILINOGEN,URINE 0.2 EU/dL (0.2)
[2019-07-03 16:10] LABS: BACTERIA,URINE 1+ /HPF (None Seen); RBC,URINE 21-50 /HPF (0-2); SQUAMOUS EPITHELIAL CELL,UR Few /HPF (None Seen); URINE AMORPHOUS URATE Many /HPF (None Seen); WBC,URINE 0-2 /HPF (0-3)
--- NOTE | 2019-07-03 17:00 | NUR ---
RN NOTES RAW STOCK MACHINE FEEDER NOTIFED REGARDING LA AND PROCALCITONIN LEVEL .
[2019-07-03] MEDS: NOREPINEPHRINE 8 MG in IV D5W 500 ML IV PRN ×2 (18:00→18:18)
--- NOTE | 2019-07-03 18:25 | NUR ---
RN NOTES PT REMANS SEDATED, ON DIPRIVAN AT 70MCG/KG/MIN. ON LEVO AT 2MCG /HR , ON ST ON TELE , O2 SAT IN HIGH 80'S , SALAS DRINING TO GRAVITY, R UPPER PICC LINE SITE CLEAN, DRY AND INTACT, SR UP x3, CALL LIGHT WITHIN EASY REACH, BED LOCKED AND IN LOWEST POSITION, WILL ENDORSE TO [employer] OPERATORS SUPERVISOR NURSE FOR CONTINUITY OF CARE.
[2019-07-03 19:42] LABS: BILIRUBIN,DIRECT 0.2 mg/dL (0.0-0.2); BILIRUBIN,TOTAL 0.4 mg/dL (0.2-1.0)
--- NOTE | 2019-07-03 19:55 | NUR ---
RT NOTE PATIENT REC'D ETT ON [facility] VENT WITH ORDERED SETTINGS TOLERATING WELL. VENT ALARMS ON AND AUDIBLE. TRACH SECURE AND PATIENT. AIRWAY SUCTIONED PRN. AMBU BAG AT [facility]. WILL CONTINUE TO MONITOR.. Addendum: 07/03/19 at 1956 by DENISHA JJ RT Amended: Links added.
[2019-07-03] MEDS: IV NS 0.9% 1,000 ML IV PRN (20:27)
[2019-07-03] MEDS ORDERED: IV NS 0.9% 1,000 ML IV ONE (20:30)
--- NOTE | 2019-07-03 20:30 | NUR ---
Benigno PACKAGE SEALER MACHINE was made aware of Mr. Lemus 's lactic acid level 40 new order NS at 75ml/hr time 1 Liter
[2019-07-03] MEDS: SULFAMETHOXAZOLE/TRIMETHOPRIM 20 ML in IV D5W 500 ML IV SCH (23:55)
[2019-07-04] VITALS (85 sets, daily range): BP systolic 50–96; BP diastolic 19–64
[2019-07-04] MEDS: PROPOFOL 100 ML IV PRN ×6 (03:23→17:57)
[2019-07-04] MEDS: ACETAMINOPHEN 325 MG TABLET PO PRN ×3 (03:46→14:24)
[2019-07-04 04:19] LABS: BASOPHILS % (AUTO) 0.5 % (0.0-2.0); EOSINOPHILS % (AUTO) 0.1 % (0.0-6.0); HEMATOCRIT 36 % (39-51); HEMOGLOBIN 11.7 g/dL (13.5-17.5); LYMPHOCYTES # (AUTO) 0.4 /CMM (0.8-4.8); LYMPHOCYTES % (AUTO) 8.4 % (20.0-44.0); MEAN CORPUSCULAR HGB CONC 32 g/dl (31.0-36.0); MEAN CORPUSCULAR VOLUME 91 fL (80-96); MONOCYTES # (AUTO) 0.1 /CMM (0.1-1.30); MONOCYTES % (AUTO) 2.9 % (2.0-12.0); NEUTROPHILS % (AUTO) 88.1 % (43.0-81.0); RED BLOOD CELL COUNT(AUTO) 4.02 MIL/uL (4.5-6.0); WHITE BLOOD COUNT (AUTO) 4.5 K/uL (4.3-11.0)
[2019-07-04 04:35] LABS: CALCIUM, SERUM 7.6 mg/dL (8.5-10.1); CREATININE 2.2 mg/dL (0.6-1.3); MAGNESIUM 3.3 mg/dL (1.8-2.4); POTASSIUM 6.1 mmol/L (3.5-5.1)
[2019-07-04 04:52] LABS: PHOSPHORUS 11.5 mg/dL (2.5-4.9)
--- NOTE | 2019-07-04 04:59 | NUR ---
Thomas BANK EXAMINER was made aware of abnorm labs BUN 83 and Phosphate 11.5 he stated he is aware no new orders noted
[2019-07-04] MEDS: methylPREDNISolone SOD SUCC 125 MG/2ML VIAL IV SCH ×2 (05:27→12:41)
[2019-07-04] MEDS ORDERED: NOREPINEPHRINE 4 MG/4 ML AMPUL IV ONE (05:45)
[2019-07-04] MEDS: NOREPINEPHRINE 8 MG in IV D5W 500 ML IV PRN ×3 (05:58→09:32)
[2019-07-04 05:59] LABS: PLATELET COUNT (AUTO) 46 /CMM (150-450)
[2019-07-04 06:02] LABS: BAND % (MANUAL) 5 % (0.0-5.0); LYMPHOCYTES % (MANUAL) 10 % (16-48); MONOCYTES % (MANUAL) 3 % (0-11.0)
[2019-07-04 06:03] LABS: NEUTROPHILS % (MANUAL) 82 (42-76)
--- NOTE | 2019-07-04 06:35 | NUR ---
WOUND CARE CONSULT PATIENT SEEN AND SKIN INTEGRITY EVALUATED. PT PRESENTS WITH LEFT LOWER LIP OPEN WOUND OF UNKNOWN ETIOLOGY. TREATMENT RECOMMENDATIONS MADE, ALL DISCUSSED WITH NURSING STAFF AT THE BEDSIDE. PATIENT WITH JAEL AT 13, ALL PRESSURE ULCER PREVENTION MEASURES ARE NOTED TO BE IN PLACE. DNP IN AGREEMENT WITH PLAN OF CARE. Addendum: 07/04/19 at 0638 by JACQUELYN MAE WNDNU Amended: Links added.
--- NOTE | 2019-07-04 07:00 | NUR ---
RN NOTES RECEIVED PT ON BED, ORALLY INTUBATED, SEDATED, ON DIPRIVAN AT 70MCG/KG/MIN AT THIS TIME, ON VENT , O2 SAT IN 80'S , MD AWARE, ON TELE ST HR IN 120'S, PT ON LEVO AT 30MCG/MIN , SALAS DRAINING TO GRAVITY, OGT CLAMPED AND INTACT , SALVATORE SOFT RESTRAINS ON FOR PT SAFETY, PT TRIES TO PULL ON HIS LINES AND ET TUBE AT TIMES , SR UP x3, CALL LIGHT WITHIN EASY REACH, BED LOCKED AND IN LOWEST POSITION, CONTINUE TO MONITOR .
[2019-07-04] MEDS: INSULIN REGULAR, HUMAN 100 UNIT/ML 3 ML VIAL SQ PRN ×3 (08:16→17:22)
[2019-07-04] MEDS: BLOOD SUGAR DIAGNOSTIC 1 EACH STRIP IN SCH ×3 (08:16→17:23)
[2019-07-04] MEDS: PANTOPRAZOLE 40 MG TABLET.DR PO SCH (08:17)
[2019-07-04] MEDS: FLUCONAZOLE (100 MG) 100 MG TABLET PO SCH (08:17)
[2019-07-04 08:20] LABS: ABG OXYGEN SATURATION 81.8 % (92.0-98.5); ABG PCO2 79.9 mmHg (35.0-45.0); ABG PO2 64.9 mmHg (75.0-100.0); AaDO2 568.2 mmHg; COHb 0.3 % (0.5-1.5); MetHb 0.9 % (0.0-1.5); O2Hb 80.8 % (94.0-97.0); PEEP,BG 17 cm H2O; SITE, ABG Right Radial
--- NOTE | 2019-07-04 08:20 | NUR ---
RT PATIENT REC'D ORALLY INTUBATED ON [facility] VENT WITH ORDERED SETTINGS. PATIENT IN CRITICAL CONDITION. VENT ALARMS CHECKED + AUDIBLE. AMBU BAG AT [facility]. ETT SECURE AND IN PROPER POSITION. Addendum: 07/04/19 at 1206 by DOMINICK LINARES RT Amended: Links added.
[2019-07-04] MEDS: QUETIAPINE FUMARATE 25 MG TABLET PO SCH (08:27)
[2019-07-04] MEDS ORDERED: PHENYLEPHRINE 40 MG in IV D5W 250 ML IV PRN (08:30)
[2019-07-04] MEDS: SULFAMETHOXAZOLE/TRIMETHOPRIM 20 ML in IV D5W 500 ML IV SCH ×2 (08:31→16:09)
[2019-07-04] MEDS ORDERED: NEOMY SULF/BACITRAC ZN/POLY 15 GM TUBE TP SCH (09:00)
[2019-07-04] MEDS ORDERED: Sodium Bicarbonate 150 MEQ in IV D5W 1,000 ML IV PRN (09:30)
[2019-07-04] MEDS ORDERED: SODIUM BICARBONATE SYR 50 MEQ/50 ML DISP.SYRIN IV ONE ×2 (09:30→20:19)
--- NOTE | 2019-07-04 09:30 | NUR ---
RN NOTES DR MARTINEZ SULLIVAN REGARDING ABG RESULT , NEW ORDER RECEIVED, CONTINUE TO MONITOR.
--- NOTE | 2019-07-04 10:00 | NUR ---
RT PER DR HENRIQUEZ VT INCREASED TO 650. RN AWARE Addendum: 07/04/19 at 1204 by DOMINICK LINARES RT Amended: Links added.
[2019-07-04] MEDS ORDERED: PHENYLEPHRINE 80 MG in IV D5W 250 ML IV PRN (11:00)
--- NOTE | 2019-07-04 11:00 | NUR ---
RN NOTES LEVO AT THE MAXIMUM LEVEL AT THIS TIME , BP STILL LOW , DR GARCIA NOTIFED , ORDER RECEIVED FOR SHOLA GTT, CONTINUE TO MONITOR .
[2019-07-04] MEDS: PHENYLEPHRINE 80 MG in IV D5W 250 ML IV PRN ×3 (11:41→19:55)
[2019-07-04 12:12] LABS: APPEARANCE,URINE CLOUDY (CLEAR); BILIRUBIN,URINE NEGATIVE (NEGATIVE); BLOOD, URINE LARGE Ery/uL (NEGATIVE); COLOR,URINE YELLOW (YELLOW); KETONES,URINE NEGATIVE (NEGATIVE); LEUKOCYTE ESTERASE ,URINE NEGATIVE (NEGATIVE); NITRITE, URINE NEGATIVE (NEGATIVE); PH,URINE 5.5 (5.0-8.0); PROTEIN,URINE TRACE mg/dl (NEGATIVE); UGLUCOSE NEGATIVE (NEGATIVE); UROBILINOGEN,URINE 0.2 EU/dL (0.2)
[2019-07-04 12:21] LABS: BACTERIA,URINE Few /HPF (None Seen); MUCUS,URINE Few /LPF (None Seen); RBC,URINE 21-50 /HPF (0-2); SQUAMOUS EPITHELIAL CELL,UR Few /HPF (None Seen); URIC ACID CRYSTALS,URINE Many /HPF (None Seen); URINE AMORPHOUS URATE Few /HPF (None Seen); WBC,URINE 0-2 /HPF (0-3)
[2019-07-04 12:29] LABS: CREATININE, URINE 93.3 MG/DL (30.0-125.0); URINE TOTAL PROTEIN 86.1 mg/dL (0-11.9)
[2019-07-04 12:47] LABS: EOSINOPHIL,URINE None Seen
[2019-07-04] MEDS: NOREPINEPHRINE 16 MG in IV D5W 500 ML IV PRN ×2 (12:47→20:12)
--- NOTE | 2019-07-04 13:00 | NUR ---
RN NOTES BP STILL LOW O2 SAT IN 70'S , DR HENRIQUEZ ON THE FLOOR NOTIFED, ORDER RECEIVED FOR THIRD PRESSOR , VASOPRESSIN IV, CONTINUE TO MONITOR.
[2019-07-04] MEDS ORDERED: IV NS 0.9% 250 ML IV ONE (13:30)
[2019-07-04] MEDS ORDERED: VASOPRESSIN INJ 50 UNIT in IV D5W 497.5 ML IV PRN (13:30)
--- NOTE | 2019-07-04 15:00 | NUR ---
RN NOTES THREE PRESSORS ARE AT THE MAXIMUM LEVEL , DR GARCIA ON THE FLOOR SEEING THE PT , BP AND O2 SAT ARE STILL LOW, CONTINUE TO MONITOR.
--- NOTE | 2019-07-04 18:00 | NUR ---
RN NOTES BP AND O2 SAT ARE STILL LOW, HR ST AND IN 120'S DR. ADKINS ARE AWARE . PT ON THREE PRESSORS AND THEY ARE AT THE MAXIMUM LEVEL . SR UP x3, BED LOCKED AND IN LOWEST POSITION, WILL ENDORSE TO WELT WHEELER NURSE FOR CONTINUITY OF CARE.
--- NOTE | 2019-07-04 18:00 | NUR ---
RN NOTES DR GARCIA AND JUDY NOTIFED REGARDING CORTISOL LEVEL 8.9, NEW ORDER RECEIVED .
[2019-07-04] MEDS ORDERED: HYDROCORTISONE SOD SUCCINATE 100 MG/2 ML VIAL IV SCH (18:30)
--- NOTE | 2019-07-04 19:30 | NUR ---
[employer] BI CONSULTANT - NOTES - PT RECEIVED INTUBATED ON PEEP 17.0, FIO2 100%, PT IS ALSO SATTING 70S% WITH NOT GOOD WAVE FORM AND PT IS MAXED ON LEVO, SHOLA AND VASOPRESSIN. PT IS ALSO ON BICARB DRIP 150 MEQ @ 125 ML/HR. PT IS NOT ALERT, BILATERAL UPPER AND LOWER EXTREMITIES TURNING DARK AND COLD. WILL CONTINUE TO MONITOR
[2019-07-04] MEDS ORDERED: CALCIUM CHLORIDE 1,000 MG/10 ML DISP.SYRIN IV ONE (20:19)
[2019-07-04] MEDS ORDERED: EPINEPHRINE (1:10,000) SYRINGE 1 MG/10 ML DISP.SYRIN IVP ONE (20:19)
[2019-07-04] MEDS ORDERED: FEE EMEERGENCY 1 MIN EA MC ONE (20:19)
--- NOTE | 2019-07-04 20:20 | NUR ---
PT WENT ASYSTOLE, CPR STARTED AND CODE SHERRY CALLED, SEE CODE BLUE SHEET
--- NOTE | 2019-07-04 22:22 | NUR ---
RECEIVED PT INTUBATED ON VENT. @ 2003 PT CODED. CPR INITIATED. PITER CAPPS AT BEDSIDE AND DR GARCIA. @2019 PT . VENT TURNED OFF PER DR GARCIA. SEE NURSING NOTES. Addendum: 07/04/19 at 2226 by JUSTYN YARBROUGH RT Amended: Links added.
== END 2019-07-04 20:20 | disposition expired | DRG 890 ==
LOC: ER 01:40 → MEDSG2 03:23 → MEDSG1 03:58 → TELE-TD 07:06 → ICU 10:43 → TELE 06-17 22:20 → MED 06-18 08:11 → ICU 07-02 14:51
PROVIDERS: ADMIT Nurse Practitioner Acute Care; ATTEND Nurse Practitioner Acute Care
PROC: 02HV33Z Insertion of Infusion Device into Superior Vena Cava, Percutaneous Approach (ICD-10-PCS; principal; 2019-06-16)
PROC: 0BH17EZ Insertion of Endotracheal Airway into Trachea, Via Natural or Artificial Opening (ICD-10-PCS; 2019-07-02)
PROC: 5A1945Z Respiratory Ventilation, 24-96 Consecutive Hours (ICD-10-PCS; 2019-07-02)
PROC: 5A2204Z Restoration of Cardiac Rhythm, Single (ICD-10-PCS; 2019-07-02)
DX: A41.9 Sepsis, unspecified organism (principal); B20 Human immunodeficiency virus [HIV] disease; J96.02 Acute respiratory failure with hypercapnia; G93.6 Cerebral edema; E11.00 Type 2 diabetes mellitus with hyperosmolarity without nonketotic hyperglycemic-hyperosmolar coma (NKHHC); N17.0 Acute kidney failure with tubular necrosis; E43 Unspecified severe protein-calorie malnutrition; R65.21 Severe sepsis with septic shock; J96.01 Acute respiratory failure with hypoxia; B59 Pneumocystosis; G92 Toxic encephalopathy; E87.2 Acidosis; E86.0 Dehydration; J45.909 Unspecified asthma, uncomplicated; Z87.891 Personal history of nicotine dependence; E83.39 Other disorders of phosphorus metabolism; E87.1 Hypo-osmolality and hyponatremia; E03.9 Hypothyroidism, unspecified; D63.8 Anemia in other chronic diseases classified elsewhere; E87.6 Hypokalemia; F41.9 Anxiety disorder, unspecified; F22 Delusional disorders; I70.0 Atherosclerosis of aorta; E87.5 Hyperkalemia; Z99.81 Dependence on supplemental oxygen; Z91.19 Patient's noncompliance with other medical treatment and regimen; Z91.14 Patient's other noncompliance with medication regimen; Z87.01 Personal history of pneumonia (recurrent); F15.93 Other stimulant use, unspecified with withdrawal
CPT/HCPCS: 31720; 36415; 36569; 36600; 71045-TC; 71260-TC; 76770-TC; 80048-TC; 80076-TC; 80202-TC; 80305; 81000-TC; 82247-TC; 82248-TC; 82533; 82570-TC; 82803-TC; 82962-TC; 83605-TC; 83735-TC; 83880; 84100-TC; 84155-TC; 84300-TC; 84478-TC; 84484-TC; 85025-TC; 85730-TC; 87040-TC; 87070-TC; 87081-TC; 87086-TC; 87102-TC; 87449; 92950-TC; 94002-TC; 94003-TC; 94799-TC; 97116-TC; 97530-TC; 99082-TC; C1751; G0378; G0480; J0171; J0330; J1720; J1815; J2248; J2370; J2543; J2930; J3370; J3475; J3480; J3490; J7030; J7050; J7060; J7070; Q9967